=== PATIENT | female | born 1990 | race Caucasian/White ===

== ENCOUNTER 2020-01-10 23:53 | Emergency (ER) | payer BC, SELFPAY ==
--- NOTE | ~2020-01-10 | CT_ITS ---
EXAMINATION: CT abdomen pelvis w con DATE: 01/11/2020 01:06 INDICATION: Left-sided abdominal pain and vomiting. TECHNIQUE: Computed tomography (CT) of the abdomen and pelvis was performed with 100 mL Omnipaque-350 intravenous contrast. Automated exposure control and iterative reconstruction technique were employe d. The dose-length product was 1613.22 mGy-cm. COMPARISON: 12/22/2017 FINDINGS: Lung bases are clear. Heart size is normal. No pericardial or pleural effusion. Diffuse hepatic steat osis with focal sparing along the gallbladder fossa. Gallbladder, spleen, pancreas, bilateral adrenal glands and left kidney are normal. Nonobstructing 3 mm stone at the upper pole calyx of the left kid migdalia. There is wall thickening along several loops of jejunum in the left abdomen with hyperemia and e jihan of the associated small bowel mesentery. Fluid throughout the proximal colon consistent with jacinda rrhea. Appendix is normal. There is an approximately 1 cm nodular density at the cecum near the appen diceal orifice which is of similar density to the enhancing mucosa in the small bowel. Small amount o f lower density stool in the distal colon. Small amount of ascites along the liver, in the pelvis and scattered along the mesentery. No abscess or free intraperitoneal gas. Bladder, anteverted uterus an d bilateral adnexa are unremarkable. No pathologically enlarged abdominal or pelvic lymphadenopathy. Mild scattered degenerative skeletal changes. IMPRESSION: 1. Jejunal wall thickening with associated inflammatory changes, small amount of ascites and diarrhea consistent with enteritis which could be infectious, inflammatory or less likely ischemic in etiolog y. 2. 3 mm nonobstructing right renal stone. 3. 1 cm nodular density possibly a polyp near the tip of the cecum. Consider colonoscopy for further evaluation. 4. Diffuse hepatic steatosis. Reviewed, dictated and finalized at location A. IMPRESSION: 1. Jejunal wall thickening with associated inflammatory changes, small amount o f ascites and diarrhea consistent with enteritis which could be infectious, inf lammatory or less likely ischemic in etiology. 2. 3 mm nonobstructing right renal stone. 3. 1 cm nodular density possibly a polyp near the tip of the cecum. Consider co lonoscopy for further evaluation. 4. Diffuse hepatic steatosis.
[2020-01-10 23:51] VITALS: BP 92/74; PULSE 80; RESP 15; TEMP 37.1; O2SAT 100
--- NOTE | 2020-01-11 00:04 | ED.ABDPAIN ---
HPI - Abdominal Pain General Chief Complaint: Abdominal Pain Stated Complaint: abd pain Time Seen by Provider: 01/10/20 23:54 Source: patient and EMS Mode of arrival: EMS Limitations: no limitations History of Present Illness HPI narrative: Patient is a 29-year-old female who presents for evaluation of abdominal pain. Pain started approximately an hour ago, awakened the patient from sleep. Patient reporting pain in the left side of the abdomen with radiation into the left lower abdomen. She denies back or chest pain. No flank pain. No dysuria or hematuria. Patient reports she has had numerous episodes of diarrhea without blood or mucus present. She has had numerous episodes of nonbloody, nonbilious emesis. She has been diaphoretic. Patient without abdominal distention. She states she does not have any recent food indiscretions, has been eating at home. Had some possible zucchini for dinner. Recently started a new diet in effort to lose weight. No sick contacts at home. Patient denies vaginal bleeding, vaginal discharge. Related Data Allergies Allergy/AdvReac Type Severity Reaction Status Date / Time Cephalosporins Allergy Intermediate RASH Verified 01/10/20 23:57 Review of Systems Review of Systems: Narrative: CONSTITUTIONAL: Denies fever, chills, or sweats. EYES: Denies visual changes, redness, or discharge. ENT: Denies rhinorrhea, congestion, sore throat, or otalgia. CARDIOVASCULAR: Denies chest pain, palpitations, or edema. RESPIRATORY: Denies cough or dyspnea. GASTROINTESTINAL: Reports abdominal pain, nausea, vomiting and diarrhea GENITOURINARY: Denies dysuria or hematuria. SKIN: Denies rash or itching. MUSCULOSKELETAL: Denies back pain, joint pain, or myalgia. NEUROLOGIC: Denies headache, numbness, or weakness. [facility] Surgical History Surgical History (Updated 01/11/20 @ 00:11 by Josefina Rogers MD) Hx of tonsillectomy Social History Social History Smoking status: Former smoker Second hand tobacco smoke exposure: No Smoking end date: 09/07/12 Alcohol intake: current Exam Narrative: Exam Narrative: GENERAL: Awake, alert, conversant, diaphoretic HEAD: Normocephalic, atraumatic. EYES: PERRLA and EOMI. ENT: Nares clear, no rhinorrhea or epistaxis. Mucous membranes moist. NECK: Supple. CHEST: No respiratory distress, breathing even and non labored HEART: Regular rate, sinus rhythm ABDOMEN:Non distended, non tender on exam, patient has no guarding, no rigidity, no flank tenderness, no right upper quadrant tenderness EXTREMITIES: Normal range of motion. No edema. SKIN: Warm, dry, no rash. NEURO:No focal deficits. Alert and oriented x3 Course Vital Signs Vital signs: Vital Signs Temperature 37.1 C 01/10/20 23:51 Pulse Rate 80 01/10/20 23:51 Respiratory Rate 15 01/10/20 23:51 Blood Pressure 92/74 L 01/10/20 23:51 Pulse Oximetry 100 01/10/20 23:51 Temperature 37.1 C 01/10/20 23:51 Pulse Rate 78 01/11/20 01:55 Respiratory Rate 17 01/11/20 01:55 Blood Pressure 131/82 01/11/20 01:55 Pulse Oximetry 99 01/11/20 01:55 MDM - Abdominal Pain MDM Narrative Medical decision making narrative: Patient presented to the emergency department for evaluation of abdominal pain, vomiting and diarrhea. At the time of initial assessment, patient is noted to be mildly hypotensive, no tachycardia, afebrile. Patient is reporting abdominal tenderness, but on exam has no tenderness, guarding or rigidity. Patient was given IV fluids, antiemetic, pain medication with good improvement in her symptoms. Laboratory results notable for leukocytosis without electrolyte abnormality or acute kidney injury. No UTI. Patient is not . CT scan is consistent with enterocolitis. Given leukocytosis, diarrhea, I believe we should do short course of antibiotics in this patient. Patient has a penicillin allergy, thus I cannot prescribe Au
[2020-01-11] MEDS: MORPHINE SULFATE 4 MG/ML INJ IV PUSH (00:10)
[2020-01-11] MEDS: SODIUM CHLORIDE 0.9% IV 1,000 ML 999 ML IV CONT ×2 (00:10→00:24)
[2020-01-11 00:12] LABS: Basophils Absolute Auto 0.1 K/mm3 (0.0-0.1); Basophils Percent Auto 0.3 % (0.2-1.2); Eosinophils Absolute Auto 0.2 K/mm3 (0-0.3); Eosinophils Percent Auto 1.4 % (0-4.4); Hematocrit 51.2 % (37.0-47.0); Hemoglobin 17.1 g/dL (12.0-15.0); Immature Granulocyte Absolute 0.08 K/mm3 (0.00-0.031); Immature Granulocyte Percent A 0.6 % (0-0.5); Lymphocytes Absolute Auto 3.85 K/mm3 (0.9-3.2); Lymphocytes Percent Auto 26.5 % (18.3-44.2); Mean Corpuscular HGB Conc 33.4 g/dl (32-36); Mean Corpuscular Hemoglobin 28.3 pg (26-34); Mean Corpuscular Volume 84.8 fl (80-100); Mean Platelet Volume 10.1 fl (7.4-10.4); Monocytes Absolute Auto 0.7 K/mm3 (0.1-0.6); Monocytes Percent Auto 4.5 % (2.6-8.5); Neutrophils Absolute Auto 9.7 K/mm3 (1.3-6.7); Neutrophils Percent Auto 66.7 % (45.5-73.1); Platelet Count Result 365 k/mm3 (150-375); Red Blood Count 6.04 M/mm3 (4.2-5.4); Red Cell Distribution Width 12.8 % (11.5-14.5); White Blood Count 14.5 K/mm3 (4.5-10.0)
[2020-01-11 00:24] LABS: Alanine Aminotransferase 31 U/L (4-35); Albumin Level 4.3 g/dL (3.5-5.1); Alkaline Phosphatase 71 U/L (38-126); Aspartate Amino Transferase 27 U/L (14-36); Bilirubin,Total 0.3 mg/dL (0.2-1.3); Blood Urea Nitrogen 15 mg/dL (7-17); Calcium 9.5 mg/dL (8.4-10.2); Carbon Dioxide 22 mmol/L (22-30); Chloride 106 mmol/L (98-107); Estimated Glomerular Filt Rate > 60; Glucose 116 mg/dL (65-105); Lipase 106 U/L (23-300); Potassium 3.9 mmol/L (3.4-5.0); Sodium 136 mmol/L (137-145)
[2020-01-11] MEDS: DICYCLOMINE HCL INJ 20 MG/2 ML VIAL IM (00:24)
[2020-01-11 00:33] VITALS: BP 132/98
[2020-01-11 00:59] LABS: Add Urine Microscopic? YES; Appearance Urine Clear (Clear); Bacteria Urine Trace /hpf; Bilirubin Urine Negative (Negative); Blood Urine Negative (Negative); Color Urine Yellow (Yellow); Glucose Urine UA Negative (Negative); Ketones Urine Negative (Negative); Leukocyte Esterase Ur Trace LEU/UL (Negative); Mucus Urine Rare /lpf; Nitrate Urine Negative (Negative); Protein Urine 1+ mg/dL (Negative); Squamous Epithelial Cell Urine Moderate /hpf (Few); Urobilinogen Urine Negative mg/dL (<2.0)
[2020-01-11 01:04] LABS: Lactic Acid Reflex 1.7 mmol/L (0.7-2.1)
[2020-01-11 01:34] VITALS: BP 130/76; PULSE 72; RESP 19; O2SAT 100
[2020-01-11 01:55] VITALS: BP 131/82; PULSE 78; RESP 17; O2SAT 99
--- NOTE | 2020-01-11 02:34 | ECG_ITS ---
Measurements Intervals [place] Rate: 59 P: 43 CA: 159 QRS: 59 QRSD: 93 T: 49 QT: 416 QTc: 415 Interpretive Statements SINUS BRADYCARDIA LOW QRS VOLTAGE IN PRECORDIAL LEADS BORDERLINE T WAVE ABNORMALITY- ANT/INF LEADS BASELINE ARTIFACT- I, II, III, AVL, AVF BORDERLINE ECG Electronically Signed On 01-11-2020 7:14:36 CDT by Stu Michael D.O.
== END 2020-01-11 01:55 | disposition home or self-care (01) ==
PROVIDERS: Emergency Provider Emergency Medicine; PCP Emergency Medicine
DX: K52.9 Noninfective gastroenteritis and colitis, unspecified (principal); Z87.891 Personal history of nicotine dependence; R00.1 Bradycardia, unspecified; R94.31 Abnormal electrocardiogram [ECG] [EKG]
CPT/HCPCS: 36415; 74177; 80053; 81001; 81025; 83605; 83690; 85025; 87040; 87077; 87086; 87088; 87186; 93005; 96361; 96372; 96374; 96375; 99284; J0131; J0500; J2270; J7030; Q9967

== ENCOUNTER 2020-04-21 12:24 | Emergency (ER) | payer BC, SELFPAY ==
--- NOTE | ~2020-04-21 | CT_ITS ---
EXAMINATION: CT abdomen pelvis w con DATE: 04/21/2020 14:04 INDICATION: Right lower quadrant abdominal pain. TECHNIQUE: Computed tomography (CT) of the abdomen and pelvis was performed with 100 mL Omnipaque 350 intravenous contrast. Automated exposure control and iterative reconstruction technique were employe d. The dose-length product was 1448.53 mGy-cm. COMPARISON: CT abdomen and pelvis 01/11/2020 FINDINGS: The visualized portions of the lung bases are clear without pneumonia or pleural effusion. The heart size is normal. No pericardial effusion. The liver, gallbladder, spleen, pancreas, adrenal glands, and left kidney are normal. There is a 2 mm stone in right kidney. There are no dilated loops of bowel. The appendix is normal. There are no pathologically enlarged lymph nodes. There is no free intraperitoneal fluid. There is mild lumbar spondylosis. IMPRESSION: 1. 2 mm nonobstructing right kidney stone. Reviewed, dictated and finalized at location A.
[2020-04-21 12:26] VITALS: BP 135/91; PULSE 84; RESP 20; TEMP 36.7; O2SAT 99
--- NOTE | 2020-04-21 12:44 | ED.ABDPAIN ---
HPI - Abdominal Pain General Chief Complaint: Abdominal Pain Stated Complaint: post op complications, RLQ abd pain, vaginal bleed Time Seen by Provider: 04/21/20 12:43 Source: patient History of Present Illness HPI narrative: Right lower quadrant pain started yesterday, sharp stabbing, denies any fever, chills, nausea, vomiting, diarrhea, constipation, urinary symptoms. Patient is status post bilateral tubal ligation and ablation on April 10. Been having vaginal bleeding since the procedure. Related Data Home Medications Medication Instructions Recorded Confirmed alprazolam 04/21/20 hydrocodone-acetaminophen 04/21/20 ibuprofen 04/21/20 lamotrigine 04/21/20 ondansetron 04/21/20 pantoprazole PO 04/21/20 rosuvastatin mg 04/21/20 Allergies Allergy/AdvReac Type Severity Reaction Status Date / Time Cephalosporins Allergy Intermediate RASH Verified 04/21/20 12:43 Review of Systems Review of Systems: Narrative: CONSTITUTIONAL: Denies fever, chills, or sweats. EYES: Denies visual changes, redness, or discharge. ENT: Denies rhinorrhea, congestion, sore throat, or otalgia. CARDIOVASCULAR: Denies chest pain, palpitations, or edema. RESPIRATORY: Denies cough or dyspnea. GASTROINTESTINAL: Denies abdominal pain, nausea, vomiting, or diarrhea. GENITOURINARY: Denies dysuria or hematuria. SKIN: Denies rash or itching. MUSCULOSKELETAL: Denies back pain, joint pain, or myalgia. NEUROLOGIC: Denies headache, numbness, or weakness. PSYCHIATRIC: Denies anxiety or depression. PMFSH Past Medical History Medical History Depression GERD (gastroesophageal reflux disease) Surgical History Surgical History Hx of tonsillectomy Social History Social History Smoking status: Former smoker Second hand tobacco smoke exposure: No Smoking end date: 09/07/12 Alcohol intake: current Exam Narrative: Exam Narrative: General appearance: Well-developed, well-nourished, morbidly obese, no family member at bedside Skin: Normal color Head: Normocephalic, nontraumatic Eyes: Clear conjunctiva ENT: Oropharynx normal, ears normal, nose normal Neck: Supple, nontender Chest and respiratory: Airway patent, no respiratory distress, no accessory muscle use Heart: Regular rate/rhythm Abdomen: Soft, mild tenderness right lower quadrant, no organomegaly, quiet bowel sounds Vascular: Normal peripheral pulses, normal capillary refill. Musculoskeletal: Normal range of motion, nontender back Neurologic: Alert and oriented ?3, TESTER REGULATOR is normal as tested, no gross motor deficit : External Female Exam: normal external appearance Speculum Exam - Cervix: normal appearance of the cervix and Other cervical findings present (Trace of pink blood in the vaginal pouch, no active bleeding) Bimanual exam- vagina & uterus: normal bimanual exam Bimanual Exam- Adnexa, other: normal adnexae Course Course Emergency Course: Stable Vital Signs Vital signs: Vital Signs Temperature 36.7 C 04/21/20 12:26 Pulse Rate 84 04/21/20 12:26 Respiratory Rate 20 04/21/20 12:26 Blood Pressure 135/91 H 04/21/20 12:26 Pulse Oximetry 99 04/21/20 12:26 Temperature 36.7 C 04/21/20 15:17 Pulse Rate 60 04/21/20 15:17 Respiratory Rate 14 04/21/20 15:17 Blood Pressure 131/68 04/21/20 15:17 Pulse Oximetry 100 04/21/20 15:17 MDM - Abdominal Pain MDM Narrative Medical decision making narrative: Labs, CT abdomen and pelvis with IV contrast, IV fluid ordered. Further plan to follow Differential Diagnosis Dif
[2020-04-21 13:37] LABS: Basophils Percent Auto 0.4 % (0.2-1.2); Eosinophils Absolute Auto 0.4 K/mm3 (0-0.3); Eosinophils Percent Auto 4.1 % (0-4.4); Hematocrit 42.3 % (37.0-47.0); Hemoglobin 14.3 g/dL (12.0-15.0); Immature Granulocyte Absolute 0.03 K/mm3 (0.00-0.031); Immature Granulocyte Percent A 0.3 % (0-0.5); Lymphocytes Absolute Auto 2.42 K/mm3 (0.9-3.2); Lymphocytes Percent Auto 26.7 % (18.3-44.2); Mean Corpuscular HGB Conc 33.8 g/dl (32-36); Mean Corpuscular Hemoglobin 28.6 pg (26-34); Mean Corpuscular Volume 84.6 fl (80-100); Mean Platelet Volume 10.9 fl (7.4-10.4); Monocytes Absolute Auto 0.5 K/mm3 (0.1-0.6); Monocytes Percent Auto 5.3 % (2.6-8.5); Neutrophils Absolute Auto 5.7 K/mm3 (1.3-6.7); Neutrophils Percent Auto 63.2 % (45.5-73.1); Platelet Count Result 315 k/mm3 (150-375); Red Cell Distribution Width 12.8 % (11.5-14.5); White Blood Count 9.1 K/mm3 (4.5-10.0)
[2020-04-21 13:50] VITALS: BP 131/80; PULSE 74; RESP 18; TEMP 36.8; O2SAT 100
[2020-04-21 13:50] LABS: Alanine Aminotransferase 24 U/L (4-35); Albumin Level 4.6 g/dL (3.5-5.1); Alkaline Phosphatase 67 U/L (38-126); Anion Gap 10 mmol/L (8-16); Aspartate Amino Transferase 24 U/L (14-36); Bilirubin,Total 0.4 mg/dL (0.2-1.3); Blood Urea Nitrogen 10 mg/dL (7-17); Calcium 9.6 mg/dL (8.4-10.2); Carbon Dioxide 20 mmol/L (22-30); Chloride 108 mmol/L (98-107); Estimated CRCL calculation 126 ml/min; Estimated Glomerular Filt Rate > 60; Glucose 82 mg/dL (65-105); Lipase 75 U/L (23-300); Potassium 3.9 mmol/L (3.4-5.0); Sodium 138 mmol/L (137-145)
[2020-04-21] MEDS: SODIUM CHLORIDE 0.9% IV 1,000 ML 999 ML IV CONT (14:13)
[2020-04-21] MEDS: MORPHINE SULFATE 4 MG/ML INJ IV PUSH (15:12)
[2020-04-21] MEDS: ONDANSETRON INJ 4 MG/2 ML VIAL IV PUSH (15:12)
[2020-04-21 15:17] VITALS: BP 131/68; PULSE 60; RESP 14; TEMP 36.7; O2SAT 100
--- NOTE | 2020-04-21 15:38 | ED.ABDPAIN ---
HPI - Abdominal Pain General Chief Complaint: Abdominal Pain Stated Complaint: post op complications, RLQ abd pain, vaginal bleed Time Seen by Provider: 04/21/20 12:43 Source: patient Related Data Home Medications Medication Instructions Recorded Confirmed alprazolam 04/21/20 hydrocodone-acetaminophen 04/21/20 ibuprofen 04/21/20 lamotrigine 04/21/20 ondansetron 04/21/20 pantoprazole PO 04/21/20 rosuvastatin mg 04/21/20 Allergies Allergy/AdvReac Type Severity Reaction Status Date / Time Cephalosporins Allergy Intermediate RASH Verified 04/21/20 12:43 [facility] Past Medical History Medical History Depression GERD (gastroesophageal reflux disease) Surgical History Surgical History Hx of tonsillectomy Social History Social History Smoking status: Former smoker Second hand tobacco smoke exposure: No Smoking end date: 09/07/12 Alcohol intake: current Course Consultations Consultation #1: Dr. Titus. Patient can go home call Dr. Smith Thursday Date: 04/21/20 Time: 15:39 Vital Signs Vital signs: Vital Signs Temperature 36.7 C 04/21/20 12:26 Pulse Rate 84 04/21/20 12:26 Respiratory Rate 20 04/21/20 12:26 Blood Pressure 135/91 H 04/21/20 12:26 Pulse Oximetry 99 04/21/20 12:26 Temperature 36.7 C 04/21/20 15:17 Pulse Rate 60 04/21/20 15:17 Respiratory Rate 14 04/21/20 15:17 Blood Pressure 131/68 04/21/20 15:17 Pulse Oximetry 100 04/21/20 15:17 MDM - Abdominal Pain Lab Data Result diagrams: 04/21/20 13:24 04/21/20 13:23 Labs: Lab Results 04/21/20 04/21/20 04/21/20 Range/Units 13:23 13:24 13:27 WBC 9.1 (4.5-10.0) K/mm3 RBC 5.00 (4.2-5.4) M/mm3 Hgb 14.3 (12.0-15.0) g/dL Hct 42.3 (37.0-47.0) % MCV 84.6 (80-100) fl MCH 28.6 (26-34) pg MCHC 33.8 (32-36) g/dl RDW 12.8 (11.5-14.5) % Plt Count 315 (150-375) k/mm3 MPV 10.9 H (7.4-10.4) fl Immature Gran % (Auto) 0.3 (0-0.5) % Neut % (Auto) 63.2 (45.5-73.1) % Lymph % (Auto) 26.7 (18.3-44.2) % [place] % (Auto) 5.3 (2.6-8.5) % Eos % (Auto) 4.1 (0-4.4) % Baso % (Auto) 0.4 (0.2-1.2) % Lymph # (Auto) 2.42 (0.9-3.2) K/mm3 [place] # (Auto) 0.5 (0.1-0.6) K/mm3 Eos # (Auto) 0.4 H (0-0.3) K/mm3 Baso # (Auto) 0.0 (0.0-0.1) K/mm3 Abs Immat Gran (auto) 0.03 (0.00-0.031) K/mm3 Absolute Neuts (auto) 5.7 (1.3-6.7) K/mm3 Absolute Nucleated RBC 0.0 (0.0-0.012) K/mm3 Nucleated RBC % 0.0 (0.0-0.2) % Sodium 138 (137-145) mmol/L Potassium 3.9 (3.4-5.0) mmol/L Chloride 108 H (98-107) mmol/L Carbon Dioxide 20 L (22-30) mmol/L Anion Gap 10 (8-16) mmol/L BUN 10 D (7-17) mg/dL Creatinine 0.80 (0.7-1.0) mg/dL Estim Creat Clear Calc 126 ml/min Estimated GFR > 60 (59 - ) Glucose 82 (65-105) mg/dL Calcium 9.6 (8.4-10.2) mg/dL Total Bilirubin 0.4 (0.2-1.3) mg/dL AST 24 (14-36) U/L ALT 24 (4-35) U/L Alkaline Phosphatase 67 (38-126) U/L Total Protein 8.0 (6.3-8.2) g/dL Albumin 4.6 (3.5-5.1) g/dL Lipase 75 (23-300) U/L Blood Type O Negative Antibody Screen Negative Imaging Data Radiologist's impression: ITS Impressions Abdomen/Pelvis CT 04/21/20 14:05 IMPRESSION: 1. 2 mm nonobstructing right kidney stone. Discharge Plan Discharge Clinical Impression: DUH (dysfunctional uterine hemorrhage) Abdominal pain Qualifiers: Abdominal location: right lower quadrant Qualified Code(s): R10.31 - Right lower quadrant pain Condition: Stable Instructions: Dysfunctional Uterine Bleeding (ED), Abdominal Pain (ED) Additional Instructions: Return if symptoms are worsening , call your family physician for appointment, take Ty
[2020-04-21 15:59] LABS: Add Urine Microscopic? YES; Appearance Urine Clear (Clear); Bacteria Urine Trace /hpf; Bilirubin Urine Negative (Negative); Blood Urine 3+ (Negative); Color Urine Yellow (Yellow); Glucose Urine UA Negative (Negative); Ketones Urine 1+ mg/dL (Negative); Leukocyte Esterase Ur Trace LEU/UL (Negative); Mucus Urine Rare /lpf; Nitrate Urine Negative (Negative); Protein Urine 1+ mg/dL (Negative); RBC Urine 51-75 /hpf (0-2); Squamous Epithelial Cell Urine Many /hpf (Few); Urobilinogen Urine Negative mg/dL (<2.0); WBC Urine 16-20 /hpf
[2020-04-21 16:01] LABS: Specific Grav Ur > 1.060 (1.001-1.035)
[2020-04-21 16:26] VITALS: BP 133/76; PULSE 72; RESP 16; TEMP 36.8; O2SAT 100
== END 2020-04-21 16:26 | disposition home or self-care (01) ==
LOC: ANHED 14:07
PROVIDERS: Emergency Provider Emergency Medicine; PCP Emergency Medicine
DX: N93.9 Abnormal uterine and vaginal bleeding, unspecified (principal); R10.31 Right lower quadrant pain; K21.9 Gastro-esophageal reflux disease without esophagitis; F32.9 Major depressive disorder, single episode, unspecified; Z87.891 Personal history of nicotine dependence; N20.0 Calculus of kidney; Z98.51 Tubal ligation status
CPT/HCPCS: 36415; 74177; 80053; 81001; 81025; 83690; 85025; 86850; 86900; 86901; 87086; 87088; 96374; 96375; 99284; J2270; J2405; J7030; Q9967

== ENCOUNTER 2020-09-28 17:39 | Emergency (ER) | payer BC, SELFPAY ==
--- NOTE | 2020-09-28 17:40 | ECG_ITS ---
Measurements Intervals [place] Rate: 65 P: 62 OR: 158 QRS: 46 QRSD: 93 T: 64 QT: 410 QTc: 427 Interpretive Statements SINUS RHYTHM WITH SINUS ARRHYTHMIA INCOMPLETE RIGHT BUNDLE BRANCH BLOCK DELAYED PRECORDIAL R/S TRANSITION BORDERLINE T WAVE ABNORMALITY- ANTERIOR LEADS BORDERLINE ECG Electronically Signed On 09-28-2020 19:32:38 DIP LUBE OPERATOR by Stu Michael D.O.
[2020-09-28 17:41] VITALS: BP 133/84; PULSE 64; RESP 20; TEMP 36.2; O2SAT 99
[2020-09-28 18:29] LABS: Basophils Percent Auto 0.4 % (0.2-1.2); Eosinophils Absolute Auto 0.3 K/mm3 (0-0.3); Hematocrit 42.6 % (37.0-47.0); Hemoglobin 14.4 g/dL (12.0-15.0); Immature Granulocyte Absolute 0.02 K/mm3 (0.00-0.031); Immature Granulocyte Percent A 0.2 % (0-0.5); Lymphocytes Absolute Auto 2.24 K/mm3 (0.9-3.2); Mean Corpuscular HGB Conc 33.8 g/dl (32-36); Mean Corpuscular Hemoglobin 28.9 pg (26-34); Mean Corpuscular Volume 85.5 fl (80-100); Mean Platelet Volume 9.9 fl (7.4-10.4); Monocytes Absolute Auto 0.5 K/mm3 (0.1-0.6); Monocytes Percent Auto 5.5 % (2.6-8.5); Neutrophils Absolute Auto 5.9 K/mm3 (1.3-6.7); Neutrophils Percent Auto 65.9 % (45.5-73.1); Platelet Count Result 293 k/mm3 (150-375); Red Blood Count 4.98 M/mm3 (4.2-5.4); Red Cell Distribution Width 12.8 % (11.5-14.5)
[2020-09-28 18:42] LABS: Anion Gap 8 mmol/L (8-16); Blood Urea Nitrogen 13 mg/dL (7-17); Calcium 9.8 mg/dL (8.4-10.2); Carbon Dioxide 26 mmol/L (22-30); Chloride 105 mmol/L (98-107); Estimated CRCL calculation 120 ml/min; Estimated Glomerular Filt Rate > 60; Glucose 100 mg/dL (65-105); Potassium 4.4 mmol/L (3.4-5.0); Sodium 139 mmol/L (137-145)
== END 2020-09-28 19:12 | disposition left against medical advice (07) ==
LOC: ANHED 19:33
PROVIDERS: Emergency Provider Emergency Medicine; PCP Emergency Medicine
DX: R42 Dizziness and giddiness (principal)
CPT/HCPCS: 36415; 80048; 85025; 93005; 99199

== ENCOUNTER 2021-05-11 16:15 | Emergency (ER) | payer BC, SELFPAY ==
--- NOTE | ~2021-05-11 | CT_ITS ---
EXAMINATION: CT abdomen pelvis w con DATE: 05/11/2021 19:21 INDICATION: Right upper quadrant abdominal pain. TECHNIQUE: Computed tomography (CT) of the abdomen and pelvis was performed with 100 mL Omnipaque 350 intravenous contrast. Automated exposure control and iterative reconstruction technique were employe d. The dose-length product was 1366.46 mGy-cm. COMPARISON: CT abdomen and pelvis 04/21/2020 FINDINGS: The visualized portions of the lung bases are clear without pneumonia or pleural effusion. The heart size is normal. No pericardial effusion. The liver, gallbladder, spleen, pancreas, adrenal glands, and left kidney are normal. There is a 2 mm stone in right kidney. There are no dilated loops of bowel. The appendix is normal. There are no pathologically enlarged lymph nodes. There is no free intraperitoneal fluid. There is mild lumbar spondylosis. IMPRESSION: 1. 2 mm nonobstructing right kidney stone. Reviewed, dictated and finalized at location A.
[2021-05-11 16:22] VITALS: BP 136/84; PULSE 107; RESP 20; TEMP 36.7; O2SAT 100
[2021-05-11 17:11] LABS: Basophils Percent Auto 0.3 % (0.2-1.2); Eosinophils Absolute Auto 0.2 K/mm3 (0-0.3); Eosinophils Percent Auto 2.2 % (0-4.4); Hematocrit 42.4 % (37.0-47.0); Hemoglobin 14.2 g/dL (12.0-15.0); Immature Granulocyte Absolute 0.03 K/mm3 (0.00-0.031); Immature Granulocyte Percent A 0.3 % (0-0.5); Lymphocytes Absolute Auto 2.46 K/mm3 (0.9-3.2); Mean Corpuscular HGB Conc 33.5 g/dl (32-36); Mean Corpuscular Hemoglobin 29.2 pg (26-34); Mean Corpuscular Volume 87.2 fl (80-100); Mean Platelet Volume 10.6 fl (7.4-10.4); Monocytes Absolute Auto 0.4 K/mm3 (0.1-0.6); Neutrophils Absolute Auto 5.6 K/mm3 (1.3-6.7); Neutrophils Percent Auto 64.2 % (45.5-73.1); Platelet Count Result 263 k/mm3 (150-375); Red Blood Count 4.86 M/mm3 (4.2-5.4); Red Cell Distribution Width 12.3 % (11.5-14.5); White Blood Count 8.8 K/mm3 (4.5-10.0)
[2021-05-11 17:21] LABS: Alanine Aminotransferase 22 U/L (4-35); Albumin Level 4.7 g/dL (3.5-5.1); Alkaline Phosphatase 67 U/L (38-126); Anion Gap 10 mmol/L (8-16); Aspartate Amino Transferase 25 U/L (14-36); Bilirubin,Total 0.4 mg/dL (0.2-1.3); Blood Urea Nitrogen 10 mg/dL (7-17); Calcium 9.8 mg/dL (8.4-10.2); Carbon Dioxide 19 mmol/L (22-30); Chloride 110 mmol/L (98-107); Estimated CRCL calculation 132 ml/min; Estimated Glomerular Filt Rate > 60; Glucose 97 mg/dL (65-110); Lipase 93 U/L (23-300); Potassium 3.6 mmol/L (3.4-5.0); Sodium 139 mmol/L (137-145)
[2021-05-11 17:21] LABS: Add Urine Microscopic? YES; Appearance Urine Clear (Clear); Bacteria Urine Trace /hpf; Bilirubin Urine Negative (Negative); Blood Urine Negative (Negative); Color Urine Yellow (Yellow); Glucose Urine UA Negative (Negative); Ketones Urine 1+ mg/dL (Negative); Leukocyte Esterase Ur Negative LEU/UL (Negative); Mucus Urine Few /lpf; Nitrate Urine Negative (Negative); Protein Urine Negative (Negative); Specific Grav Ur 1.025 (1.001-1.035); Squamous Epithelial Cell Urine Many /hpf (Few); Urobilinogen Urine Negative mg/dL (<2.0); WBC Urine 0-3 /hpf
--- NOTE | 2021-05-11 18:40 | ED.ABDPAIN ---
HPI - Abdominal Pain General Chief Complaint: Abdominal Pain Stated Complaint: abd pain Time Seen by Provider: 05/11/21 18:09 Source: patient Mode of arrival: ambulatory Limitations: no limitations History of Present Illness HPI narrative: This is a 30-year-old female that presents the emergency department for right upper quadrant pain present over the last 5 days. Reports the pain is sharp in nature. She feels pressure in the right upper quadrant after she eats sometimes. Does also report some diarrhea. Denies fever, nausea, vomiting, or dysuria. Related Data Home Medications Medication Instructions Recorded Confirmed alprazolam 04/21/20 hydrocodone-acetaminophen 04/21/20 ibuprofen 04/21/20 lamotrigine 04/21/20 ondansetron 04/21/20 pantoprazole PO 04/21/20 rosuvastatin mg 04/21/20 Allergies Allergy/AdvReac Type Severity Reaction Status Date / Time Cephalosporins Allergy Intermediate RASH Verified 04/21/20 12:43 Review of Systems Review of Systems: CONSTITUTIONAL: Denies fever GASTROINTESTINAL: Reports abdominal pain. Denies nausea, vomiting GENITOURINARY: Denies dysuria All systems reviewed & are unremarkable except as noted in HPI and below PMFSH Past Medical History Medical History (Updated 05/11/21 @ 20:19 by Daiana Islas PA-C) Depression GERD (gastroesophageal reflux disease) Surgical History Surgical History Hx of tonsillectomy Social History Social History Smoking status: Former smoker Second hand tobacco smoke exposure: No Smoking end date: 09/07/12 Alcohol intake: current Gender identity (if verbalized by the patient): Female Exam Narrative: GENERAL: Well-appearing, obese, and in no acute distress. HEAD: Normocephalic, atraumatic. EYES: EOMI. CHEST: Clear to auscultation. No respiratory distress. No wheezes rales or rhonchi HEART: Regular rate and rhythm. No murmur heard. Normal peripheral pulses. ABDOMEN: Soft, nondistended, normal active bowel sounds. Tender to palpation in the right upper quadrant, without guarding. No CVA tenderness EXTREMITIES: Normal range of motion. No edema. SKIN: Warm, dry, no rash. NEURO: No focal deficits. Alert and oriented x3. PSYCH: Normal mood and affect Course Vital Signs Vital signs: Vital Signs Temperature 98.1 F 05/11/21 16:22 Pulse Rate 107 H 05/11/21 16:22 Respiratory Rate 20 05/11/21 16:22 Blood Pressure 136/84 05/11/21 16:22 Pulse Oximetry 100 05/11/21 16:22 Temperature 98.1 F 05/11/21 16:22 Pulse Rate 107 H 05/11/21 16:22 Respiratory Rate 20 05/11/21 16:22 Blood Pressure 136/84 05/11/21 16:22 Pulse Oximetry 100 05/11/21 16:22 MDM - Abdominal Pain MDM Narrative Medical decision making narrative: Patient presents to the emergency department for right upper quadrant abdominal pain present over the last 5 days. She is afebrile and nontoxic-appearing. Her vitals are stable. CBC and metabolic panel without concerning findings. Lipase is normal. UA without evidence of infection. Bedside test is negative. CT scan abdomen and pelvis is without acute findings. She has a nonobstructing 2 mm right kidney stone. Patient was updated on case findings. She is stable and felt appropriate for further outpatient evaluation. She was given warnings to return to the ER Lab Data Attestation: I reviewed the patient's lab results. Result diagrams: 05/11/21 16:42 05/11/21 16:42 Labs: Lab Results 05/11/21 05/11/21 05/11/21 Range/Units 16:42 16:42 16:43 WBC 8.8 (4.5-10.0) K/mm3 RBC 4.86 (4.2-5.4) M/mm3 Hgb 14.2 (12.0-15.0) g/dL Hct 42.4 (37.0-47.0) % MCV 87.2 (80-100) fl MCH 29.2 (26-34) pg MCHC 33.5 (32-36) g/dl RDW 12.3 (11.5-14.5) % Plt Count 263 (150-375) k/mm3 MPV 10.6 H (7.4-10.4) fl Im
[2021-05-11 20:40] VITALS: BP 135/95; PULSE 60; RESP 18; TEMP 36.6; O2SAT 100
== END 2021-05-11 20:50 | disposition home or self-care (01) ==
PROVIDERS: Emergency Provider Emergency Medicine
DX: R10.11 Right upper quadrant pain (principal); K21.9 Gastro-esophageal reflux disease without esophagitis; Z87.891 Personal history of nicotine dependence; N20.0 Calculus of kidney; F32.9 Major depressive disorder, single episode, unspecified
CPT/HCPCS: 36415; 74177; 80053; 81001; 81025; 83690; 85025; 99284; Q9967

== ENCOUNTER 2022-05-16 22:51 | Emergency (ER) | payer OTHER, SELFPAY ==
[2022-05-16 23:03] VITALS: BP 130/111; PULSE 101; RESP 18; TEMP 36.6; O2SAT 98
[2022-05-17 02:10] VITALS: BP 139/90; PULSE 73; RESP 16; O2SAT 100
--- NOTE | 2022-05-17 02:22 | ED.ANIMALBIT ---
HPI - Animal Bite General Chief Complaint: Animal Bite <Ynois Serrano DO - Last Filed: 05/17/22 02:50> Stated Complaint: right hand, pinkie laceration <Yonis Serrano DO - Last Filed: 05/17/22 02:50> Time Seen by Provider: 05/17/22 02:11 <Yonis Serrano DO - Last Filed: 05/17/22 02:50> Source: RN notes reviewed <Yonis Serrano DO - Last Filed: 05/17/22 02:50> History of Present Illness HPI narrative: Patient presents emergency department from home for cat scratch. 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 Patient states she is allergic to cephalosporins but has taken Augmentin before in the past with no differential denies any numbness or tingling to the finger <Yonis Serrano DO - Last Filed: 05/17/22 02:50> Related Data Home Medications: Home Medications Medication Instructions Recorded Confirmed alprazolam 0.5 mg tablet 04/21/20 hydrocodone 5 mg-acetaminophen 325 04/21/20 mg tablet ibuprofen 800 mg tablet 04/21/20 lamotrigine 100 mg tablet 04/21/20 ondansetron 4 mg disintegrating 04/21/20 tablet pantoprazole 40 mg tablet,delayed PO 04/21/20 release rosuvastatin 10 mg tablet mg 04/21/20 <Yonis Serrano DO - Last Filed: 05/17/22 02:50> Allergies/Adverse Reactions: Allergies Allergy/AdvReac Type Severity Reaction Status Date / Time Cephalosporins Allergy Intermediate RASH Verified 05/17/22 02:09 <Yonis Serrano DO - Last Filed: 05/17/22 02:50> Review of Systems Review of Systems: Gen.: Denies fevers or chills Musculoskeletal: See HPI Neuro: Denies numbness, tingling, weakness Skin: Rowena of reports laceration to right fifth digit Endo: Denies DM <Yonis Serrano DO - Last Filed: 05/17/22 02:50> PMFSH Past Medical History Medical History: Medical History (Updated 05/17/22 @ 02:25 by Yonis Serrano DO) Depression GERD (gastroesophageal reflux disease) <Yonis Serrano DO - Last Filed: 05/17/22 02:50> Surgical History Surgical History: Surgical History Hx of tonsillectomy <Yonis Serrano DO - Last Filed: 05/17/22 02:50> Social History Social History: Social History Smoking status: Former smoker Second hand tobacco smoke exposure: No Smoking end date: 09/07/12 Alcohol intake: current Gender identity (if verbalized by the patient): Female <DO Karen Sapp Last Filed: 05/17/22 02:50> Exam Narrative: APPEARANCE: No acute distress, nontoxic, resting in bed Eyes: EOMI HEENT: Normocephalic, atraumatic, RESPIRATORY: No respiratory distress MUSCULOSKELETAl: Right fifth digit over the palmar aspect has 1.5 cm laceration that is gaping with fat exposure between the PIP and DIP joint, full flexion-extension of the MCP PIP and DIP joints of the right fifth digit capillary refill less than 3 seconds neurovascular intact NEURO: Awake and alert. Following commands, speech normal, no focal deficits SKIN:: Warm, dry. Normal Color no rash or lesions <Yonis Serrano DO - Last Filed: 05/17/22 02:50> Course Course Emergency Course: Discussed with patient results of workup and diagnosis. Discussed need for follow-up with primary care, proper use of medication, and reasons to return to the emergency department. Patient understands and agrees to current treatment plan <Yonis Serrano DO - Last Filed: 05/17/22 02:50> Vital Signs Vital signs: Vital Signs Temperature 97.8 F 05/16/22 23:03 Pulse Rate 101 H 05/16/22 23:03 Respiratory Rate 18 09
[2022-05-17] MEDS: LIDOCAINE HCL 1% LOCAL INJ 20 ML VIAL (02:34)
[2022-05-17] MEDS: AMOXICILLIN/CLAVULANATE K 875-125 MG TAB 1 TABLET PO (02:34)
[2022-05-17 03:02] VITALS: BP 138/74; PULSE 80; RESP 16; TEMP 36.8; O2SAT 100
== END 2022-05-17 03:03 | disposition home or self-care (01) ==
LOC: ANHED 05-17 02:26
PROVIDERS: Emergency Provider Emergency Medicine
DX: S61.216A Laceration without foreign body of right little finger without damage to nail, initial encounter (principal); K21.9 Gastro-esophageal reflux disease without esophagitis; F32.A Depression, unspecified; Z87.891 Personal history of nicotine dependence; W55.03XA Scratched by cat, initial encounter
CPT/HCPCS: 12001; 99283; A9270

== ENCOUNTER → 2023-08-03 12:15 | Outpatient (CLI) | payer SELFPAY ==
--- NOTE | ~2023-08-03 | XR_ITS ---
EXAMINATION: XR chest 2V 08/03/2023 13:11 INDICATION: Cough PROCEDURE: 2 view chest COMPARISON: No prior studies for comparison. FINDINGS: The lungs are clear. The cardiomediastinal silhouette is within normal limits. There are no pleural effusions. There is no pneumothorax suspected. IMPRESSION: 1: NO ACUTE CARDIOPULMONARY DISEASE. Reviewed, dictated and finalized at location [facility]
== END ==
DX: R05.9 Cough, unspecified (principal)
CPT/HCPCS: 71046

== ENCOUNTER 2025-01-15 06:52 | Emergency (ER) | payer SELFPAY ==
--- OUTSIDE RECORDS SUMMARY | 2025-01-15 06:54 | XMS_ITS | Clinical Summary ---
Author Organization [facility] Address [address] [place] [address] Care Team Providers Care Station Agent Name Role Phone Glo Oh MD Primary Care Pro vider Allergies Active Allergy Reactions Criticality Noted Date Comments Cephalosporins Other (see comment) 04/20/2019 Sore in mouth Medications citalopram 20 MG tablet Take 10 mg by mouth daily. Active lamotrigine 100 MG tablet Take 100 mg by mouth nightly. Active hydrOXYzine 10 MG tablet Take 10-20 mg by mouth 2 (two) times daily as needed for Anxiety. Active ibuprofen 600 MG tablet Take 600 mg by mouth every 6 (six) hours as needed for Pain. Active ondansetron 4 MG tablet Take 4 mg by mouth every 8 (eight) hours as needed for Nausea. Active vitamin B-12 (VITAMIN B12) 100 MCG tablet Take 50 mcg by mouth daily. Unsure of dose Active Calcium Carbonate Antacid (ADRIENNE-SELTZER ANTACID OR) Take 1 capsule by mouth daily as needed. Active hydrocodone-asif taminophen 7.5-325 MG/15ML Solution solution Take 15-20 mLs by mouth every 6 (six) hours as needed for Pain. 500 mL 04/21/2019 Active Active Problems No known active problems Family History Medical History Relation Comments Cancer Maternal Grandmother breast,live r bipolar Mother Diabetes Paternal Grandmother Relation Status Comments Maternal Grandmother Mother Paternal Grandmother Social History Tobacco Use Types Packs/Day Years Used Date Smoking Tobacco: Former Cigarettes 0 04/20/2007 - 04/20/2014 Smokeless Tobacco: Never Comments:does vap currently- low nicotine level Alcohol Use Standard Drinks/Week Comments No 0 (1 standard drink = 0.6 oz pur e alcohol) AUDIT-C Answer Date Recorded Frequency of Alcohol Consumption Never 04/20/2019 Average Number of Drinks Not on file 019 Frequency of Binge Drinking Not on file 04/07 Comments No Sex and Gender Information Value Date Recorded Sex Assigned at Not on file Legal Sex Female 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[employer] Gender Identity Not on file Sexual Orientation Not on file Last Filed Vital Signs Vital Sign Reading Time Taken Comments Blood Pressure 134/90 04/21/2019 2:20 PM CDT Pulse 100 04/21/2019 2:20 PM CDT Temperature 36.9 C (98.5 F) 04/21/2019 2:20 PM CDT Respiratory Rate 18 04/21/2019 2:20 PM CDT Oxygen Saturation 95% 04/21/2019 2:20 PM CDT Inhaled Oxygen Concentration - - Weight 128.1 kg (282 lb 6.6 oz) 04/21/2019 9:54 AM CDT Height 170.2 cm (5' 7 ) 04/21/2019 9:54 AM CDT Body Mass Index 44.23 04/21/2019 9:54 AM CDT Plan of Treatment Health Maintenance Due Date Last Done Comments Cervical Cancer Screening Pa p Smear (Age 30 to 64) Every 3 Years 1992 Annual Physical 1995 Hepatitis C 2010 DTaP, Tdap and Td Vaccines ( 1 - Tdap) 2011 Hepatitis B Vaccines (1 of 3 - 19+ 3-dose series) 2011 Cervical Cancer Screening Pa p with HPV Testing (Age 30 to 64) Every 5 Years 2022 Cervical Cancer Screening with HPV 2022 COVID-19 Vaccine (2023-2 5 season) 2024 HPV Vaccines Aged Out No longer eligi ble based on patient's age to complete this topic Meningococcal B Vaccine Aged Out No l onger eligible based on patient's age to complete this topic Meningococcal Vaccine Aged Out No matthew lissa eligible based on patient's age to complete this topic Pneumococcal Vaccine: Pediat rics (0 to 5 Years) and At-Risk Patients (6 to 49 Years) Aged Out No longer eligible b ased on patient's age to complete this topic RSV Immunizations Under 20 Months Aged Out No longer eligible based on patient's age to complete this topic Insurance [facility] Care Teams Station Agent Relationship Specialty Start Date End Date Glo Oh MD [address] [place] [address] PCP - General FAMILY PRACTICE 04/20/19
--- OUTSIDE RECORDS SUMMARY | 2025-01-15 06:54 | XMS_ITS | Clinical Summary ---
Author Organization [facility] Address [address] [place] [address] Care Team Providers Care Wafer Cleaner Name Role Phone Darron Chilel MD Primary Care Provider [phone] Source Comments [facility],non-owned Affiliates and Associated Physician Practices is amultiple site organization consisting of ambulatory clinics and hospital sitesin [place], [place], [place] and [place]. This disclosure is being madepursuant to the Care Everywhere program and may not contain all information available regarding this patient. Last updated 18.[facility] Allergies Active Allergy Reactions Criticality Noted Date Comments Cephalosporins Other 12/17/2016 SORES IN MOUTH Medications * Be aware that medications may not be up to date on this document. Alwaysverify current medications with the patient. ALPRAZolam (XANAX) 0.5 MG tablet alprazolam 0.5 mg tablet Active citalopram (CELEXA) 10 MG tablet citalopram 10 mg tablet Active cyanocobalamin 100 MCG tablet Take 50 mcg by mouth once daily Active spironolactone (ALDACTONE) 100 MG tablet 11/15/19 21 Active ergocalciferol (DRISDOL) 1.25 MG (16114 UT) capsule ergocalciferol (vitamin D2) 1,250 mcg (50,000 unit) capsule Active lamoTRIgine (LAMICTAL) 100 MG tablet once daily Active ondansetron, disintegrating, (ZOFRAN ODT) 4 MG tablet ondansetron 4 mg disintegrating tablet Active Multiple Vitamins-Minera ls (MULTIVITAMIN WOMEN PO) Active cranberry (CRANBERRY) 400 MG tablet Take 400 mg by mouth once daily Active [place]-3 Fatty Acids (FISH OIL PO) vegan version per pt Active Munira, Zingiber officinalis, (MUNIRA ROOT) 550 MGIndications:N on-intractable vomiting with nausea, unspecified vomiting type Take 550 mg by mouth 2 times daily 60 capsule 4 12/11/19 21 Active famotidine (PEPCID) 40 MG tabletIndicatio ns:Non-intracta ble vomiting with nausea, unspecified vomiting type Take 0.5 (one-half) tablet by mouth once daily 60 tablet 5 12/11/19 21 Active pantoprazole EC (PROTONIX) 40 MG tabletIndicatio ns:Gastroesopha geal reflux disease without esophagitis Take 1 (one) tablet by mouth 2 times daily 90 tablet 5 12/30/19 21 Active Active Problems Problem Noted Date Diagnosed Date Nausea and vomiting 12/10/2020 Social History Tobacco Use Types Packs/Day Years Used Date Smoking Tobacco: Former Cigarettes Q uit: 12/10/2014 Smokeless Tobacco: Never Alcohol Use Standard Drinks/Week Comments Not Currently 0 (1 standard drink = 0.6 oz pur e alcohol) Comments No Sex and Gender Information Value Date Recorded Sex Assigned at Not on file Legal Sex Female 11:48 AM CDT Gender Identity Not on file Sexual Orientation Not on file Last Filed Vital Signs Vital Sign Reading Time Taken Comments Blood Pressure 111/66 12/10/2020 1:29 PM CDT Pulse 72 12/10/2020 1:29 PM CDT Temperature 36.6 C (97.9 F) 12/10/2020 1:29 PM CDT Respiratory Rate 14 12/10/2020 1:29 PM CDT Oxygen Saturation 99% 12/10/2020 1: 29 PM CDT Inhaled Oxygen Concentration - - Weight 125.7 kg (277 lb 3.2 oz) 12/10/2020 1:29 PM CDT Height 171.5 cm (5' 7.5 ) 12/10/2020 1:29 PM CDT Body Mass Index 42.77 12/10/2020 1:29 PM CDT Plan of Treatment Health Maintenance Due Date Last Done Comments HIV SCREENING 2007 HEPATITIS C SCREENING 06/28/2010 DTAP/TDAP/TD VACCINES (1 - Tdap) 2011 HEPATITIS B VACCINE (1 of 3 - 19+ 3-dose series) 2011 COVID-19 VACCINE (1 - 2023-2 5 season) 2024 DEPRESSION SCREENING 09/07/2024 INFLUENZA VACCINE (Season Ended) 2025 ZOSTER VACCINE (1 of 2) 2042 HIB VACCINE Aged Out No longer eligi ble based on patient's age to complete this topic HPV VACCINE Aged Out No longer eligi ble based on patient's age to complete this topic MENINGOCOCCAL (Group B) VACC INE SHARED DECISION-MAKING Aged Out No longer eligibl e based on patient's age to complete this topic MENINGOCOCCAL GROUPS A/C/Y/W VACCINE Aged Out No longer eligible b ased on patient's age to complete this topic PNEUMOCOCCAL VACCINE Aged Out No long er eligible based on patient's age to complete this topic Goals Goal Patient Goal Type Associated Problems Recent Progress Patient-Stated? Author Medication Management General On track( 021 1:41 PM CDT) No Kailyn Mills, ARTURO Note: Expected end date: ongoing Interventions: Take all medications as prescribed Let your doctor know right away about any changes in your medications Make sure to request a refill of your medication at least one week prior to your last dose Insurance ANTH Advance Directives Documents on File Type Date Recorded Patient Technical Support Professional Expl anation Adv Directive/Living Will/POA 12/17/2016 Care Teams Wafer Cleaner Relationship Specialty Start Date End Date Darron Chilel MD PCP - General Family Medicine 12/10/20
--- OUTSIDE RECORDS SUMMARY | 2025-01-15 06:54 | XMS_ITS | Clinical Summary ---
Author Organization [facility] Address [address] [place] [address] Phone Care Team Providers Care Gmat Instructor Name Role Phone Diallo Mccall Primary Care Provider [phone] Medications ALPRAZOLAM ORAL Take by mouth. Active Encounters Date Type Department Care Team Description 01/03/2025 External Device Data [facility]CTION Provider, Abstract 12/06/2024 External Device Data [facility] Provider, Abstract 12/06/2024 External Device Data [facility] Provider, Abstract 12/06/2024 External Device Data [facility] Provider, Abstract 11/15/2024 External Device Data [facility] Provider, Abstract 11/15/2024 External Device Data [facility] Provider, Abstract 11/09/2024 External Device Data [facility] Provider, Abstract 11/08/2024 External Device Data [facility] Provider, Abstract 11/08/2024 External Device Data [facility] Provider, Abstract 11/04/2024 7:15 AM MIRROR INSTALLER - 11/04/2024 9:52 AM [facility] Emergency [facility] Emergency Department [address] [place] [address] Jesus Manjarrez DO Near syncope (Primary Dx); Chest pain, unspecified type Discharge Disposition: Home or Self Care 11/04/2024 Travel from Last 3 Months Social History Tobacco Use Types Packs/Day Years Used Date Smoking Tobacco: Every Day Cigarettes Smokeless Tobacco: Never Tobacco Cessation:Ready to Q uit: Not Asked Alcohol Use Standard Drinks/Week Comments Yes 0 (1 standard drink = 0.6 oz pur e alcohol) Feeling Safe Answer Date Recorded Are you in a relationship wi th someone who hurts you emotionally and/or physically? No 11/04/2024 Comments No Sex and Gender Information Value Date Recorded Sex Assigned at Not on file Legal Sex Female 2:11 AM MIRROR INSTALLER Gender Identity Not on file Sexual Orientation Not on file Last Filed Vital Signs Vital Sign Reading Time Taken Comments Blood Pressure 137/95 11/04/2024 7:36 AM MIRROR INSTALLER Pulse 64 11/04/2024 7:36 AM MIRROR INSTALLER Temperature 36.4 C (97.5 F) 11/04/2024 5:23 AM MIRROR INSTALLER Respiratory Rate 18 11/04/2024 5:23 AM MIRROR INSTALLER Oxygen Saturation 99% 11/04/2024 7:36 AM MIRROR INSTALLER Inhaled Oxygen Concentration - - Weight 125.6 kg (277 lb) 11/04/2024 2:29 AM MIRROR INSTALLER Height 170.2 cm (5' 7 ) 11/04/2024 2:29 AM MIRROR INSTALLER Body Mass Index 43.38 11/04/2024 2:29 AM MIRROR INSTALLER Plan of Treatment Health Maintenance Due Date Last Done Comments DTAP/TDAP/TD VACCINES (1 - Tdap) 2011 HEPATITIS B VACCINES (1 of 3 - 19+ 3-dose series) 2011 HPV/Cotest (21-29) 2013 CERVICAL CANCER SCREENING 2022 HPV/Cotest (30-65) 2022 PAP SMEAR 2022 INFLUENZA VACCINE (#1) 2024 HPV VACCINES Aged Out No longer eligi ble based on patient's age to complete this topic Procedures Procedure Name Priority Date/Time Associated Diagnosis Comments CTA CHEST + ABD/PEL W CONTRAST Stat 11/04/2024 8:[address] HEAD WO CONTRAST Stat 11/04/2024 8 :36 AM MIRROR INSTALLER POC , URINE Stat 11/04/2024 8:03 AM MIRROR INSTALLER TSH REFLEXIVE Stat 11/04/2024 7:35 AM MIRROR INSTALLER BRAIN NATRIURETIC PEPTIDE, BNP OR PROBNP Stat 11/04/2024 7:35 AM MIRROR INSTALLER PROLACTIN Stat 11/04/2024 7:35 AM MIRROR INSTALLER CK Stat 11/04/2024 7:35 AM MIRROR INSTALLER TROPONIN 2 HR, 5TH GEN Timed Study 11/04/2024 7:35 AM MIRROR INSTALLER XR CHEST PA AND LATERAL 2 VW Stat 11/04/2024 2:51 AM MIRROR INSTALLER EXTRA TUBE (BLUE) Stat 11/04/2024 2:3 6 AM MIRROR INSTALLER LIPASE Stat 11/04/2024 2:36 AM MIRROR INSTALLER EXTRA TUBE Stat 11/04/2024 2:36 AM MIRROR INSTALLER COMPREHENSIVE METABOLIC PANEL Stat 11/04/2024 2:36 AM MIRROR INSTALLER CBC WITH DIFFERENTIAL Stat 11/04/2024 2:36 AM MIRROR INSTALLER TROPONIN BASELINE, 5TH GEN Stat 11/04/2024 2:36 AM MIRROR INSTALLER EKG 12-LEAD Stat 11/04/2024 2:26 AM MIRROR INSTALLER from Last 3 Months Results * CTA CHEST + ABD/PEL W CONTRAST (11/04/2024 8:36 AM MIRROR INSTALLER) Anatomical Region Laterality Modality Chest, Abdomen, Pelvis Computed Tomography 11/04/2024 8:37 AM MIRROR INSTALLER Impressions 11/04/2024 8:48 AM MIRROR INSTALLER IMPRESSION: No acute abnormality in the chest, abdomen, or pelvis. The examination was performed with the adjustment of mA according to the patient size and/or the use of Iterative Reconstruction Technique. DICTATION LOCATION: Location 4 Narrative 11/04/2024 8:[address] CHEST, ABDOMEN AND PELVIS WITH IV CONTRAST DATE: 11/04/2024 8:36 AM HISTORY: multiple near-syncope episode last night, left chest pain, epigastric pain, radiation LUE pain. See Reason for Exam COMPARISON: None TECHNIQUE: Computed tomography axial images of the chest, abdomen, and pelvis were acquired following the administration of intravenous contrast. Maximal intensity projection (MIP) images were obtained. CONTRAST: IOPAMIDOL 61 % INTRAVENOUS SOLUTION (MULTI-DOSE BULK PACK) Given:100 mL FINDINGS: Chest: Vascular: No acute abnormality. No pulmonary embolism. Mediastinum: Heart is normal in size. Lymph Nodes: No thoracic lymphadenopathy. Lungs: Lungs are clear. No pleural effusion. No pneumothorax. Abdomen/Pelvis: Vascular: No acute abnormality. Liver: Normal size and contour. Gallbladder: No gallbladder wall thickening. No gallstones. No biliary ductal dilatation. Spleen: Normal in size. Pancreas: Normal Adrenal glands: Normal. Kidneys: No hydronephrosis. Gastrointestinal: No bowel wall thickening or bowel obstruction. Normal appendix. Bladder: Normal. Bones/Soft tissues: No acute fracture or dislocation. Lumbar spondylosis with disc space height loss and sclerotic degenerative endplate changes at L5-S1. Procedure Note Stephanie NUNEZ, Tal Guthrie MD - 11/04/2024 CT CHEST, ABDOMEN AND PELVIS WITH IV CONTRAST DATE: 11/04/2024 8:36 AM HISTORY: multiple near-syncope episode last night, left chest pain, epigastric pain, radiation LUE pain. See Reason for Exam COMPARISON: None TECHNIQUE: Computed tomography axial images of the chest, abdomen, and pelvis were acquired following the administration of intravenous contrast. Maximal intensity projection (MIP) images were obtained. CONTRAST: IOPAMIDOL 61 % INTRAVENOUS SOLUTION (MULTI-DOSE BULK PACK) Given:100 mL FINDINGS: Chest: Vascular: No acute abnormality. No pulmonary embolism. Mediastinum: Heart is normal in size. Lymph Nodes: No thoracic lymphadenopathy. Lungs: Lungs are clear. No pleural effusion. No pneumothorax. Abdomen/Pelvis: Vascular: No acute abnormality. Liver: Normal size and contour. Gallbladder: No gallbladder wall thickening. No gallstones. No biliary ductal dilatation. Spleen: Normal in size. Pancreas: Normal Adrenal glands: Normal. Kidneys: No hydronephrosis. Gastrointestinal: No bowel wall thickening or bowel obstruction. Normal appendix. Bladder: Normal. Bones/Soft tissues: No acute fracture or dislocation. Lumbar spondylosis with disc space height loss and sclerotic degenerative endplate changes at L5-S1. IMPRESSION: No acute abnormality in the chest, abdomen, or pelvis. The examination was performed with the adjustment of mA according to the patient size and/or the use of Iterative Reconstruction Technique. DICTATION LOCATION: Location [address] ORDERABLES Final Result * CT HEAD WO CONTRAST (11/04/2024 8:36 AM MIRROR INSTALLER) Anatomical Region Laterality Modality Head Computed Tomogra phy 11/04/2024 8:36 AM MIRROR INSTALLER Impressions 11/04/2024 8:42 AM MIRROR INSTALLER IMPRESSION: 1. No acute intracranial process. DICTATION LOCATION: [address] 11/04/2024 8:42 AM MIRROR INSTALLER EXAMINATION: CT HEAD WO CONTRAST HISTORY: multiple near-syncope episode last night, left chest pain, epigastric pain, radiation LUE pain. See Reason for Exam TECHNIQUE: CT of the head was performed without contrast according to standard protocol. The examination was performed with the adjustment of mA according to the patient size and/or the use of Iterative Reconstruction Technique. FINDINGS: No prior study is available for comparison at the time of this dictation. No acute intra- or extra-axial fluid collections are identified. The ventricles are of normal size, shape, and morphology. The basilar cisterns are patent. No mass effect or midline shift is seen. The pablo-white matter differentiation is normal. Visible portions of the orbits, paranasal sinuses, and mastoids appear normal. No acute fracture is identified. Procedure Note Raúl Ruiz MD - 11/04/2024 EXAMINATION: CT HEAD WO CONTRAST HISTORY: multiple near-syncope episode last night, left chest pain, epigastric pain, radiation LUE pain. See Reason for Exam TECHNIQUE: CT of the head was performed without contrast according to standard protocol. The examination was performed with the adjustment of mA according to the patient size and/or the use of Iterative Reconstruction Technique. FINDINGS: No prior study is available for comparison at the time of this dictation. No acute intra- or extra-axial fluid collections are identified. The ventricles are of normal size, shape, and morphology. The basilar cisterns are patent. No mass effect or midline shift is seen. The pablo-white matter differentiation is normal. Visible portions of the orbits, paranasal sinuses, and mastoids appear normal. No acute fracture is identified. IMPRESSION: 1. No acute intracranial process. DICTATION LOCATION: Location [address] [place] [address] ORDERABLES Final Result * POC , URINE (11/04/2024 8:03 AM MIRROR INSTALLER) [facility] HCG QUAL URINE Negative Negative 11/04/2024 8:03 AM [facility] Urine 11/04/2024 8:03 AM MIRROR INSTALLER 11/04/2024 8:10 AM MIRROR INSTALLER [facility] - 11/04/2024 8:03 AM MIRROR INSTALLER Positive : Result is greater than or equal to 25 mIU/mL Negative: Result is less than 25 mIU/mL Invalid: Result is borderline or indeterminate,send to lab for serum test methodology. Jesus Manjarrez DO POINT OF CARE TESTING Final Resu lt Performing Organization Address [facility]/ZIP Co de Phone Number [facility] CLDC# [id number] [address] [place] [address] * TROPONIN 2 HR, 5TH GEN (11/04/2024 7:35 AM MIRROR INSTALLER) [facility] TROPONIN T, 2 HR 5TH GEN <6 <=10 ng/L 11/04/2024 8:31 AM [facility] Blood Venipuncture / Unknown 11/04/2024 7:35 AM MIRROR INSTALLER 11/04/2024 7:38 AM MIRROR INSTALLER [facility] - 11/04/2024 8:31 AM MIRROR INSTALLER Troponin Undetectable Delay in collection of timed specimen beyond recommended collection interval. Results must be interpreted in clinical context. Unable to calculate delta. Jesus Manjarrez DO CHEMISTRY ORDERABLES Final Resul t Performing Organization Address [facility]/ZIP Co de Phone Number [facility] CLIA# [id number] [address] [place] [address] * TSH REFLEXIVE (11/04/2024 7:35 AM MIRROR INSTALLER) [facility] TSH 3.57 0.27 - 4.20 uIU/mL 11/04/2024 8:31 AM [facility] Blood Venipuncture / Unknown 11/04/2024 7:35 AM MIRROR INSTALLER 11/04/2024 7:38 AM MIRROR INSTALLER Jesus Loki DO CHEMISTRY ORDERABLES Final Resul t Performing Organization Address City/[facility]/ZIP Co de Phone Number [facility]# [id number] [address] [place] [address] * PROLACTIN (11/04/2024 7:35 AM MIRROR INSTALLER) PROLACTIN 22.5 4.8 - 23.3 ng/mL 11/04/2024 8:31 AM MIRROR INSTALLER [facility] Blood Venipuncture / Unknown 11/04/2024 7:35 AM MIRROR INSTALLER 11/04/2024 7:38 AM MIRROR INSTALLER Jesus Manjarrez DO CHEMISTRY ORDERABLES Final Resul t Performing Organization Address [facility] Co de Phone Number [facility]# [id number] [address] [place] [address] * BRAIN NATRIURETIC PEPTIDE, BNP OR PROBNP (11/04/2024 7:35 AM MIRROR INSTALLER) PROBNP, N TERMINAL <36 <124 pg/mL 2024 8:31 AM MIRROR INSTALLER [facility] Comment: INTERPRETIVE COMMENT based on diagnosis: Diagnostic NT pro-BNP cutoffs for Heart Failure in the absence of renal failure is suggested for the following ranges <75 years: <125 pg/mL >=75 years: <450 pg/mL Exclusionary rule out cut-point for Acute Decompensated Heart Failure(ADHF) All ages: <300 pg/mL Diagnostic NT pro-BNP cutoffs for Acute Decompensated Heart Failure(ADHF) in the absence of renal failure is suggested for the following ages <50 years: > 450 pg/mL 50-75 years: > 900 pg/mL >75 years: >1800 pg/mL Blood Venipuncture / Unknown 11/04/2024 7:35 AM MIRROR INSTALLER 11/04/2024 7:38 AM MIRROR INSTALLER us Jesus Loki DO CHEMISTRY ORDERABLES Final Resul t [facility] YAS# [id number] [address] [place] [address] * CK (11/04/2024 7:35 AM MIRROR INSTALLER) CK 54 20 - 180 U/L 11/04/2024 8:31 AM MIRROR INSTALLER [facility] Blood Venipuncture / Unknown 11/04/2024 7:35 AM MIRROR INSTALLER 11/04/2024 7:38 AM MIRROR INSTALLER Jesus Loki DO CHEMISTRY ORDERABLES Final Resul t Performing Organization Address [facility] Co de Phone Number [facility] YAS# [id number] [address] [place] [address] * XR CHEST PA AND LATERAL 2 VW (11/04/2024 2:51 AM MIRROR INSTALLER) Anatomical Region Laterality Modality Chest Computed Radiogr aphy 11/04/2024 2:51 AM MIRROR INSTALLER Impressions 11/04/2024 8:04 AM MIRROR INSTALLER IMPRESSION: Mild bilateral interstitial prominence in the mid and lower lungs. This may represent mild interstitial edema or infiltrate. DICTATION LOCATION: Location 1 - [facility] Narrative 11/04/2024 8:04 AM MIRROR INSTALLER CHEST PA AND LATERAL DATE: 11/04/2024 2:51 AM HISTORY: Chest Pain. See Reason for Exam COMPARISON: None. FINDINGS: PA and lateral views of the chest demonstrate a limited inspiration. The heart is normal in size. Pulmonary vasculature is not congested. Mild interstitial prominence is noted within the mid and lower lungs bilaterally. This may represent mild interstitial edema or infiltrate. No effusions or pneumothoraces are evident. INCIDENTAL FINDINGS: None. Procedure Note Mary Vivar MD - 11/04/2024 CHEST PA AND LATERAL DATE: 11/04/2024 2:51 AM HISTORY: Chest Pain. See Reason for Exam COMPARISON: None. FINDINGS: PA and lateral views of the chest demonstrate a limited inspiration. The heart is normal in size. Pulmonary vasculature is not congested. Mild interstitial prominence is noted within the mid and lower lungs bilaterally. This may represent mild interstitial edema or infiltrate. No effusions or pneumothoraces are evident. INCIDENTAL FINDINGS: None. IMPRESSION: Mild bilateral interstitial prominence in the mid and lower lungs. This may represent mild interstitial edema or infiltrate. DICTATION LOCATION: Location 1 - [facility] [employer] DO DIAGNOSTIC IMAGING ORDERABLES Fi nal Result * EXTRA TUBE (BLUE) (11/04/2024 2:36 AM MIRROR INSTALLER) Blood Venipuncture / Unknown 11/04/2024 2:36 AM MIRROR INSTALLER 11/04/2024 2:46 AM MIRROR INSTALLER [employer] DO HEMATOLOGY ORDERABLES Final Resu lt Performing Organization Address [facility] Co de Phone Number [facility] CLIA# [id number] [address] [place] [address] * TROPONIN BASELINE, 5TH GEN (11/04/2024 2:36 AM MIRROR INSTALLER) TROPONIN T, BASELINE 5TH GEN <6 <=10 ng/L 11/04/2024 3:26 AM MIRROR INSTALLER [facility] Blood Venipuncture / Unknown 11/04/2024 2:36 AM MIRROR INSTALLER 11/04/2024 2:46 AM MIRROR INSTALLER Narrative [facility]ORAT[facility] - 11/04/2024 3:26 AM MIRROR INSTALLER Troponin Undetectable [employer] DO CHEMISTRY ORDERABLES Final Resul t Performing Organization Address [facility] Co de Phone Number [facility] CLIA# [id number] [address] [place] [address] * (ABNORMAL) CBC WITH DIFFERENTIAL (11/04/2024 2:36 AM MIRROR INSTALLER) [facility] WBC 10.7(H) 4.0 - 9.8 K/uL 11/04/2024 2:52 AM MIRROR INSTALLER [employer] [facility] RBC 4.94(H) 3.90 - 4.90 M/uL 11/04/2024 2:52 AM MIRROR INSTALLER [employer] [facility] HEMOGLOBIN 14.5 11.8 - 14.8 g/dL 11/04/2024 2:52 AM MIRROR INSTALLER [employer] [facility] HEMATOCRIT 41.1 35.5 - 44.0 % 11/04/2024 2:52 AM MIRROR INSTALLER [employer] [facility] MCV 83.2 82.0 - 99.0 fL 11/04/2024 2:52 AM MIRROR INSTALLER [employer] [facility] MCH 29.4 27.2 - 32.6 pg 11/04/2024 2:52 AM MIRROR INSTALLER [employer] [facility] MCHC 35.3 31.5 - 35.5 g/dL 11/04/2024 2:52 AM MIRROR INSTALLER [employer] [facility] RDW 12.1 11.5 - 14.5 % 11/04/2024 2:52 AM MIRROR INSTALLER [employer] [facility] RDW-STDEV 36.9(L) 37.1 - 48.7 fL 11/04/2024 2:52 AM [employer] [facility] PLATELETS 302 140 - 350 K/uL 11/04/2024 2:52 AM MIRROR INSTALLER [employer] [facility] MPV 9.9 9.3 - 12.4 fL 11/04/2024 2:52 AM MIRROR INSTALLER [employer] [facility] NEUTROPHILS 66 % 11/04/2024 2:52 AM MIRROR INSTALLER [employer] [facility] LYMPHOCYTES 26 % 11/04/2024 2:52 AM MIRROR INSTALLER [employer] [facility] MONOCYTES 6 % 11/04/2024 2:52 AM MIRROR INSTALLER [employer] [facility] EOSINOPHILS 2 % 11/04/2024 2:52 AM MIRROR INSTALLER [employer] [facility] BASOPHILS 1 % 11/04/2024 2:52 AM MIRROR INSTALLER [employer] [facility] IMMATURE GRANULOCYTES 1 % 11/04/2024 2:52 AM MIRROR INSTALLER [employer] [facility] Comment:IG (Immature Granulo cyte) count includes Metamyelocytes, Myelocytes, and Promyelocytes NEUTROPHIL ABSOLUTE 7.03(H) 1.90 - 7.00 K/uL 11/04/2024 2:52 AM [facility] LYMPHOCYTE ABSOLUTE 2.73 0.70 - 4.50 K/uL 11/04/2024 2:52 AM [facility] MONOCYTE ABSOLUTE 0.62 0.10 - 1.30 K/uL 11/04/2024 2:52 AM [facility] EOSINOPHIL ABSOLUTE 0.21 0.00 - 0.70 K/uL 11/04/2024 2:52 AM [facility] BASOPHILS ABSOLUTE 0.06 0.00 - 0.20 K/uL 11/04/2024 2:52 AM [facility] IMMATURE GRANULOCYTES ABSOLUTE 0.05(H) 0.00 - 0.03 K/uL 11/04/2024 2:52 AM [facility] Blood Venipuncture / Unknown 11/04/2024 2:36 AM MIRROR INSTALLER 11/04/2024 2:46 AM MIRROR INSTALLER Jesus Manjarrez DO HEMATOLOGY ORDERABLES Final Resu lt [facility] CLIA# [id number] [address] [place] [address] * LIPASE (11/04/2024 2:36 AM MIRROR INSTALLER) LIPASE 39 13 - 60 U/L 11/04/2024 3:26 AM [facility] Blood Venipuncture / Unknown 11/04/2024 2:36 AM MIRROR INSTALLER 11/04/2024 2:46 AM MIRROR INSTALLER Jesus Manjarrez DO CHEMISTRY ORDERABLES Final Resul t [facility] CLIA# [id number] [address] [place] [address] * (ABNORMAL) COMPREHENSIVE METABOLIC PANEL (11/04/2024 2:36 AM MIRROR INSTALLER) SODIUM 136 136 - 145 mmol/L 11/04/2024 3:26 AM MIRROR INSTALLER [employer] [facility] POTASSIUM 3.3(L) 3.5 - 5.0 mmol/L 11/04/2024 3:26 AM [facility] CHLORIDE 105 98 - 107 mmol/L 11/04/2024 3:26 AM [facility] CO2 17(L) 22 - 29 mmol/L 11/04/2024 3:26 AM [facility] CALCIUM 9.8 8.6 - 10.2 mg/dL 11/04/2024 3:26 AM [facility] BUN 11 6 - 20 mg/dL 11/04/2024 3:26 AM [facility] CREATININE 0.76 0.51 - 0.95 mg/dL 11/04/2024 3:26 AM [facility] GLUCOSE 119(H) 74 - 99 mg/dL 11/04/2024 3:26 AM [facility] - [facility] TOTAL PROTEIN 7.3 6.7 - 8.6 g/dL 11/04/2024 3:26 AM [facility] ALBUMIN 4.4 3.5 - 5.2 g/dL 11/04/2024 3:26 AM [facility] BILIRUBIN TOTAL 0.2(L) 0.3 - 1.2 mg/dL 11/04/2024 3:26 AM [facility] ALKALINE PHOSPHATASE 66 35 - 104 U/L 11/04/2024 3:26 AM [facility] AST 17 <33 U/L 11/04/2024 3:26 AM [facility] ALT 21 <34 U/L 11/04/2024 3:26 AM [facility] GFR >60 >=60 mL/min/1.7 3 sq meter 11/04/2024 3:26 AM [facility] Comment:eGFR calculated with 2020 CKD-EPI equation. Vegetarian diet, extremely high or low muscle mass, and may affect results. Cystatin C with Glomerular Filtration Rate is a suitable alternative for these patients. ANION GAP 14 8 - 16 mmol/L 11/04/2024 3:26 AM MIRROR INSTALLER [facility] Blood Venipuncture / Unknown 11/04/2024 2:36 AM MIRROR INSTALLER 11/04/2024 2:46 AM MIRROR INSTALLER Narrative [facility] LABORAT[facility] - 11/04/2024 3:26 AM MIRROR INSTALLER Samples containing indocyanine green cause interferences on Total and/or Direct Bilirubin and must not be measured. Jesus Manjarrez DO CHEMISTRY ORDERABLES Final Resul t [id number] [place] [address] * EKG 12-LEAD (11/04/2024 2:26 AM MIRROR INSTALLER) 11/04/2024 2:26 AM MIRROR INSTALLER [facility] INTERFACE SYSTEM - 11/04/2024 5:[address] [place] [address] Test Date: 2024-11-04 Pat Name: LIAM VIVAR Department: 38 Room: Gender: Female Iron Launder Operator: [id number] : 1990 Requested By: Order Number: [id number] Reading MD: Alexis Quintana Measurements Intervals [place] Rate: 79 P: 51 IA: 153 QRS: 16 QRSD: 97 T: 35 QT: 388 QTc: 445 Interpretive Statements Sinus rhythm Low voltage, precordial leads Electronically Signed On 11-04-2024 5:56:54 MIRROR INSTALLER by Alexis Quintana Procedure Note Alexis Quintana MD - 11/04/2024 [facility] [address] [place] [address] Test Date: 2024-11-04 Pat Name: LIAM VIVAR Department: 38 Room: Gender: Female Iron Launder Operator: [id number] : 1990 Requested By: Order Number: [id number] Reading MD: Alexis Quintana Measurements Intervals [place] Rate: 79 P: 51 IA: 153 QRS: 16 QRSD: 97 T: 35 QT: 388 QTc: 445 Interpretive Statements Sinus rhythm Low voltage, precordial leads Electronically Signed On 11-04-2024 5:56:54 MIRROR INSTALLER by Alexis Quintana Jesus Manjarrez DO ECG ORDERABLES Final Result INTERFACE SYSTEM Refer to clinic/hospital department from Last 3 Months Care Teams Gmat Instructor Relationship Specialty Start Date End Date Diallo Mccall DO [address] [id number] PCP - General Family Practice 11/04/24
--- OUTSIDE RECORDS SUMMARY | 2025-01-15 06:54 | XMS_ITS | Encounter Summary ---
Author Organization [facility] Address [address] [facility] [place] [address] Care Team Providers Care Spike Machine Operator Name Role Phone Darron Chilel MD Primary Care Provider [phone] Encounter Details Date Type Department Care Team (Late st Contact Info) Description 01/10/2021 Lab Requisition [facility] [address] [facility], [place] [id number] Jed Hauser MD [address] [address] Social History Tobacco Use Types Packs/Day Years [...] on file Sexual Orientation Not on file documented as of this encounter Plan of Treatment Not on file documented as of this encounter Goals Goal Patient Goal Type Associated Problems Recent Progress Patient-Stated? Author Medication Management General On track( 021 1:41 PM CDT) No Kailyn Mills, RN Note: Expected end date: ongoing Interventions: Take all medications as prescribed Let your doctor know right away about any changes in your medications Make sure to request a refill of your medication at least one week prior to your last dose documented as of this encounter Procedures Procedure Name Priority Date/Time Associated Diagnosis Comments DERMATOPATHOLOGY Routine 01/09/2021 3:33 AM CDT documented in this encounter Results * DERMATOPATHOLOGY (01/09/2021 3:33 AM CDT) Case Report Dermatopathology Report Case: [id number] Authorizing Provider: Jed Hauser MD Collected: 01/09/2021 03:33 AM Ordering Location: [facility] DermPath Lab Received: 01/10/2021 07:20 AM Pathologist: Grisel Mckinley MD Specimen: Skin, left thigh 1:25 PM CDT DERMATOPATHOLOGY LABORATORY Final Diagnosis Specimen A. SKIN, left thigh: TRICHILEMMAL (PILAR) CYST WITH CALCIFICATION (L72.12) PRESENT AT MARGIN 1:25 PM CDT DERMATOPATHOLOGY LABORATORY Clinical History Cyst. Check margins. 1:25 PM CDT DERMATOPATHOLOGY LABORATORY Gross Description Specimen A: Received is one formalin filled container labeled with the patient's name and designated left thigh. The specimen consists of 2 pieces of excision measuring [id number] and [id number]. The specimen is serially sectioned and a clearance representative section is submitted in cassette 1. Jar 1. 1:25 PM CDT DERMATOPATHOLOGY LABORATORY Microscopic Description Specimen A. SKIN, left thigh: Sections show a cyst that is lined by stratified squamous epithelium that shows trichilemmal keratinization (no granular layer). There is homogeneous pink keratin and aggregates of homogenous amorphous basophilic material consistent with calcium within the cyst. This lesion is present at the margin of the specimen. 1:25 PM CDT DERMATOPATHOLOGY LABORATORY Disclaimer An external and internal positive and negative controls are appropriate for the histochemical, immunohistochemical and immunofluorescence stain(s) in this case (if any), except where stated explicitly. The performance characteristics of the stain(s) cited in this report were developed and its performance characteristic determined by the Dermatopathology Laboratory at [facility], directed by Dr. Reji Jaime. These tests need not be, and therefore are not, approved by the [place] Food and Drug Administration. The tests are used for clinical purposes. Billing Codes Specimen Charges Stain Charges 95251 1 1 1:25 PM CDT DERMATOPATHOLOGY LABORATORY Embedded Images 1 1:25 PM CDT DERMATOPATHOLOGY LABORATORY Pathology/Cytolo gy TISSUE SPECIMEN FROM SKIN / Unknown 01/09/2021 3:33 AM CDT 01/10/2021 7:20 AM CDT Jed Hauser MD LAB - PATHOLOGY/CYTOLOGY ORDER NORBERTO Final Result DERMATOPATHOLOGY LABORATORY [facility] - Department of Dermatology Specialized Medicine [address] [place] [address], [address] [phone] documented in this encounter Visit Diagnoses Not on filedocumented in this encounter Care Teams Spike Machine Operator Relationship Specialty Start Date End Date Darron Chilel MD PCP - General Family Medicine 12/10/20 documented as of this encounter
--- OUTSIDE RECORDS SUMMARY | 2025-01-15 06:54 | XMS_ITS | Encounter Summary ---
Author Organization [facility] Address [facility] [place] [address] Care Team Providers Care Gas Examiner Name Role Phone Glo Oh MD Primary Care Pro vider Encounter Details Date Type Department Care Team (Late st Contact Info) Description 11/21/2017 Abstract [facility] CONVERSION [address] [place] [address] , Generic Conversion, Social History Tobacco Use Types Packs/Day Years Used Date Smoking Tobacco: Never Assessed Comments Unknown Sex and Gender Information Value Date Recorded Sex Assigned at Not on file Legal Sex Female 9:38 PM STORES LABORER Gender Identity Not on file Sexual Orientation Not on file documented as of this encounter Plan of Treatment Not on file documented as of this encounter Visit Diagnoses Not on filedocumented in this encounter Care Teams Gas Examiner Relationship Specialty Start Date End Date Glo Oh MD [address] [place] [address] PCP - General FAMILY PRACTICE 04/20/19 documented as of this encounter
--- OUTSIDE RECORDS SUMMARY | 2025-01-15 06:54 | XMS_ITS | Continuity of Care Document ---
Author Organization [facility] Address [address] [place] [address] [place] [address] Phone Care Team Providers Care Fitness Specialist Name Role Phone Darron Chilel MD Unavailable [...] Diagnoses Date Provider Providers Copied on Encounter [facility], [address], [place], [place], [address], tel:[phone] [facility] No Information 2 Getachew Rob. [address], [place], [place], [address] , [place]. tel:[phone] OFFICE/OUTPA TIENT VISIT, [facility], [address], [place], [place], [address], [place] tel:[phone] [facility] anxiety1 (chief complaint) HLP (chief complaint) GERD1 (chief complaint) HyperlipidemiaGener alized Anxiety DisorderGERD w/o esophagitisIrritabl e bowel syndrome NOS 1 Getachew Rob. [address], [place], [place], [address] , [place]. tel:[phone] OFFICE/OUTPA TIENT VISIT, [facility], [address], [place], [place], [address], [place] tel:[phone] [facility] nausea1 (chief complaint) anxiety1 (chief complaint) HLP (chief complaint) weight loss1 (chief complaint) HyperlipidemiaAbnor mal weight lossGeneralized Anxiety DisorderNausea 1 Getachew Rob. [address], [place], [place], [address] , [place]. [phone] OFFICE/OUTPA TIENT VISIT, EST [facility], [address], [place], [place], [address], [place] tel:[phone] [facility] HLP (chief complaint) iron (chief complaint) anxiety1 (chief complaint) Generalized Anxiety DisorderHyperlipide miaIron deficiency Dec-0 - 0 Getachew Rob. [address], [place], [place], [address] , [place]. tel:[phone] OFFICE/OUTPA TIENT VISIT, [facility], [address], [place], [place], [address], [place] tel:[phone] [facility] GERD1 (chief complaint) HLP (chief complaint) anxiety1 (chief complaint) low iron (chief complaint) HyperlipidemiaGERD w/o esophagitisIron deficiencyGeneraliz ed Anxiety Disorder Sep-3 0-202 0 Getachew Rob. [address], [place], [place], [address] , [place]. [phone] OFFICE/OUTPA TIENT VISIT, [facility], [address], [place], [place], [address], [place] tel:[phone] [facility] HLP (chief complaint) anxiety1 (chief complaint) abd pain1 (chief complaint) iron1 (chief complaint) HyperlipidemiaGERD w/o esophagitisGenerali zed Anxiety DisorderIron deficiency Apr- 0 Getachew Rob. [address], [place], [place], [address] , [place]. [phone] OFFICE/OUTPA TIENT VISIT, [facility], [address], [place], [place], [address], [place] tel:[phone] [facility] GERD1 (chief complaint) HLP (chief complaint) anxiety1 (chief complaint) GERD w/o esophagitisIrritabl e bowel syndrome NOSHyperlipidemiaGe neralized Anxiety DisorderVitamin D deficiency, unspecified 0 Getachew Rob. [address], [address], [place], [place], [address] , [place]. tel:[phone] OFFICE/OUTPA TIENT VISIT, [facility], [address], [place], [place], [address], [place] tel:[phone] [facility] abd pain1 (chief complaint) anxiety1 (chief complaint) WBC (chief complaint) ColitisGeneralized Anxiety DisorderHematuriaGE RD w/o esophagitis Jayme-0 - 0 Getachew Rob. [address], [place], [place], [address] , [place]. tel:[phone] OFFICE/OUTPA TIENT VISIT, [facility], [address], [place], [place], [address], [place] tel:[phone] [facility] abd pain1 (chief complaint) ColitisLeukocytosis HematuriaFatty liverHyponatremiaSe condary polycythemia 0 Getachew Lawrence [address], [address], [place], [place], [address] , [place]. [phone] OFFICE/OUTPA TIENT VISIT, [facility], [address], [place], [place], [address], [place] tel:[phone] [facility] anxiety1 (chief complaint) Generalized Anxiety Disorder 0 Getachew Lawrence [address], [address], [place], [place], [address] , [place]. [phone] OFFICE/OUTPA TIENT VISIT, [facility], [address], [place], [place], [address], [place] tel:[phone] [facility] Anxiety1 (chief complaint) obesity1 (chief complaint) Generalized Anxiety DisorderObesity 0 Getachew Lawrence [address], [address], [place], [place], [address] , [place]. [phone] OFFICE/OUTPA TIENT VISIT, [facility], [address], [place], [place], [address], [place] tel:[phone] [facility] anxiety1 (chief complaint) anxiety1 (chief complaint) Generalized Anxiety DisorderAbnormal weight gain 0 Getachew Lawrence [address], [place], [place], [address] , [place]. tel:[phone] Referring Provider: Darron Chilel, [address], [place], [place], [address]. tel:[phone] PREV VISIT, NEW, AGE 18-39 [facility], [address], [place], [place], [address], [place] tel:[phone] [facility] Physical (chief complaint) Generalized Anxiety DisorderEncounter for general adult medical exam w abnormal findingsBody mass index (BMI) 45.0-49.9, adultVitamin D deficiency, unspecified 9 Getachew Rob. [address], [facility] [address], [place], [place], [address] , [place]. tel:[phone] Referring Provider: Rossi Hale [facility] [address], [place], [place], [address]. tel:[phone] Family History Family Member Type Diagnosis Age [...] Status Goal Tobacco cessation counseling completed Goal Tobacco cessation counseling completed Goal Special diet education compl eted Referral Ordered: Michele Kiran -[facility] : Internal Medicine : Gastroenterology (related to Irritable bowel syndrome NOS) ordered Referral Referred To: Michele Kiran [address] [facility]
[address], [phone] Ordered: Referrals: [facility] Phys[facility] : Internal Medicine : Gastroenterology. Michele Kiran. Evaluate and treat ordered Referral Ordered: UPPER GI W/ KUB ordered Referral Ordered: Gastroenterology (related to Colitis) ordered Referral Ordered: Referrals: Gastroenterology. Evaluate and treat ordered History Of Present Illness Encounter Date Complaint History Of Prese nt Illness GERD1 Pt has chronic G ERD with IBS symptoms Pt just saw new GI at [facility] and she had some lab done and she supposes to do another EGD and colonoscopy since new G unable to get previous results from [facility]. Pt takes protonix which helps with GERD HLP Pt has HLP Pt ta kes crestor Pt still has not done lab yet Pt denies any myalgia anxiety1 Pt has chronic a nxiety and depression with mood swings Pt takes celexa, lamictal and xanax PRn and doing ok Pt denies any suicidal or homicidal thought Pt denies any crying spells nausea1 Pt has chronic n ausea with [...] spells HLP Pt has HLP Pt ta ascencion crestor .Pt still has not done lab yet. pt denies any myalgia weight loss1 Pt has been losi ng weight .Pt is trying to lose weight but she also has frequent nausea, vomiting, nonbloody diarrhea. iron Pt has low iron and ferritin Pt had negative EGD and colonoscopy pt denies any blood in urine Pt had uterine ablation but she is still spotting per pt HLP Pt has HLP Pt ta ascencion crestor Pt denies any myalgia anxiety1 Pt has chronic a nxiety and depression Pt takes celexa, lamictal and xanax PRn and doing ok pT denies any suicidal or homicidal thought Pt denies any crying spells low iron Pt had uterine a blation done two months ago Pt denies any menstrual bleeding or any other blood loss anxiety1 Pt has anxiety a nd depression Pt takes celexa, lamictal and xanax PRN and doing ok. Pt denies any suicidal or homicidal thought .PT denies any crying spells HLP Pt has HLP. Pt i s on crestor. Pt denies any myalgia GERD1 Pt has chronic G ERD. Pt [...] benign EGD and colonoscopy recently per patient. iron1 Pt has borderlin e low iron sat. Pt did have heavy period, Pt just had ablation done. abd pain1 Pt states that s he is doing better regarding her abdominal pain. Her GERD is improving with protonix Pt has not done gastric empty and HIDA scan yet . anxiety1 Pt has anxiety a nd depression and mood swings. Pt doing ok with celexa, lamictal and xanax PRn Pt denies any suicidal or homicidal thought, Pt denies any crying spells HLP Pt tolerating cr estor ok. Pt denies any myalgia. Pt is working on diet HLP Pt has HLP .Pt i s not on any diet Pt is overweight anxiety1 Patient has director acute yu anxiety and depression. Patient denies any suicidal homicidal thoughts. Patient denies any crying spells. Patient takes celexa and Xanax and lamictal and doing okay. Patient noticed more motivation. Patient denies any hopelessness. GERD1 Pt had EGD done which showed [...] any syncope pt denies any chest pain WBC Pt has leukocyto sis, , polycythemia and also high glucose and hematuria Pt denies any UTI symptoms anxiety1 Pt has anxiety a nd depression and mild bipolar. Pt takes celexa and lamictal and xanax PRn and doing ok Pt denies any suicidal or homicidal thought Pt denies any crying spells abd pain1 Pt has been havi ng [...] has chronic mixture of constipation and diarrhea abd pain1 Pt woke up 6 day [...] week Pt has not done lab yet obesity1 Pt is obese ,Pt has hard time losing weight. Anxiety1 Pt has anxiety a nd depression and bipolar pt takes celexa, lamictal and xanax PRn and doing ok Pt denies any suicidal or homicidal thought Pt denies any crying spells. anxiety1 Pt has been gain ing weight Pt is not very active Pt is not on any diet Pt has not done lab yet anxiety1 Pt has chronic a nxiety and depression and mood swings Pt states that she tried to wean down on lamictal but she feels more mood swings since weaning off Pt states that she has not had lamictal for two weeks. Pt thinks that she should go back to lamictal. Pt states that xanax works well for her anxiety Pt wants refill. Physical Pt needs annual physical. Pt c/o [...]
--- OUTSIDE RECORDS SUMMARY | 2025-01-15 06:54 | XMS_ITS | Encounter Summary ---
Author Organization [facility] Address [address] [place] [address] Care Team Providers Care Fuel Efficient Automobile Designer Name Role Phone Darron Chilel MD Primary Care Provider [phone] Encounter Details Date Type Department Care Team (Late st Contact Info) Description 12/10/2020 Telephone [facility] - [address] [facility] [place] [address] Loan Mak Social History Tobacco Use Types Packs/Day Years [...] last dose documented as of this encounter Visit Diagnoses Not on filedocumented in this encounter Care Teams Fuel Efficient Automobile Designer Relationship Specialty Start Date End Date Darron Chilel MD PCP - General Family Medicine 12/10/20 documented as of this encounter
--- OUTSIDE RECORDS SUMMARY | 2025-01-15 06:54 | XMS_ITS | Encounter Summary ---
Author Organization [facility] Address [address] [facility] [place] [address] Care Team Providers Care Scanning Tech Name Role Phone Darron Chilel MD Primary Care Provider [phone] Encounter Details Date Type Department Care Team (Late st Contact Info) Description 11/15/2020 Lab Requisition [facility] [address] [facility] [place] [address] Jed Hauser MD [address] [facility] [address] Social History Tobacco Use Types Packs/Day Years Used Date Smoking Tobacco: Never Assessed Comments Unknown Sex and Gender Information Value Date Recorded Sex Assigned at Not on file Legal Sex Female 11:48 AM CDT Gender Identity Not on file Sexual Orientation Not on file documented as of this encounter Plan of Treatment Not on file documented as of this encounter Procedures Procedure Name Priority Date/Time Associated Diagnosis Comments DERMATOPATHOLOGY Routine 11/14/2020 3:33 AM SEWING MACHINE OPERATOR ZIPPER documented in this encounter Results * DERMATOPATHOLOGY (11/14/2020 3:33 AM SEWING MACHINE OPERATOR ZIPPER) Case Report Dermatopathology Report Case: [id number] Authorizing Provider: Jed Hauser MD Collected: 11/14/2020 03:33 AM [facility] Received: 11/15/2020 07:18 AM Pathologist: Grisel Mckinley MD Specimen: Skin, right post scalp 1:16 PM [facility] DERMATOPATHOLOGY LABORATORY Final Diagnosis Specimen A. SKIN, right post scalp: COMPOUND MELANOCYTIC NEVUS (D22.4) 1:16 PM [facility] DERMATOPATHOLOGY LABORATORY Clinical History Irritated nevus. Path# [id number]. 1:16 PM [facility] DERMATOPATHOLOGY LABORATORY Gross Description Specimen A: Received is one formalin filled container labeled with the patient's name and designated right post scalp. The specimen consists of 2 pieces of shave biopsy measuring [id number] and [id number]. Jar 0. 1:16 PM [facility] DERMATOPATHOLOGY LABORATORY Microscopic Description Specimen A. SKIN, right post scalp: There are nests of melanocytes at the dermal-epidermal junction and within the dermis. 1:16 PM [facility] DERMATOPATHOLOGY LABORATORY Disclaimer An external and internal positive and negative controls are appropriate for the histochemical, immunohistochemical and immunofluorescence stain(s) in this case (if any), except where stated explicitly. The performance characteristics of the stain(s) cited in this report were developed and its performance characteristic determined by the Dermatopathology Laboratory at [facility], directed by Dr. Reji Jaime. These tests need not be, and therefore are not, approved by the [place] Food and Drug Administration. The tests are used for clinical purposes. Billing Codes Specimen Charges Stain Charges 59926 1 1 1:16 PM [facility] DERMATOPATHOLOGY LABORATORY Embedded Images 1:16 PM [facility] DERMATOPATHOLOGY LABORATORY Pathology/Cytolo gy TISSUE SPECIMEN FROM SKIN / Unknown 11/14/2020 3:33 AM SEWING MACHINE OPERATOR ZIPPER 11/15/2020 7:18 AM SEWING MACHINE OPERATOR ZIPPER us Jed Hauser MD LAB - PATHOLOGY/CYTOLOGY ORDER NORBERTO Final Result DERMATOPATHOLOGY LABORATORY [facility] - Department of Dermatology [address], [address] [phone] documented in this encounter Visit Diagnoses Not on filedocumented in this encounter Care Teams Scanning Tech Relationship Specialty Start Date End Date Darron Chilel MD PCP - General Family Medicine 12/10/20 documented as of this encounter
[2025-01-15] MEDS: HYDROcodone/acetaminophen (*CRX) 5-325 MG TABLET 1 TAB PO (08:25)
[2025-01-15] MEDS: IBUPROFEN 400 MG TABLET PO (08:25)
[2025-01-15] MEDS: AMOXICILLIN/CLAVULANATE K 875-125 MG TAB 1 TABLET PO (08:25)
--- OUTSIDE RECORDS SUMMARY | 2025-01-15 08:25 | XMS_ITS | Clinical Summary ---
Author Organization [facility] Address [address] [place] [address] Care Team Providers Care Supervisor Housecleaner Name Role Phone Glo Oh MD Primary [...] on file Legal Sex Female 9:38 PM CAT SITTER Gender Identity Not on file Sexual Orientation [...] patient's age to complete this topic Insurance [facility] Care Teams Supervisor Housecleaner Relationship Specialty Start Date End Date Glo Oh MD [address] [place] [address] PCP - General FAMILY PRACTICE 04/20/19
--- OUTSIDE RECORDS SUMMARY | 2025-01-15 08:26 | XMS_ITS | Encounter Summary ---
Author Organization [facility] Address [address] [facility] [address] Care Team Providers Care Ichthyology Teacher Name Role Phone Darron Chilel MD Primary Care Provider [phone] Encounter Details Date Type Department Care Team (Late st Contact Info) Description 01/10/2021 Lab Requisition [facility] [address] [facility] [place] [address] Jed Hauser MD [address] [facility] [address] Social History Tobacco Use Types [...] AM CDT) Case Report Dermatopathology Report Case: [id number] Authorizing Provider: Jed Hauser MD Collected: 01/09/2021 03:33 AM Ordering Location: [facility] DermPath Lab Received: 01/10/2021 07:20 AM [...] consists of 2 pieces of excision measuring [id number] and [id number]. The specimen is serially sectioned and a labor union business representative section is submitted in cassette 1. [...] characteristic determined by the Dermatopathology Laboratory at [facility], directed by Dr. Reji Jaime. These tests need not be, and therefore are not, approved by the [place] Food and Drug Administration. The tests are used for clinical purposes. Billing Codes Specimen Charges Stain Charges 53630 1 1 1:25 PM CDT DERMATOPATHOLOGY LABORATORY Embedded Images 1 1:25 PM CDT DERMATOPATHOLOGY LABORATORY Pathology/Cytolo gy TISSUE SPECIMEN FROM SKIN / Unknown 01/09/2021 3:33 AM CDT 01/10/2021 7:20 AM CDT Jed Hauser MD LAB - PATHOLOGY/CYTOLOGY ORDER NORBERTO Final Result DERMATOPATHOLOGY LABORATORY [facility] - Department of Dermatology [facility] [address] [place] [address], [address] [phone] documented in this encounter Visit Diagnoses Not on filedocumented in this encounter Care Teams Ichthyology Teacher Relationship Specialty Start Date End Date Darron Chilel MD PCP - General Family Medicine 12/10/20 documented as of this encounter
--- OUTSIDE RECORDS SUMMARY | 2025-01-15 08:26 | XMS_ITS | Encounter Summary ---
Author Organization [facility] Address [address] [facility] [place] [address] Care Team Providers Care Microsoft Exchange Architect Name Role Phone Darron Chilel MD Primary Care Provider [phone] Encounter Details Date Type Department Care Team (Late st Contact Info) Description 11/15/2020 Lab Requisition [facility] [address] [facility] [place] [address] Jed Hauser MD [address] [place] [address] Social History Tobacco Use Types [...] Diagnosis Comments DERMATOPATHOLOGY Routine 11/14/2020 3:33 AM NURSE LEADER documented in this encounter Results * DERMATOPATHOLOGY (11/14/2020 3:33 AM NURSE LEADER) Case Report Dermatopathology Report Case: [id number] Authorizing Provider: Jed Hauser MD Collected: 11/14/2020 03:33 AM Ordering Location: [facility] Received: 11/15/2020 07:18 AM Pathologist: Grisel Mckinley MD Specimen: Skin, right post scalp 1:16 PM [facility] DERMATOPATHOLOGY LABORATORY Final Diagnosis Specimen A. SKIN, right post scalp: COMPOUND MELANOCYTIC NEVUS (D22.4) 1:16 PM [facility] DERMATOPATHOLOGY LABORATORY Clinical History Irritated nevus. Path# [id number]. 1:16 PM [facility] DERMATOPATHOLOGY LABORATORY Gross Description Specimen A: Received is one formalin filled container labeled with the patient's name and designated right post scalp. The specimen consists of 2 pieces of shave biopsy measuring [id number] and [id number]. Jar 0. 1:16 PM [facility] DERMATOPATHOLOGY LABORATORY Microscopic Description Specimen A. SKIN, right post scalp: There are nests of melanocytes at the dermal-epidermal junction and within the dermis. 1:16 PM [facility] DERMATOPATHOLOGY LABORATORY Disclaimer An external and internal positive and negative controls are appropriate for the histochemical, immunohistochemical and immunofluorescence stain(s) in this case (if any), except where stated explicitly. The performance characteristics of the stain(s) cited in this report were developed and its performance characteristic determined by the Dermatopathology Laboratory at [facility], directed by Dr. Reji Jaime. These tests need not be, and therefore are not, approved by the [place] Food and Drug Administration. The tests are used for clinical purposes. Billing Codes Specimen Charges Stain Charges 34226 1 1 1:16 PM [facility] DERMATOPATHOLOGY LABORATORY Embedded Images 1:16 PM [facility] DERMATOPATHOLOGY LABORATORY Pathology/Cytolo gy TISSUE SPECIMEN FROM SKIN / Unknown 11/14/2020 3:33 AM NURSE LEADER 11/15/2020 7:18 AM NURSE LEADER us Jed Hauser MD LAB - PATHOLOGY/CYTOLOGY ORDER NORBERTO Final Result DERMATOPATHOLOGY LABORATORY [facility] - Department of Dermatology [address], [address] [phone] documented in this encounter Visit Diagnoses Not on filedocumented in this encounter Care Teams Microsoft Exchange Architect Relationship Specialty Start Date End Date Darron Chilel MD PCP - General Family Medicine 12/10/20 documented as of this encounter
--- OUTSIDE RECORDS SUMMARY | 2025-01-15 08:26 | XMS_ITS | Clinical Summary ---
Author Organization [facility] Address [address] [place] [address] Phone Care Team Providers Care Accounts Payable Administrator Name Role Phone Diallo Mccall Primary Care Provider [phone] Medications ALPRAZOLAM ORAL Take by mouth. Active [...] STL ABSTRACTION Provider, Abstract 11/04/2024 7:15 AM HAT STEAMER - 11/04/2024 9:52 AM [facility] Emergency [facility] Emergency Department [address] [place] [address] Jesus Manjarrez DO Near syncope [...] on file Legal Sex Female 2:11 AM HAT STEAMER Gender Identity Not on file Sexual Orientation Not on file Last Filed Vital Signs Vital Sign Reading Time Taken Comments Blood Pressure 137/95 11/04/2024 7:36 AM HAT STEAMER Pulse 64 11/04/2024 7:36 AM HAT STEAMER Temperature 36.4 C (97.5 F) 11/04/2024 5:23 AM HAT STEAMER Respiratory Rate 18 11/04/2024 5:23 AM HAT STEAMER Oxygen Saturation 99% 11/04/2024 7:36 AM HAT STEAMER Inhaled Oxygen Concentration - - Weight 125.6 kg (277 lb) 11/04/2024 2:29 AM HAT STEAMER Height 170.2 cm (5' 7 ) 11/04/2024 2:29 AM HAT STEAMER Body Mass Index 43.38 11/04/2024 2:29 AM HAT STEAMER Plan of Treatment Health Maintenance Due Date [...] ABD/PEL W CONTRAST Stat 11/04/2024 8:[address] HEAD WO CONTRAST Stat 11/04/2024 8 :36 AM HAT STEAMER POC , URINE Stat 11/04/2024 8:03 AM HAT STEAMER TSH REFLEXIVE Stat 11/04/2024 7:35 AM HAT STEAMER BRAIN NATRIURETIC PEPTIDE, BNP OR PROBNP Stat 11/04/2024 7:35 AM HAT STEAMER PROLACTIN Stat 11/04/2024 7:35 AM HAT STEAMER CK Stat 11/04/2024 7:35 AM HAT STEAMER TROPONIN 2 HR, 5TH GEN Timed Study 11/04/2024 7:35 AM HAT STEAMER XR CHEST PA AND LATERAL 2 VW Stat 11/04/2024 2:51 AM HAT STEAMER EXTRA TUBE (BLUE) Stat 11/04/2024 2:3 6 AM HAT STEAMER LIPASE Stat 11/04/2024 2:36 AM HAT STEAMER EXTRA TUBE Stat 11/04/2024 2:36 AM HAT STEAMER COMPREHENSIVE METABOLIC PANEL Stat 11/04/2024 2:36 AM HAT STEAMER CBC WITH DIFFERENTIAL Stat 11/04/2024 2:36 AM HAT STEAMER TROPONIN BASELINE, 5TH GEN Stat 11/04/2024 2:36 AM HAT STEAMER EKG 12-LEAD Stat 11/04/2024 2:26 AM HAT STEAMER from Last 3 Months Results * CTA CHEST + ABD/PEL W CONTRAST (11/04/2024 8:36 AM HAT STEAMER) Anatomical Region Laterality Modality Chest, Abdomen, Pelvis Computed Tomography 11/04/2024 8:37 AM HAT STEAMER Impressions 11/04/2024 8:48 AM HAT STEAMER IMPRESSION: No acute abnormality in the chest, abdomen, or pelvis. The examination was performed with the adjustment of mA according to the patient size and/or the use of Iterative Reconstruction Technique. DICTATION LOCATION: Location 4 Narrative 11/04/2024 8:[address] CHEST, ABDOMEN AND PELVIS WITH IV [...] CT HEAD WO CONTRAST (11/04/2024 8:36 AM HAT STEAMER) Anatomical Region Laterality Modality Head Computed Tomogra phy 11/04/2024 8:36 AM HAT STEAMER Impressions 11/04/2024 8:42 AM HAT STEAMER IMPRESSION: 1. No acute intracranial process. DICTATION LOCATION: [address] 11/04/2024 8:42 AM HAT STEAMER EXAMINATION: CT HEAD WO CONTRAST HISTORY: multiple [...] No acute intracranial process. DICTATION LOCATION: Location [address] [place] [address] ORDERABLES Final Result * POC , URINE (11/04/2024 8:03 AM HAT STEAMER) [facility] [place] HCG QUAL URINE Negative Negative 11/04/2024 8:03 AM [facility] Urine 11/04/2024 8:03 AM HAT STEAMER 11/04/2024 8:10 AM HAT STEAMER [facility] - 11/04/2024 8:03 AM HAT STEAMER Positive : Result is greater than or equal to 25 mIU/mL Negative: Result is less than 25 mIU/mL Invalid: Result is borderline or indeterminate,send to lab for serum test methodology. Jesus Manjarrez DO POINT OF CARE TESTING Final Resu lt Performing Organization Address [facility]/ZIP Co de Phone Number [facility] CLKS# [id number] [address] [place] [address] * TROPONIN 2 HR, 5TH GEN (11/04/2024 7:35 AM HAT STEAMER) [facility] TROPONIN T, 2 HR 5TH GEN <6 <=10 ng/L 11/04/2024 8:31 AM [facility] Blood Venipuncture / Unknown 11/04/2024 7:35 AM HAT STEAMER 11/04/2024 7:38 AM HAT STEAMER [facility] - 11/04/2024 8:31 AM HAT STEAMER Troponin Undetectable Delay in collection of timed specimen beyond recommended collection interval. Results must be interpreted in clinical context. Unable to calculate delta. Jesus Manjarrez DO CHEMISTRY ORDERABLES Final Resul t Performing Organization Address [facility]/ZIP Co de Phone Number [facility] CLIA# [id number] [address] [place] [address] * TSH REFLEXIVE (11/04/2024 7:35 AM HAT STEAMER) [facility] TSH 3.57 0.27 - 4.20 uIU/mL 11/04/2024 8:31 AM [facility] [employer] [facility] Blood Venipuncture / Unknown 11/04/2024 7:35 AM HAT STEAMER 11/04/2024 7:38 AM HAT STEAMER Jesus Loki DO CHEMISTRY ORDERABLES Final Resul t Performing Organization Address City/[facility]/ZIP Co de Phone Number [facility] [employer] [facility]# [id number] [address] [place] [address] * PROLACTIN (11/04/2024 7:35 AM HAT STEAMER) PROLACTIN 22.5 4.8 - 23.3 ng/mL 11/04/2024 8:31 AM HAT STEAMER [facility] [employer] [facility] Blood Venipuncture / Unknown 11/04/2024 7:35 AM HAT STEAMER 11/04/2024 7:38 AM HAT STEAMER Jesus Manjarrez DO CHEMISTRY ORDERABLES Final Resul t Performing Organization Address [facility] Co de Phone Number [facility] [employer] [facility]# [id number] [address] [place] [address] * BRAIN NATRIURETIC PEPTIDE, BNP OR PROBNP (11/04/2024 7:35 AM HAT STEAMER) PROBNP, N TERMINAL <36 <124 pg/mL 2024 8:31 AM HAT STEAMER [facility] [employer] [facility] Comment: INTERPRETIVE COMMENT based on diagnosis: Diagnostic [...] Blood Venipuncture / Unknown 11/04/2024 7:35 AM HAT STEAMER 11/04/2024 7:38 AM HAT STEAMER us Jesus Loki DO CHEMISTRY ORDERABLES Final Resul t [facility] YAS# [id number] [address] [place] [address] * CK (11/04/2024 7:35 AM HAT STEAMER) CK 54 20 - 180 U/L 11/04/2024 8:31 AM HAT STEAMER [facility] Blood Venipuncture / Unknown 11/04/2024 7:35 AM HAT STEAMER 11/04/2024 7:38 AM HAT STEAMER Jesus Loki DO CHEMISTRY ORDERABLES Final Resul t Performing Organization Address [facility] Co de Phone Number [facility] YAS# [id number] [address] [place] [address] * XR CHEST PA AND LATERAL 2 VW (11/04/2024 2:51 AM HAT STEAMER) Anatomical Region Laterality Modality Chest Computed Radiogr aphy 11/04/2024 2:51 AM HAT STEAMER Impressions 11/04/2024 8:04 AM HAT STEAMER IMPRESSION: Mild bilateral interstitial prominence in the mid and lower lungs. This may represent mild interstitial edema or infiltrate. DICTATION LOCATION: Location 1 - [facility] Narrative 11/04/2024 8:04 AM HAT STEAMER CHEST PA AND LATERAL DATE: 11/04/2024 2:51 [...] or infiltrate. DICTATION LOCATION: Location 1 - [facility] DO DIAGNOSTIC IMAGING ORDERABLES Fi nal Result * EXTRA TUBE (BLUE) (11/04/2024 2:36 AM HAT STEAMER) Blood Venipuncture / Unknown 11/04/2024 2:36 AM HAT STEAMER 11/04/2024 2:46 AM HAT STEAMER BRIKA DO HEMATOLOGY ORDERABLES Final Resu lt Performing Organization Address [facility] Co de Phone Number [facility] [employer] [facility] CLIA# [id number] [address] [place] [address] * TROPONIN BASELINE, 5TH GEN (11/04/2024 2:36 AM HAT STEAMER) TROPONIN T, BASELINE 5TH GEN <6 <=10 ng/L 11/04/2024 3:26 AM HAT STEAMER [facility] [employer] [facility] Blood Venipuncture / Unknown 11/04/2024 2:36 AM HAT STEAMER 11/04/2024 2:46 AM HAT STEAMER Narrative [facility] LABORATORY [facility] - 11/04/2024 3:26 AM HAT STEAMER Troponin Undetectable [facility] DO CHEMISTRY ORDERABLES Final Resul t Performing Organization Address [facility] Co de Phone Number [facility] [employer] [facility] CLIA# [id number] [address] [place] [address] * (ABNORMAL) CBC WITH DIFFERENTIAL (11/04/2024 2:36 AM HAT STEAMER) [facility] WBC 10.7(H) 4.0 - 9.8 K/uL 11/04/2024 2:52 AM HAT STEAMER [facility] RBC 4.94(H) 3.90 - 4.90 M/uL 11/04/2024 2:52 AM HAT STEAMER [facility] HEMOGLOBIN 14.5 11.8 - 14.8 g/dL 11/04/2024 2:52 AM HAT STEAMER [facility] HEMATOCRIT 41.1 35.5 - 44.0 % 11/04/2024 2:52 AM HAT STEAMER [facility] MCV 83.2 82.0 - 99.0 fL 11/04/2024 2:52 AM HAT STEAMER [facility] MCH 29.4 27.2 - 32.6 pg 11/04/2024 2:52 AM HAT STEAMER [facility] MCHC 35.3 31.5 - 35.5 g/dL 11/04/2024 2:52 AM HAT STEAMER [facility] RDW 12.1 11.5 - 14.5 % 11/04/2024 2:52 AM HAT STEAMER [facility] RDW-STDEV 36.9(L) 37.1 - 48.7 fL 11/04/2024 2:52 AM [facility] PLATELETS 302 140 - 350 K/uL 11/04/2024 2:52 AM HAT STEAMER [facility] MPV 9.9 9.3 - 12.4 fL 11/04/2024 2:52 AM HAT STEAMER [facility] NEUTROPHILS 66 % 11/04/2024 2:52 AM HAT STEAMER [facility] LYMPHOCYTES 26 % 11/04/2024 2:52 AM HAT STEAMER [facility] MONOCYTES 6 % 11/04/2024 2:52 AM HAT STEAMER [facility] EOSINOPHILS 2 % 11/04/2024 2:52 AM HAT STEAMER [facility] BASOPHILS 1 % 11/04/2024 2:52 AM HAT STEAMER [facility] IMMATURE GRANULOCYTES 1 % 11/04/2024 2:52 AM HAT STEAMER [facility] Comment:IG (Immature Granulo cyte) count includes Metamyelocytes, Myelocytes, and Promyelocytes NEUTROPHIL ABSOLUTE 7.03(H) 1.90 - 7.00 K/uL 11/04/2024 2:52 AM [facility] LABORATORY [facility] LYMPHOCYTE ABSOLUTE 2.73 0.70 - 4.50 K/uL 11/04/2024 2:52 AM [facility] LABORATORY [facility] MONOCYTE ABSOLUTE 0.62 0.10 - 1.30 K/uL 11/04/2024 2:52 AM [facility] LABORATORY [facility]. [facility] EOSINOPHIL ABSOLUTE 0.21 0.00 - 0.70 K/uL 11/04/2024 2:52 AM [facility] LABORATORY [facility]. [facility] BASOPHILS ABSOLUTE 0.06 0.00 - 0.20 K/uL 11/04/2024 2:52 AM [facility] LABORATORY [facility] IMMATURE GRANULOCYTES ABSOLUTE 0.05(H) 0.00 - 0.03 K/uL 11/04/2024 2:52 AM [facility] Blood Venipuncture / Unknown 11/04/2024 2:36 AM HAT STEAMER 11/04/2024 2:46 AM HAT STEAMER Jesus Manjarrez DO HEMATOLOGY ORDERABLES Final Resu lt [facility] CLIA# [id number] [address] [place] [address] * LIPASE (11/04/2024 2:36 AM HAT STEAMER) LIPASE 39 13 - 60 U/L 11/04/2024 3:26 AM [facility] Blood Venipuncture / Unknown 11/04/2024 2:36 AM HAT STEAMER 11/04/2024 2:46 AM HAT STEAMER Jesus Manjarrez DO CHEMISTRY ORDERABLES Final Resul t [facility] CLIA# [id number] [address] [place] [address] * (ABNORMAL) COMPREHENSIVE METABOLIC PANEL (11/04/2024 2:36 AM HAT STEAMER) SODIUM 136 136 - 145 mmol/L 11/04/2024 3:26 AM HAT STEAMER [facility] POTASSIUM 3.3(L) 3.5 - 5.0 mmol/L 11/04/2024 3:26 AM [facility] CHLORIDE 105 98 - 107 mmol/L 11/04/2024 3:26 AM [facility] CO2 17(L) 22 - 29 mmol/L 11/04/2024 3:26 AM [facility] CALCIUM 9.8 8.6 - 10.2 mg/dL 11/04/2024 3:26 AM [facility] BUN 11 6 - 20 mg/dL 11/04/2024 3:26 AM [facility] CREATININE 0.76 0.51 - 0.95 mg/dL 11/04/2024 3:26 AM [facility] GLUCOSE 119(H) 74 - 99 mg/dL 11/04/2024 3:26 AM [facility] - . [facility] TOTAL PROTEIN 7.3 6.7 - 8.6 g/dL 11/04/2024 3:26 AM [facility] ALBUMIN 4.4 3.5 - 5.2 g/dL 11/04/2024 3:26 AM [facility] BILIRUBIN TOTAL 0.2(L) 0.3 - 1.2 mg/dL 11/04/2024 3:26 AM [facility] ALKALINE PHOSPHATASE 66 35 - 104 U/L 11/04/2024 3:26 AM [facility] AST 17 <33 U/L 11/04/2024 3:26 AM [facility] ALT 21 <34 U/L 11/04/2024 3:26 AM [facility] GFR >60 >=60 mL/min/1.7 3 sq meter 11/04/2024 3:26 AM [facility] LABORATORY [facility] Comment:eGFR calculated with 2020 CKD-EPI equation. Vegetarian diet, extremely high or low muscle mass, and may affect results. Cystatin C with Glomerular Filtration Rate is a suitable alternative for these patients. ANION GAP 14 8 - 16 mmol/L 11/04/2024 3:26 AM HAT STEAMER [facility] Blood Venipuncture / Unknown 11/04/2024 2:36 AM HAT STEAMER 11/04/2024 2:46 AM HAT STEAMER Narrative [facility] LABORATORY [facility] - 11/04/2024 3:26 AM HAT STEAMER Samples containing indocyanine green cause interferences on Total and/or Direct Bilirubin and must not be measured. Jesus Manjarrez DO CHEMISTRY ORDERABLES Final Resul t [id number] [facility] [place] [address] * EKG 12-LEAD (11/04/2024 2:26 AM HAT STEAMER) 11/04/2024 2:26 AM HAT STEAMER [facility] - 11/04/2024 5:[address] [place] [address] Test Date: 2024-11-04 Pat Name: LIAM VIVAR Department: 38 Room: Gender: Female Electronic Installer: [id number] : 1990 Requested By: Order Number: [id number] Reading MD: Alexis Quintana Measurements Intervals [place] Rate: 79 P: 51 W[place]: 153 QRS: 16 QRSD: 97 T: 35 QT: 388 QTc: 445 Interpretive Statements Sinus rhythm Low voltage, precordial leads Electronically Signed On 11-04-2024 5:56:54 HAT STEAMER by Alexis Quintana Procedure Note Alexis Quintana MD - 11/04/2024 [facility] [address] [place] [address] Test Date: 2024-11-04 Pat Name: LIAM VIVAR Department: 38 Room: Gender: Female Electronic Installer: [id number] : 1990 Requested By: Order Number: [id number] Reading MD: Alexis Quintana Measurements Intervals [place] Rate: 79 P: 51 [place]: 153 QRS: 16 QRSD: 97 T: 35 QT: 388 QTc: 445 Interpretive Statements Sinus rhythm Low voltage, precordial leads Electronically Signed On 11-04-2024 5:56:54 HAT STEAMER by Alexis Quintana Jesus Manjarrez DO ECG ORDERABLES Final Result INTERFACE SYSTEM Refer to clinic/hospital department from Last 3 Months Care Teams Accounts Payable Administrator Relationship Specialty Start Date End Date Diallo Mccall DO [address] [id number] PCP - General Family Practice 11/04/24
--- OUTSIDE RECORDS SUMMARY | 2025-01-15 08:26 | XMS_ITS | Continuity of Care Document ---
Author Organization [facility] Address [address] [place] [address] [place] [address] Phone Care Team Providers Care Elevator Conductor Name Role Phone Darron Chilel MD Unavailable Unavailable Allergies, Adverse Reactions, Alerts Substance Reaction Status Criticality Cephalosporins Active No Informatio n Medications Medication Instructions Dosage Effective Dates (start - stop) Status Comments Crestor 10 mg tablet take 1 tablet by oral route every day 10 MG - Active Celexa 10 mg tablet take 1 tablet by oral route every day 10 MG - Active lamotrigine 100 mg tablet take 1 tablet by oral route every day 100 MG - Active Xanax 0.5 mg tablet take 1 tablet by oral route every 4 - 6 hours as needed 0.5 MG - Active PRn for panic attacks, avoid driving or operate machines Protonix 40 mg tablet,delayed release take 1 [...] Diagnoses Date Provider Providers Copied on Encounter [facility], [address], [place], [place], [address], tel:[phone] [facility] No Information 2 Getachew Rob. [address], [place], [place], [address] , [place]. tel:[phone] OFFICE/OUTPA TIENT VISIT, [facility], [address], [place], [place], [address], [place] tel:[phone] [facility] anxiety1 (chief complaint) HLP (chief complaint) GERD1 (chief complaint) HyperlipidemiaGener alized Anxiety DisorderGERD w/o esophagitisIrritabl e bowel syndrome NOS 1 Getachew Rob. [address], [place], [place], [address] , [place]. tel:[phone] OFFICE/OUTPA TIENT VISIT, [facility], [address], [place], [place], [address], [place] tel:[phone] [facility] nausea1 (chief complaint) anxiety1 (chief complaint) HLP (chief complaint) weight loss1 (chief complaint) HyperlipidemiaAbnor mal weight lossGeneralized Anxiety DisorderNausea 1 Getachew Rob. [address], [place], [place], [address] , [place]. [phone] OFFICE/OUTPA TIENT VISIT, EST [facility], [address], [place], [place], [address], [place] tel:[phone] [facility] HLP (chief complaint) iron (chief complaint) anxiety1 (chief complaint) Generalized Anxiety DisorderHyperlipide miaIron deficiency Dec-0 - 0 Getachew Rob. [address], [place], [place], [address] , [place]. tel:[phone] OFFICE/OUTPA TIENT VISIT, [facility], [address], [place], [place], [address], [place] tel:[phone] [facility] GERD1 (chief complaint) HLP (chief complaint) anxiety1 (chief complaint) low iron (chief complaint) HyperlipidemiaGERD w/o esophagitisIron deficiencyGeneraliz ed Anxiety Disorder Sep-3 0-202 0 Getachew Rob. [address], [place], [place], [address] , [place]. [phone] OFFICE/OUTPA TIENT VISIT, [facility], [address], [place], [place], [address], [place] tel:[phone] [facility] HLP (chief complaint) anxiety1 (chief complaint) abd pain1 (chief complaint) iron1 (chief complaint) HyperlipidemiaGERD w/o esophagitisGenerali zed Anxiety DisorderIron deficiency Apr- 0 Getachew Rob. [address], [address], [place], [place], [address] , [place]. [phone] OFFICE/OUTPA TIENT VISIT, [facility], [address], [place], [place], [address], [place] tel:[phone] [facility] GERD1 (chief complaint) HLP (chief complaint) anxiety1 (chief complaint) GERD w/o esophagitisIrritabl e bowel syndrome NOSHyperlipidemiaGe neralized Anxiety DisorderVitamin D deficiency, unspecified 0 Getachew Rob. [address], [address], [place], [place], [address] , [place]. tel:[phone] OFFICE/OUTPA TIENT VISIT, [facility], [address], [place], [place], [address], [place] tel:[phone] [facility] abd pain1 (chief complaint) anxiety1 (chief complaint) WBC (chief complaint) ColitisGeneralized Anxiety DisorderHematuriaGE RD w/o esophagitis Jayme-0 - 0 Getachew Rob. [address], [address], [place], [place], [address] , [place]. tel:[phone] OFFICE/OUTPA TIENT VISIT, [facility], [address], [place], [place], [address], [place] tel:[phone] [facility] abd pain1 (chief complaint) ColitisLeukocytosis HematuriaFatty liverHyponatremiaSe condary polycythemia 0 Getachew Lawrence [address], [address], [place], [place], [address] , [place]. [phone] OFFICE/OUTPA TIENT VISIT, [facility], [address], [place], [place], [address], [place] tel:[phone] [facility] anxiety1 (chief complaint) Generalized Anxiety Disorder 0 Gteachew Lawrence [address], [place], [place], [address] , [place]. [phone] OFFICE/OUTPA TIENT VISIT, [facility], [address], [place], [place], [address], [place] tel:[phone] [facility] Anxiety1 (chief complaint) obesity1 (chief complaint) Generalized Anxiety DisorderObesity 0 Getachew Lawrence [address], [place], [place], [address] , [place]. [phone] OFFICE/OUTPA TIENT VISIT, [facility], [address], [place], [place], [address], [place] tel:[phone] [facility] anxiety1 (chief complaint) anxiety1 (chief complaint) Generalized Anxiety DisorderAbnormal weight gain 0 Getachew Lawrence [address], [place], [place], [address] , [place]. tel:[phone] Referring Provider: Darron Chilel, [address], [place], [place], [address]. tel:[phone] PREV VISIT, NEW, AGE 18-39 [facility], [address], [place], [place], [address], [place] tel:[phone] [facility] Physical (chief complaint) Generalized Anxiety DisorderEncounter for general adult medical exam w abnormal findingsBody mass index (BMI) 45.0-49.9, adultVitamin D deficiency, unspecified 9 Getachew Rob. [address] [facility] [address], [place], [place], [address] , [place]. tel:[phone] Referring Provider: Darron Chilel [address] [facility] [address], [place], [place], [address]. tel:[phone] Family History Family Member Type Diagnosis Age At Onset Mother Problem (finding) bipolar Brother Problem (finding) Alive and well Father Problem (finding) Alive and well Payers Payer name Insurance type Covered alliance party ID Authoriza tion(s) No Information Social [...] ordered Referral Referred To: Michele Kiran [address] [facility]
[address], [phone] Ordered: Referrals: Allopathic & Osteopathic Physicians : [...] symptoms Pt just saw new GI at [facility] and she had some lab done and she supposes to do another EGD and colonoscopy since new G unable to get previous results from [facility]. Pt takes protonix which helps with GERD [...] denies any chest pain anxiety1 Patient has polisher brass yu anxiety and depression. Patient denies any [...] week Instructions Date Instruction Additional Infor dyllan Special diet education Related t o Body mass index (BMI) 45.0-49.9, adult Increase physical activity Relat ed to Generalized Anxiety Disorder Weight management Related to Gen eralized Anxiety Disorder Assessments Type Assessment Date No Information
--- OUTSIDE RECORDS SUMMARY | 2025-01-15 08:26 | XMS_ITS | Clinical Summary ---
Author Organization [facility] Address [address] [facility] [place] [address] Care Team Providers Care Rn Mental Health Name Role Phone Darron Chilel MD Primary Care Provider [phone] Source Comments [facility],non-owned Affiliates and Associated Physician Practices is amultiple site organization consisting of ambulatory clinics and hospital sitesin [place], [place], [place] and [place]. This disclosure is being madepursuant to the Care Everywhere program and may not contain all information available regarding this patient. Last updated 18.[facility] Allergies Active Allergy Reactions Criticality Noted Date [...] 11/15/19 21 Active ergocalciferol (DRISDOL) 1.25 MG (14160 UT) capsule ergocalciferol (vitamin D2) 1,250 mcg (50,000 unit) capsule Active lamoTRIgine (LAMICTAL) 100 MG tablet once daily Active ondansetron, disintegrating, (ZOFRAN ODT) 4 MG tablet ondansetron 4 mg disintegrating tablet Active Multiple Vitamins-Minera ls (MULTIVITAMIN WOMEN PO) Active cranberry (CRANBERRY) 400 MG tablet Take 400 mg by mouth once daily Active [place]-3 Fatty Acids (FISH OIL PO) vegan version [...] Documents on File Type Date Recorded Patient Teacher Kindergarten Expl anation Adv Directive/Living Will/POA 12/17/2016 Care Teams Rn Mental Health Relationship Specialty Start Date End Date Darron Chilel MD PCP - General Family Medicine 12/10/20
--- OUTSIDE RECORDS SUMMARY | 2025-01-15 08:26 | XMS_ITS | Encounter Summary ---
Author Organization [facility] Address [address] [facility] [place] [address] Care Team Providers Care Embryology Teacher Name Role Phone Darron Chilel MD Primary Care Provider [phone] Encounter Details Date Type Department Care Team (Late st Contact Info) Description 12/10/2020 Telephone [facility] - [address] [facility] [place] [id number] Loan Mak Social History Tobacco Use Types [...] on filedocumented in this encounter Care Teams Embryology Teacher Relationship Specialty Start Date End Date Darron Chilel MD PCP - General Family Medicine 12/10/20 documented as of this encounter
--- OUTSIDE RECORDS SUMMARY | 2025-01-15 08:26 | XMS_ITS | Encounter Summary ---
Author Organization [facility] Address [facility] [place] [address] Care Team Providers Care Paralegal Secretary Name Role Phone Glo Oh MD Primary Care Pro vider Encounter Details Date Type Department Care Team (Late st Contact Info) Description 11/21/2017 Abstract [facility] [address] [place] [address] , Generic Conversion, Social History Tobacco Use Types Packs/Day Years Used Date Smoking Tobacco: Never Assessed Comments Unknown Sex and Gender Information Value Date Recorded Sex Assigned at Not on file Legal Sex Female 9:38 PM SERVICE OPERATIONS MANAGER Gender Identity Not on file Sexual Orientation Not on file documented as of this encounter Plan of Treatment Not on file documented as of this encounter Visit Diagnoses Not on filedocumented in this encounter Care Teams Paralegal Secretary Relationship Specialty Start Date End Date Glo Oh MD [address] [place] [address] PCP - General FAMILY PRACTICE 04/20/19 documented as of this encounter
--- NOTE | 2025-01-15 08:29 | ED.GENADULT ---
HPI - General Adult General Chief complaint: Unspecified Stated complaint: pin needles feeling in lymph nodes Time Seen by Provider: 01/15/25 08:02 History of Present Illness HPI narrative: 34-year-old female presented to the emergency department for evaluation for right-sided sinus pressure and tingling sensation on her right face. Patient does report that she had multiple dental procedures done last week. Patient does report some increased tearing of the right eye. Related Data Home Medications ?Medication ?Instructions ?Recorded ?Confirmed ?Last Taken ?Type alprazolam 0.5 mg tablet 04/21/20 Unknown History hydrocodone 5 mg-acetaminophen 325 04/21/20 Unknown History mg tablet ibuprofen 800 mg tablet 04/21/20 Unknown History lamotrigine 100 mg tablet 04/21/20 Unknown History ondansetron 4 mg disintegrating 04/21/20 Unknown History tablet pantoprazole 40 mg tablet,delayed PO 04/21/20 Unknown History release rosuvastatin 10 mg tablet mg 04/21/20 Unknown History Allergies Allergy/AdvReac Type Severity Reaction Status Date / Time Cephalosporins Allergy Intermediate RASH Verified 05/17/22 02:09 Review of Systems Review of Systems: All systems reviewed & are unremarkable except as noted in HPI and below PMFSH Past Medical History Medical History (Updated 01/15/25 @ 08:32 by Earl Coffey MD) GERD (gastroesophageal reflux disease) Depression Surgical History Surgical History Hx of tonsillectomy Social History Social History Smoking status: Former smoker Second hand tobacco smoke exposure: No Smoking end date: 09/07/12 Alcohol intake: current Gender identity (if verbalized by the patient): Female Exam Narrative: APPEARANCE: Well appearing, no pain, no distress, well-nourished. HEAD: normocephalic, atraumatic. EYES: PERRLA/EOMI, conjunctivae clear. NOSE: Normal no drainage EARS:TMS clear with good light reflex. THROAT: Pharynx clear, no exudate. NECK: Supple. No adenopathy, no masses. RESPIRATORY: Airway patent, respirations nonlabored. Clear to auscultation bilaterally, no rales, rhonchi, wheezing. CARDIOVASCULAR: Regular rate and rhythm without murmurs rubs or gallops. ABDOMINAL: Soft, nontender, nondistended, normal bowel sounds MUSCULOSKELETAL: Moves all extremities. Strength/ROM intact, No edema, No calf tenderness. NEURO: Alert. Cranial nerves II through XII intact. Grossly intact SKIN: Warm, dry. Normal Color Medical Decision Making MDM Narrative Medical decision making narrative: 34-year-old female presents emergency department for evaluation for right-sided facial pain. Patient does have right-sided sinus tenderness with sinus drainage. Differential does include sinusitis but due to her recent dental procedures patient is also being started on antibiotics for possible dental infection. Patient is also being provided medication for pain control and patient was advised to take a mild decongestants such as Claritin or Zyrtec to help with sinus symptoms. Differential Diagnosis Differential Diagnosis: Sinusitis, Earnest syndrome, dental infection, trigeminal neuralgia, Love's palsy Discharge Plan Discharge Clinical Impression: Sinusitis, Paresthesia Patient Disposition: Home Condition: Stable Instructions: Antibiotic Form, Sinusitis (ED) Additional Instructions: Antibiotic as directed until completed. Scheduled ibuprofen for as directed for the next 3-5 days for the anti inflammatory component. [place] as needed for additional pain control.. Have close follow-up with your primary care physician and with your oral surgeon. If you have any worsening symptoms then please call or return to the emergency department. Patient Language: Citizen [place] Prescriptions: New hydrocodone-acetaminophen 5-325 mg tablet 1 tablet PO Q12H PRN (Reason: pain) Qty: 14 0RF amoxicillin-pot clavulanate 875-125 mg tablet 1 tablet PO Q12H 7 Days Qty: 14 0RF No Action amoxicillin-pot clavulanate 875-125 mg tablet 1 tablet PO Q12H Qty: 20 0RF alprazolam 0.5 mg tablet pantoprazole 40 mg tablet,delayed release (DR/EC) PO lamotrigine 100 mg tablet rosuvastatin 10 mg tablet ibuprofen 800 mg tablet hydrocodone-acetaminophen 5-325 mg tablet ondansetron 4 mg tablet,disintegrating citalopram 10 mg tablet 10 mg PO DAILY Qty: 30 2RF Follow-up/Referrals: Stefany,DO Diallo [Primary Care Provider] -
== END 2025-01-15 08:51 | disposition home or self-care (01) ==
PROVIDERS: Emergency Provider Emergency Medicine; PCP Family Medicine
DX: J32.9 Chronic sinusitis, unspecified (principal); R20.2 Paresthesia of skin; Z87.891 Personal history of nicotine dependence
CPT/HCPCS: 99283; A9270

== ENCOUNTER 2025-02-11 07:43 | Emergency (ER) | payer SELFPAY ==
[2025-02-11] VITALS (7 sets, daily range): BP systolic 114–139; BP diastolic 66–97; PULSE 64–82; RESP 13–25; TEMP 36.4; O2SAT 97–100
--- NOTE | ~2025-02-11 | XR_ITS ---
EXAMINATION: XR chest 2V DATE: 02/11/2025 08:21 INDICATION: Chest pain TECHNIQUE: PA and lateral views of the chest were obtained. COMPARISON: Chest radiograph dated 08/03/2023 FINDINGS: The lungs are clear with no focal airspace opacities, pulmonary edema, pleural effusion or pneumothor ax. The cardiomediastinal silhouette is normal. Mild thoracic spondylosis. IMPRESSION: 1. No acute cardiopulmonary disease. Reviewed, dictated and finalized at location A.
--- NOTE | 2025-02-11 07:44 | ECG_ITS ---
Test Date: 2025-02-11 07:54:04 Measurements Intervals [place] Rate: 73 P: 48 CO: 145 QRS: 34 QRSD: 89 T: 44 QT: 394 QTc: 436 Interpretive Statements SINUS RHYTHM INCOMPLETE RIGHT BUNDLE BRANCH BLOCK DELAYED PRECORDIAL R/S TRANSITION LOW QRS VOLTAGE IN PRECORDIAL LEADS BASELINE ARTIFACT- I, II, III, AVR, AVL, AVF BORDERLINE ECG No previous ECG available for comparison Electronically Signed On 02-11-2025 08:13:24 CDT by Stu Michael D.O.
--- OUTSIDE RECORDS SUMMARY | 2025-02-11 07:45 | XMS_ITS | Clinical Summary ---
Author Organization [facility] Address [address] [facility] [place] [address] Care Team Providers Care Waiter/Waitress Tourist Class Name Role Phone Darron Chilel MD Primary Care Provider [phone] Source Comments [facility],non-owned Affiliates and Associated Physician Practices is amultiple site organization consisting of ambulatory clinics and hospital sitesin [place], [place], [place] and [place]. This disclosure is being madepursuant to the Care Everywhere program and may not contain all information available regarding this patient. Last updated 18.[facility] Allergies Active Allergy Reactions Criticality Noted Date [...] 11/15/19 21 Active ergocalciferol (DRISDOL) 1.25 MG (50535 UT) capsule ergocalciferol (vitamin D2) 1,250 mcg (50,000 unit) capsule Active lamoTRIgine (LAMICTAL) 100 MG tablet once daily Active ondansetron, disintegrating, (ZOFRAN ODT) 4 MG tablet ondansetron 4 mg disintegrating tablet Active Multiple Vitamins-Minera ls (MULTIVITAMIN WOMEN PO) Active cranberry (CRANBERRY) 400 MG tablet Take 400 mg by mouth once daily Active [place]-3 Fatty Acids (FISH OIL PO) vegan version [...] 1:29 PM CDT Oxygen Saturation 99% 12/10/2020 1:29 PM CDT Inhaled Oxygen Concentration - - Weight 125.7 kg (277 lb 3.2 oz) 12/10/2020 1:29 PM CDT Height 171.5 cm (5' 7.5) 12/10/2020 1:29 PM CDT Body Mass Index [...] Documents on File Type Date Recorded Patient Mental Health Consultant Expl anation Adv Directive/Living Will/POA 12/17/2016 Care Teams Waiter/Waitress Tourist Class Relationship Specialty Start Date End Date Darron Chilel MD PCP - General Family Medicine 12/10/20
--- OUTSIDE RECORDS SUMMARY | 2025-02-11 07:45 | XMS_ITS | Clinical Summary ---
Author Organization [facility] Address [address] [place] [phone] Phone Care Team Providers Care Tap Dancer Name Role Phone Diallo Mccall Primary Care Provider [phone] Medications ALPRAZOLAM ORAL Take by mouth. Active Encounters Date Type Department Care Team Description 01/31/2025 External Device Data [facility] ABSTRACTION Provider, Abstract 01/31/2025 External Device Data [facility] ABSTRACTION Provider, Abstract 01/31/2025 External Device Data [facility] ABSTRACTION Provider, Abstract 01/03/2025 External Device Data [facility]CTION Provider, Abstract 12/06/2024 External Device Data [facility] ABSTRACTION Provider, Abstract 12/06/2024 External Device Data [facility] ABSTRACTION Provider, Abstract 12/06/2024 External Device Data [facility] ABSTRACTION Provider, Abstract 11/15/2024 External Device Data [facility] ABSTRACTION Provider, Abstract 11/15/2024 External Device Data [facility] ABSTRACTION Provider, Abstract from Last 3 Months Social History Tobacco [...] on file Legal Sex Female 2:11 AM AIR CONDITIONING SPECIALIST Gender Identity Not on file Sexual Orientation Not on file Last Filed Vital Signs Vital Sign Reading Time Taken Comments Blood Pressure 137/95 11/04/2024 7:36 AM AIR CONDITIONING SPECIALIST Pulse 64 11/04/2024 7:36 AM AIR CONDITIONING SPECIALIST Temperature 36.4 C (97.5 F) 11/04/2024 5:23 AM AIR CONDITIONING SPECIALIST Respiratory Rate 18 11/04/2024 5:23 AM AIR CONDITIONING SPECIALIST Oxygen Saturation 99% 11/04/2024 7:36 AM AIR CONDITIONING SPECIALIST Inhaled Oxygen Concentration - - Weight 125.6 kg (277 lb) 11/04/2024 2:29 AM AIR CONDITIONING SPECIALIST Height 170.2 cm (5' 7) 11/04/2024 2:29 AM AIR CONDITIONING SPECIALIST Body Mass Index 43.38 11/04/2024 2:29 AM AIR CONDITIONING SPECIALIST Plan of Treatment Health Maintenance Due Date Last Done Comments DTAP/TDAP/TD VACCINES (1 - Tdap) 2011 HEPATITIS B VACCINES (1 of 3 - 19+ 3-dose series) 2011 HPV/Cotest (21-29) 2013 CERVICAL CANCER SCREENING 2022 HPV/Cotest (30-65) 2022 PAP SMEAR 2022 INFLUENZA VACCINE (#1) 2024 HPV VACCINES Aged Out No longer eligi ble based on patient's age to complete this topic Care Teams Tap Dancer Relationship Specialty Start Date End Date Diallo Mccall DO [facility] [place] [phone] PCP - General Family Practice 11/04/24
--- OUTSIDE RECORDS SUMMARY | 2025-02-11 07:45 | XMS_ITS | Continuity of Care Document ---
Author Organization [facility] Address [address] [place] [address] [place] [address] Phone Care Team Providers Care Nutritional Services Cook Name Role Phone Darron Chilel MD Unavailable [...] Diagnoses Date Provider Providers Copied on Encounter [facility], [address], [place], [place], [address], tel:[phone] [facility] No Information 2 Getachew Rob. [address], [place], [place], [address] , [place]. tel:[phone] OFFICE/OUTPA TIENT VISIT, [facility], [address], [place], [place], [address], [place] tel:[phone] [facility] anxiety1 (chief complaint) HLP (chief complaint) GERD1 (chief complaint) HyperlipidemiaGener alized Anxiety DisorderGERD w/o esophagitisIrritabl e bowel syndrome NOS 1 Getachew Rob. [address], [place], [place], [address] , [place]. tel:[phone] OFFICE/OUTPA TIENT VISIT, [facility], [address], [place], [place], [address], [place] tel:[phone] [facility] nausea1 (chief complaint) anxiety1 (chief complaint) HLP (chief complaint) weight loss1 (chief complaint) HyperlipidemiaAbnor mal weight lossGeneralized Anxiety DisorderNausea 1 Getachew Rob. [address], [place], [place], [address] , [place]. [phone] OFFICE/OUTPA TIENT VISIT, EST [facility], [address], [place], [place], [address], [place] tel:[phone] [facility] HLP (chief complaint) iron (chief complaint) anxiety1 (chief complaint) Generalized Anxiety DisorderHyperlipide miaIron deficiency Dec-0 - 0 Getachew Rob. [address], [place], [place], [address] , [place]. tel:[phone] OFFICE/OUTPA TIENT VISIT, [facility], [address], [place], [place], [address], [place] tel:[phone] [facility] GERD1 (chief complaint) HLP (chief complaint) anxiety1 (chief complaint) low iron (chief complaint) HyperlipidemiaGERD w/o esophagitisIron deficiencyGeneraliz ed Anxiety Disorder Sep-3 0-202 0 Getachew Rob. [address], [place], [place], [address] , [place]. [phone] OFFICE/OUTPA TIENT VISIT, [facility], [address], [place], [place], [address], [place] tel:[phone] [facility] HLP (chief complaint) anxiety1 (chief complaint) abd pain1 (chief complaint) iron1 (chief complaint) HyperlipidemiaGERD w/o esophagitisGenerali zed Anxiety DisorderIron deficiency Apr- 0 Getachew Rob. [address], [place], [place], [address] , [place]. [phone] OFFICE/OUTPA TIENT VISIT, [facility], [address], [place], [place], [address], [place] tel:[phone] [facility] GERD1 (chief complaint) HLP (chief complaint) anxiety1 (chief complaint) GERD w/o esophagitisIrritabl e bowel syndrome NOSHyperlipidemiaGe neralized Anxiety DisorderVitamin D deficiency, unspecified 0 Getachew Rob. [address], [place], [place], [address] , [place]. tel:[phone] OFFICE/OUTPA TIENT VISIT, [facility], [address], [place], [place], [address], [place] tel:[phone] [facility] abd pain1 (chief complaint) anxiety1 (chief complaint) WBC (chief complaint) ColitisGeneralized Anxiety DisorderHematuriaGE RD w/o esophagitis Jayme-0 - 0 Getachew Rob. [address], [place], [place], [address] , [place]. tel:[phone] OFFICE/OUTPA TIENT VISIT, [facility], [address], [place], [place], [address], [place] tel:[phone] [facility] abd pain1 (chief complaint) ColitisLeukocytosis HematuriaFatty liverHyponatremiaSe condary polycythemia 0 Getachew Lawrence [address], [place], [place], [address] , [place]. [phone] OFFICE/OUTPA TIENT VISIT, [facility], [address], [place], [place], [address], [place] tel:[phone] [facility] anxiety1 (chief complaint) Generalized Anxiety Disorder 0 Getachew Lawrence [address], [place], [place], [address] , [place]. [phone] OFFICE/OUTPA TIENT VISIT, [facility], [address], [place], [place], [address], [place] tel:[phone] [facility] Anxiety1 (chief complaint) obesity1 (chief complaint) Generalized Anxiety DisorderObesity 0 Getachew Lawrence [address], [place], [place], [address] , [place]. [phone] OFFICE/OUTPA TIENT VISIT, [facility], [address], [place], [place], [address], [place] tel:[phone] [facility] anxiety1 (chief complaint) anxiety1 (chief complaint) Generalized Anxiety DisorderAbnormal weight gain 0 Getachew Lawrence [address], [place], [place], [address] , [place]. tel:[phone] Referring Provider: Darron Chilel, [address], [place], [place], [address]. tel:[phone] PREV VISIT, NEW, AGE 18-39 [facility], [address], [place], [place], [address], [place] tel:[phone] [facility] Physical (chief complaint) Generalized Anxiety DisorderEncounter for general adult medical exam w abnormal findingsBody mass index (BMI) 45.0-49.9, adultVitamin D deficiency, unspecified 9 Getachew Rob. [address], [facility] [address], [place], [place], [address] , [place]. tel:[phone] Referring Provider: Rossi Hale [facility] [address], [place], [place], [address]. tel:[phone] Family History Family Member Type Diagnosis Age At Onset Mother Problem (finding) bipolar Brother Problem (finding) Alive and well Father Problem (finding) Alive and well Payers Payer name Insurance type Covered democrat ID Authoriza tion(s) No Information Social History [...] ordered Referral Referred To: Michele Kiran [address] [facility]
[address], [phone] Ordered: Referrals: Allopathic & Osteopathic Physicians : [...] symptoms Pt just saw new GI at [facility] and she had some lab done and she supposes to do another EGD and colonoscopy since new G unable to get previous results from [facility]. Pt takes protonix which helps with GERD [...] HLP Pt has HLP Pt ta ascencion rucker .Pt still has not done lab [...] homicidal thought Pt denies any crying spells iron Pt has low iron and ferritin Pt had negative EGD and colonoscopy pt denies any blood in urine Pt had uterine ablation but she is still spotting per pt HLP Pt has HLP Pt ta ascencion rucker Pt denies any myalgia low iron Pt had uterine a blation [...] diet Pt is overweight anxiety1 Patient has soft crab shedder yu anxiety and depression. Patient denies any [...] denies any crying spells. anxiety1 Pt has chronic a nxiety and [...]
--- OUTSIDE RECORDS SUMMARY | 2025-02-11 07:45 | XMS_ITS | Encounter Summary ---
Author Organization [facility] Address [address] [place] [address] Care Team Providers Care Cosmetic Chemist Name Role Phone Darron Chilel MD Primary Care Provider [phone] Encounter Details Date Type Department Care Team (Late st Contact Info) Description 12/10/2020 Telephone [facility] - [address] [facility] [place] [id number] Loan Mak Social History Tobacco Use Types [...] on filedocumented in this encounter Care Teams Cosmetic Chemist Relationship Specialty Start Date End Date Darron Chilel MD PCP - General Family Medicine 12/10/20 documented as of this encounter
--- OUTSIDE RECORDS SUMMARY | 2025-02-11 07:45 | XMS_ITS | Encounter Summary ---
Author Organization [facility] Address [address] [facility] [place] [address] Care Team Providers Care Rotary Driller Helper Name Role Phone Darron Chilel MD Primary Care Provider [phone] Encounter Details Date Type Department Care Team (Late st Contact Info) Description 11/15/2020 Lab Requisition [facility] [address] [facility] [place] [address] Jed Hauser MD [address] [facility] [place] [address] Social History Tobacco Use Types [...] Diagnosis Comments DERMATOPATHOLOGY Routine 11/14/2020 3:33 AM CHIEF LIBRARIAN BRANCH OR DEPARTMENT documented in this encounter Results * DERMATOPATHOLOGY (11/14/2020 3:33 AM CHIEF LIBRARIAN BRANCH OR DEPARTMENT) Case Report Dermatopathology Report Case: [id number] Authorizing Provider: Jed Hauser MD Collected: 11/14/2020 03:33 AM Ordering Location: [facility] Received: 11/15/2020 07:18 AM Pathologist: Grisel Mckinley MD Specimen: Skin, right post scalp 1:16 PM [facility] DERMATOPATHOLOGY [facility]ORATORY Final Diagnosis Specimen A. SKIN, right post scalp: COMPOUND MELANOCYTIC NEVUS (D22.4) 1:16 PM [facility] DERMATOPATHOLOGY LABORATORY at 1316 [facility] OR DEPARTMENT Clinical History Irritated nevus. Path# [id number]. 1:16 PM [facility] DERMATOPATHOLOGY [facility]ORAT[facility] Gross Description Specimen A: Received is one formalin filled container labeled with the patient's name and designated right post scalp. The specimen consists of 2 pieces of shave biopsy measuring [id number] and [id number]. Jar 0. 1:16 PM [facility] DERMATOPATHOLOGY [facility]ORATORY Microscopic Description Specimen A. SKIN, right post scalp: There are nests of melanocytes at the dermal-epidermal junction and within the dermis. 1:16 PM [facility] DERMATOPATHOLOGY LABORATORY Disclaimer An external and internal positive and negative controls are appropriate for the histochemical, immunohistochemical and immunofluorescence stain(s) in this case (if any), except where stated explicitly. The performance characteristics of the stain(s) cited in this report were developed and its performance characteristic determined by the Dermatopathology Laboratory at [facility], directed by Dr. Reji Jaime. These tests need not be, and therefore are not, approved by the [place] Food and Drug Administration. The tests are used for clinical purposes. Billing Codes Specimen Charges Stain Charges 91865 1 1 1:16 PM [facility] DERMATOPATHOLOGY [facility]ORATORY Embedded Images 1:16 PM [facility] DERMATOPATHOLOGY [facility]ORATORY Pathology/Cytolo gy TISSUE SPECIMEN FROM SKIN / Unknown 11/14/2020 3:33 AM [facility]RARIAN [facility] OR DEPARTMENT 11/15/2020 7:18 AM [facility]IEF [facility]RARIAN BR[facility] OR DEPARTMENT us Jed Hauser MD LAB - PATHOLOGY/CYTOLOGY ORDER NORBERTO Final Result DERMATOPATHOLOGY LABORATORY [facility] - Department of Dermatology [address], [address] [phone] documented in this encounter Visit Diagnoses Not on filedocumented in this encounter Care Teams Rotary Driller Helper Relationship Specialty Start Date End Date Darron Chilel MD PCP - General Family Medicine 12/10/20 documented as of this encounter
--- OUTSIDE RECORDS SUMMARY | 2025-02-11 07:45 | XMS_ITS | Encounter Summary ---
Author Organization [facility] Address [address] [place] [address] Care Team Providers Care Insolvency Consultant Name Role Phone Darron Chilel MD Primary Care Provider [phone] Encounter Details Date Type Department Care Team (Late st Contact Info) Description 01/10/2021 Lab Requisition [facility] [address] [facility] [place] [phone] Jed Hauser MD [address] [facility] [address] [facility] [place] [address] Social History Tobacco Use Types [...] AM CDT) Case Report Dermatopathology Report Case: [id number] Authorizing Provider: Jed Hauser MD Collected: 01/09/2021 03:33 AM Ordering Location: [facility] Lab Received: 01/10/2021 07:20 AM Pathologist: Grisel Mckinley MD Specimen: Skin, left thigh 1:25 PM CDT DERMATOPATHOLOGY LABORATORY Final Diagnosis Specimen A. SKIN, left thigh: TRICHILEMMAL (PILAR) CYST WITH CALCIFICATION (L72.12) PRESENT AT MARGIN 1:25 PM CDT DERMATOPATHOLOGY LABORATORY at 1325 CDT Clinical History Cyst. Check margins. 1:25 PM CDT DERMATOPATHOLOGY LABORATORY Gross Description Specimen A: Received is one formalin filled container labeled with the patient's name and designated left thigh. The specimen consists of 2 pieces of excision measuring [id number] and [id number]. The specimen is serially sectioned and a distribution sales representative section is submitted in cassette 1. [...] characteristic determined by the Dermatopathology Laboratory at [facility], directed by Dr. Reji Jaime. These tests need not be, and therefore are not, approved by the [place] Food and Drug Administration. The tests are used for clinical purposes. Billing Codes Specimen Charges Stain Charges 06549 1 1 1:25 PM CDT DERMATOPATHOLOGY LABORATORY Embedded Images 1 1:25 PM CDT DERMATOPATHOLOGY LABORATORY Pathology/Cytolo gy TISSUE SPECIMEN FROM SKIN / Unknown 01/09/2021 3:33 AM CDT 01/10/2021 7:20 AM CDT Jed Hauser MD LAB - PATHOLOGY/CYTOLOGY ORDER NORBERTO Final Result DERMATOPATHOLOGY LABORATORY [facility] - Department of Dermatology [facility] [address] [place] [address], [address] [phone] documented in this encounter Visit Diagnoses Not on filedocumented in this encounter Care Teams Insolvency Consultant Relationship Specialty Start Date End Date Darron Chilel MD PCP - General Family Medicine 12/10/20 documented as of this encounter
--- OUTSIDE RECORDS SUMMARY | 2025-02-11 08:07 | XMS_ITS | Clinical Summary ---
Author Organization [facility] Address [address] [facility] [place] [address] Care Team Providers Care Telecommunications Officer Name Role Phone Darron Chilel MD Primary Care Provider [phone] Source Comments [facility],non-owned Affiliates and Associated Physician Practices is amultiple site organization consisting of ambulatory clinics and hospital sitesin [place], [place], [place] and [place]. This disclosure is being madepursuant to the Care Everywhere program and may not contain all information available regarding this patient. Last updated 18.[facility] Allergies Active Allergy Reactions Criticality Noted Date [...] 11/15/19 21 Active ergocalciferol (DRISDOL) 1.25 MG (01204 UT) capsule ergocalciferol (vitamin D2) 1,250 mcg (50,000 unit) capsule Active lamoTRIgine (LAMICTAL) 100 MG tablet once daily Active ondansetron, disintegrating, (ZOFRAN ODT) 4 MG tablet ondansetron 4 mg disintegrating tablet Active Multiple Vitamins-Minera ls (MULTIVITAMIN WOMEN PO) Active cranberry (CRANBERRY) 400 MG tablet Take 400 mg by mouth once daily Active [place]-3 Fatty Acids (FISH OIL PO) vegan version [...] Documents on File Type Date Recorded Patient Director Dermatology Expl anation Adv Directive/Living Will/POA 12/17/2016 Care Teams Telecommunications Officer Relationship Specialty Start Date End Date Darron Chilel MD PCP - General Family Medicine 12/10/20
--- OUTSIDE RECORDS SUMMARY | 2025-02-11 08:07 | XMS_ITS | Encounter Summary ---
Author Organization [facility] Address [address] [facility] [place] [address] Care Team Providers Care Comptometrist Name Role Phone Darron Chilel MD Primary Care Provider [phone] Encounter Details Date Type Department Care Team (Late st Contact Info) Description 12/10/2020 Telephone [facility] - [address] [facility] [place] [phone] Loan Mak Social History Tobacco Use Types [...] on filedocumented in this encounter Care Teams Comptometrist Relationship Specialty Start Date End Date Darron Chilel MD PCP - General Family Medicine 12/10/20 documented as of this encounter
--- OUTSIDE RECORDS SUMMARY | 2025-02-11 08:07 | XMS_ITS | Encounter Summary ---
Author Organization [facility] Address [address] [facility] [place] [address] Care Team Providers Care Patient Advocate Name Role Phone Darron Chilel MD Primary Care Provider [phone] Encounter Details Date Type Department Care Team (Late st Contact Info) Description 11/15/2020 Lab Requisition [facility] [address] [facility] [place] [address] Jed Hauser MD [address] [facility] [address] Social History Tobacco Use Types [...] Diagnosis Comments DERMATOPATHOLOGY Routine 11/14/2020 3:33 AM SWAMPER documented in this encounter Results * DERMATOPATHOLOGY (11/14/2020 3:33 AM SWAMPER) Case Report Dermatopathology Report Case: [id number] Authorizing Provider: Jed Hauser MD Collected: 11/14/2020 03:33 AM Ordering Location: [facility] Received: 11/15/2020 07:18 AM Pathologist: Grisel Mckilney MD Specimen: Skin, right post scalp 1:16 PM [facility] DERMATOPATHOLOGY LABORATORY Final Diagnosis Specimen A. SKIN, right post scalp: COMPOUND MELANOCYTIC NEVUS (D22.4) 1:16 PM [facility] DERMATOPATHOLOGY LABORATORY at 1316 SWAMPER Clinical History Irritated nevus. Path# [id number]. 1:16 PM [facility] DERMATOPATHOLOGY LABORATORY Gross Description Specimen A: Received is one formalin filled container labeled with the patient's name and designated right post scalp. The specimen consists of 2 pieces of shave biopsy measuring [id number] and [id number]. Jar 0. 1:16 PM [facility] DERMATOPATHOLOGY LABORATORY Microscopic Description Specimen A. SKIN, right post scalp: There are nests of melanocytes at the dermal-epidermal junction and within the dermis. 1:16 PM [facility] DERMATOPATHOLOGY LABORATORY Disclaimer An external and internal positive and negative controls are appropriate for the histochemical, immunohistochemical and immunofluorescence stain(s) in this case (if any), except where stated explicitly. The performance characteristics of the stain(s) cited in this report were developed and its performance characteristic determined by the Dermatopathology Laboratory at [facility], directed by Dr. Reji Jaime. These tests need not be, and therefore are not, approved by the [place] Food and Drug Administration. The tests are used for clinical purposes. Billing Codes Specimen Charges Stain Charges 37246 1 1 1:16 PM [facility] DERMATOPATHOLOGY LABORATORY Embedded Images 1:16 PM [facility] DERMATOPATHOLOGY LABORATORY Pathology/Cytolo gy TISSUE SPECIMEN FROM SKIN / Unknown 11/14/2020 3:33 AM SWAMPER 11/15/2020 7:18 AM SWAMPER us Jed Hauser MD LAB - PATHOLOGY/CYTOLOGY ORDER NORBERTO Final Result DERMATOPATHOLOGY LABORATORY [facility] - Department of Dermatology [address], [address] [phone] documented in this encounter Visit Diagnoses Not on filedocumented in this encounter Care Teams Patient Advocate Relationship Specialty Start Date End Date Darron Chilel MD PCP - General Family Medicine 12/10/20 documented as of this encounter
--- OUTSIDE RECORDS SUMMARY | 2025-02-11 08:07 | XMS_ITS | Clinical Summary ---
Author Organization [facility] Address [address] [place] [phone] Phone Care Team Providers Care Vulcanizing Press Operator Name Role Phone Diallo Mccall Primary Care Provider [phone] Medications ALPRAZOLAM ORAL Take by mouth. Active [...] on file Legal Sex Female 2:11 AM EDUCATION OFFICER Gender Identity Not on file Sexual Orientation Not on file Last Filed Vital Signs Vital Sign Reading Time Taken Comments Blood Pressure 137/95 11/04/2024 7:36 AM EDUCATION OFFICER Pulse 64 11/04/2024 7:36 AM EDUCATION OFFICER Temperature 36.4 C (97.5 F) 11/04/2024 5:23 AM EDUCATION OFFICER Respiratory Rate 18 11/04/2024 5:23 AM EDUCATION OFFICER Oxygen Saturation 99% 11/04/2024 7:36 AM EDUCATION OFFICER Inhaled Oxygen Concentration - - Weight 125.6 kg (277 lb) 11/04/2024 2:29 AM EDUCATION OFFICER Height 170.2 cm (5' 7) 11/04/2024 2:29 AM EDUCATION OFFICER Body Mass Index 43.38 11/04/2024 2:29 AM EDUCATION OFFICER Plan of Treatment Health Maintenance Due Date Last Done Comments DTAP/TDAP/TD VACCINES (1 - Tdap) 2011 HEPATITIS B VACCINES (1 of 3 - 19+ 3-dose series) 2011 HPV/Cotest (21-29) 2013 CERVICAL CANCER SCREENING 2022 HPV/Cotest (30-65) 2022 PAP SMEAR 2022 INFLUENZA VACCINE (#1) 2024 HPV VACCINES Aged Out No longer eligi ble based on patient's age to complete this topic Care Teams Vulcanizing Press Operator Relationship Specialty Start Date End Date Diallo Mccall DO [facility] [phone] PCP - General Family Practice 11/04/24
--- OUTSIDE RECORDS SUMMARY | 2025-02-11 08:07 | XMS_ITS | Continuity of Care Document ---
Author Organization [facility] Address [address] [place] [address] [place] [address] Phone Care Team Providers Care Locomotive Engineer Diesel Name Role Phone Darron Chilel MD Unavailable [...] Diagnoses Date Provider Providers Copied on Encounter [facility], [address], [place], [place], [address], tel:[phone] [facility] No Information 2 Getachew Rob. [address], [place], [place], [address] , [place]. tel:[phone] OFFICE/OUTPA TIENT VISIT, [facility], [address], [place], [place], [address], [place] tel:[phone] [facility] anxiety1 (chief complaint) HLP (chief complaint) GERD1 (chief complaint) HyperlipidemiaGener alized Anxiety DisorderGERD w/o esophagitisIrritabl e bowel syndrome NOS 1 Getachew Rob. [address], [place], [place], [address] , [place]. tel:[phone] OFFICE/OUTPA TIENT VISIT, [facility], [address], [place], [place], [address], [place] tel:[phone] [facility] nausea1 (chief complaint) anxiety1 (chief complaint) HLP (chief complaint) weight loss1 (chief complaint) HyperlipidemiaAbnor mal weight lossGeneralized Anxiety DisorderNausea 1 Getachew Rob. [address], [place], [place], [address] , [place]. [phone] OFFICE/OUTPA TIENT VISIT, EST [facility], [address], [place], [place], [address], [place] tel:[phone] [facility] HLP (chief complaint) iron (chief complaint) anxiety1 (chief complaint) Generalized Anxiety DisorderHyperlipide miaIron deficiency Dec-0 - 0 Getachew Rob. [address], [place], [place], [address] , [place]. tel:[phone] OFFICE/OUTPA TIENT VISIT, [facility], [address], [place], [place], [address], [place] tel:[phone] [facility] GERD1 (chief complaint) HLP (chief complaint) anxiety1 (chief complaint) low iron (chief complaint) HyperlipidemiaGERD w/o esophagitisIron deficiencyGeneraliz ed Anxiety Disorder Sep-3 0-202 0 Getachew Rob. [address], [place], [place], [address] , [place]. [phone] OFFICE/OUTPA TIENT VISIT, [facility], [address], [place], [place], [address], [place] tel:[phone] [facility] HLP (chief complaint) anxiety1 (chief complaint) abd pain1 (chief complaint) iron1 (chief complaint) HyperlipidemiaGERD w/o esophagitisGenerali zed Anxiety DisorderIron deficiency Apr- 0 Getachew Rob. [address], [place], [place], [address] , [place]. [phone] OFFICE/OUTPA TIENT VISIT, [facility], [address], [place], [place], [address], [place] tel:[phone] [facility] GERD1 (chief complaint) HLP (chief complaint) anxiety1 (chief complaint) GERD w/o esophagitisIrritabl e bowel syndrome NOSHyperlipidemiaGe neralized Anxiety DisorderVitamin D deficiency, unspecified 0 Getachew Rob. [address], [address], [place], [place], [address] , [place]. tel:[phone] OFFICE/OUTPA TIENT VISIT, [facility], [address], [place], [place], [address], [place] tel:[phone] [facility] abd pain1 (chief complaint) anxiety1 (chief complaint) WBC (chief complaint) ColitisGeneralized Anxiety DisorderHematuriaGE RD w/o esophagitis Jayme-0 - 0 Getachew Rob. [address], [place], [place], [address] , [place]. tel:[phone] OFFICE/OUTPA TIENT VISIT, [facility], [address], [place], [place], [address], [place] tel:[phone] [facility] abd pain1 (chief complaint) ColitisLeukocytosis HematuriaFatty liverHyponatremiaSe condary polycythemia 0 Getachew Lawrence [address], [address], [place], [place], [address] , [place]. [phone] OFFICE/OUTPA TIENT VISIT, [facility], [address], [place], [place], [address], [place] tel:[phone] [facility] anxiety1 (chief complaint) Generalized Anxiety Disorder 0 Getachew Lawrence [address], [address], [place], [place], [address] , [place]. [phone] OFFICE/OUTPA TIENT VISIT, [facility], [address], [place], [place], [address], [place] tel:[phone] [facility] Anxiety1 (chief complaint) obesity1 (chief complaint) Generalized Anxiety DisorderObesity 0 Getachew Lawrence [address], [place], [place], [address] , [place]. [phone] OFFICE/OUTPA TIENT VISIT, [facility], [address], [place], [place], [address], [place] tel:[phone] [facility] anxiety1 (chief complaint) anxiety1 (chief complaint) Generalized Anxiety DisorderAbnormal weight gain 0 Getachew Lawrence [address], [place], [place], [address] , [place]. tel:[phone] Referring Provider: Darron Chilel, [address], [place], [place], [address]. tel:[phone] PREV VISIT, NEW, AGE 18-39 [facility], [address], [place], [place], [address], [place] tel:[phone] [facility] Physical (chief complaint) Generalized Anxiety DisorderEncounter for general adult medical exam w abnormal findingsBody mass index (BMI) 45.0-49.9, adultVitamin D deficiency, unspecified 9 Getachew Rob. [address] [facility] [address], [place], [place], [address] , [place]. tel:[phone] Referring Provider: Darron Chilel [address] [facility] [address], [place], [place], [address]. tel:[phone] Family History Family Member Type Diagnosis Age At Onset Mother Problem (finding) bipolar Brother Problem (finding) Alive and well Father Problem (finding) Alive and well Payers Payer name Insurance type Covered libertarian ID Authoriza tion(s) No Information Social History [...] ordered Referral Referred To: Michele Kiran [address] [facility]
[address], [phone] Ordered: Referrals: Allopathic & Osteopathic Physicians : [...] symptoms Pt just saw new GI at [facility] and she had some lab done and she supposes to do another EGD and colonoscopy since new G unable to get previous results from [facility]. Pt takes protonix which helps with [...] denies any chest pain anxiety1 Patient has chronic specialist yu anxiety and depression. Patient denies any [...]
--- OUTSIDE RECORDS SUMMARY | 2025-02-11 08:07 | XMS_ITS | Encounter Summary ---
Author Organization [facility] Address [address] [facility] [place] [address] Care Team Providers Care Junk Removal Specialist Name Role Phone Darron Chilel MD Primary Care Provider [phone] Encounter Details Date Type Department Care Team (Late st Contact Info) Description 01/10/2021 Lab Requisition [facility] [address] [facility], [place] [id number] Jed Hauser MD [address] [facility] [address] [place] [address] Social History Tobacco Use Types [...] AM CDT) Case Report Dermatopathology Report Case: [id number] Authorizing Provider: Jed Hauser MD Collected: 01/09/2021 03:33 AM Ordering Location: [facility] Received: 01/10/2021 07:20 AM Pathologist: [...] consists of 2 pieces of excision measuring [id number] and [id number]. The specimen is serially sectioned and a customer field representative section is submitted in cassette 1. [...] characteristic determined by the Dermatopathology Laboratory at [facility], directed by Dr. Reji Jaime. These tests need not be, and therefore are not, approved by the [place] Food and Drug Administration. The tests are used for clinical purposes. Billing Codes Specimen Charges Stain Charges 81619 1 1 1:25 PM CDT DERMATOPATHOLOGY LABORATORY Embedded Images 1 1:25 PM CDT DERMATOPATHOLOGY LABORATORY Pathology/Cytolo gy TISSUE SPECIMEN FROM SKIN / Unknown 01/09/2021 3:33 AM CDT 01/10/2021 7:20 AM CDT Jed Hauser MD LAB - PATHOLOGY/CYTOLOGY ORDER NORBERTO Final Result DERMATOPATHOLOGY LABORATORY [facility] - Department of Dermatology [facility] Specialized Medicine [address] [place] [address], [address] [phone] documented in this encounter Visit Diagnoses Not on filedocumented in this encounter Care Teams Junk Removal Specialist Relationship Specialty Start Date End Date Darron Chilel MD PCP - General Family Medicine 12/10/20 documented as of this encounter
--- NOTE | 2025-02-11 08:12 | ED_ITS ---
HPI - General Adult General Chief complaint: Chest Pain Stated complaint: chest pain Time Seen by Provider: 02/11/25 07:45 History of Present Illness HPI narrative: Patient is a 34-year-old female who presents ER with chest pain. Ongoing over last week. Left-sided and grabbing. Also has some tingling in the left arm that began this morning. No exertional component, really only sense is that when she is at rest. Family history of CABG. No diaphoresis. She has had some GI issues over last week including diarrhea and abdominal cramping. Related Data Home Medications ?Medication ?Instructions ?Recorded ?Confirmed ?Last Taken ?Type alprazolam 0.5 mg tablet 04/21/20 Unknown History hydrocodone 5 mg-acetaminophen 325 04/21/20 Unknown History mg tablet ibuprofen 800 mg tablet 04/21/20 Unknown History lamotrigine 100 mg tablet 04/21/20 Unknown History ondansetron 4 mg disintegrating 04/21/20 Unknown History tablet pantoprazole 40 mg tablet,delayed PO 04/21/20 Unknown History release rosuvastatin 10 mg tablet mg 04/21/20 Unknown History Allergies Allergy/AdvReac Type Severity Reaction Status Date / Time Cephalosporins Allergy Intermediate RASH Verified 02/11/25 08:48 Review of Systems 2 Review of Systems: All systems reviewed & are unremarkable except as noted in HPI and below Constitutional: Constitutional: Reports no additional constitutional complaints ENT: Reports system reviewed and no additional complaints, except as documented Cardiovascular: Cardiovascular: Reports no additional cardiovascular complaints Respiratory: Respiratory: Reports no additional respiratory complaints Gastrointestinal: Gastrointestinal: Reports no additional gastrointestinal complaints [facility] Past Medical History Medical History (Updated 02/11/25 @ 12:03 by Per Rueda MD) GERD (gastroesophageal reflux disease) Depression Surgical History Surgical History Hx of tonsillectomy Social History Social History Smoking status: Former smoker Second hand tobacco smoke exposure: No Smoking end date: 09/07/12 Alcohol intake: current Gender identity (if verbalized by the patient): Female Exam 2 Narrative: GENERAL: Well-appearing, obese, and in no acute distress. HEAD: Normocephalic, atraumatic. ENT: Mucous membranes moist. CHEST: Clear to auscultation. No respiratory distress. HEART: Regular rate and rhythm. Normal peripheral pulses. ABDOMEN: Soft, nontender, nondistended. EXTREMITIES: Normal range of motion. No edema. SKIN: Warm, dry, no rash. NEURO: Alert and oriented x3. PSYCH: Normal mood and affect. Course Course Emergency Course: Troponin negative x2. Labs reassuring. Pain improved with Toradol. Discharge home. Vital Signs Vital signs: Vital Signs Temperature 97.6 F 02/11/25 07:47 Pulse Rate 72 02/11/25 07:47 Respiratory Rate 15 02/11/25 07:47 Blood Pressure 123/66 02/11/25 07:47 Pulse Oximetry 100 02/11/25 07:47 Oxygen Delivery Room Air 02/11/25 07:47 Temperature 97.6 F 02/11/25 07:47 Pulse Rate 64 02/11/25 10:17 Respiratory Rate 15 02/11/25 10:17 Blood Pressure 114/84 02/11/25 10:17 Pulse Oximetry 97 02/11/25 10:17 Oxygen Delivery Room Air 02/11/25 08:50 Medical Decision Making Vital Signs Vital Signs: Vital Signs Temperature 97.6 F 02/11/25 07:47 Pulse Rate 72 02/11/25 07:47 Respiratory Rate 15 02/11/25 07:47 Blood Pressure 123/66 02/11/25 07:47 Pulse Oximetry 100 02/11/25 07:47 Oxygen Delivery Room Air 02/11/25 07:47 Temperature 97.6 F 02/11/25 07:47 Pulse Rate 64 02/11/25 10:17 Respiratory Rate 15 02/11/25 10:17 Blood Pressure 114/84 02/11/25 10:17 Pulse Oximetry 97 02/11/25 10:17 Oxygen Delivery Room Air 02/11/25 08:50 Lab Data 02/11/25 08:32 02/11/25 08:32 Labs: Lab Results 02/11/25 02/11/25 Range/Units 08:32 11:15 WBC 6.7 (4.5-10.0) K/mm3 RBC 5.64 H (4.2-5.4) M/mm3 Hgb 16.7 H (12.0-15.0) g/dL Hct 49.1 H (37.0-47.0) % MCV 87.1 (80-100) fl MCH 29.6 (26-34) pg MCHC 34.0 (32-36) g/dl RDW 12.5 (11.5-14.5) % Plt Count 297 (150-375) k/mm3 MPV 9.7 (7.4-10.4) fl Immature Gran % (Auto) 0.3 (0-0.5) % Neut % (Auto) 58.3 (45.5-73.1) % Lymph % (Auto) 32.5 (18.3-44.2) % Waller % (Auto) 4.8 (2.6-8.5) % Eos % (Auto) 3.3 (0-4.4) % Baso % (Auto) 0.8 (0.2-1.2) % Lymph # (Auto) 2.16 (0.9-3.2) K/mm3 Waller # (Auto) 0.3 (0.1-0.6) K/mm3 Eos # (Auto) 0.2 (0-0.3) K/mm3 Baso # (Auto) 0.1 (0.0-0.1) K/mm3 Abs Immat Gran (auto) 0.02 (0.00-0.031) K/mm3 Absolute Neuts (auto) 3.9 (1.3-6.7) K/mm3 Absolute Nucleated RBC 0.000 (0.0-0.012) K/mm3 Nucleated RBC % 0.0 (0.0-0.2) % PT 12.5 (11.1-14.7) Seconds INR 0.9 APTT 28.2 (22.3-36.8) Seconds Sodium 140 (137-145) mmol/L Potassium 4.3 (3.4-5.0) mmol/L Chloride 112 H (98-107) mmol/L Carbon Dioxide 20 L (22-30) mmol/L Anion Gap 8 (4-12) mmol/L BUN 7 (7-17) mg/dL Creatinine 0.77 (0.7-1.0) mg/dL Estim Creat Clear Calc 129 ml/min Estimated GFR > 60 (59 - ) Glucose 97 (65-110) mg/dL Calcium 9.8 (8.4-10.2) mg/dL Total Bilirubin 0.4 (0.2-1.3) mg/dL AST 27 (14-36) U/L ALT 29 (6-35) U/L Alkaline Phosphatase 71 (38-126) U/L Troponin I < 0.012 < 0.012 (0.000-0.034) ng/mL Total Protein 8.0 (6.3-8.2) g/dL Albumin 4.7 (3.5-5.1) g/dL Lipase 82 (23-300) U/L Imaging Data Radiologist's impression: ITS Impressions Chest X-Ray 02/11/25 08:26 IMPRESSION: 1. No acute cardiopulmonary disease. ECG Data EKG #1: ECG completion date: 02/11/25 ECG completion time: 07:54 EKG Interpretation: normal rate (73), sinus rhythm, no ST changes, normal QRS, normal QT and NL axis Discharge Plan Discharge Clinical Impression: Chest wall pain Patient Disposition: Home Condition: Stable Instructions: Chest Wall Pain (ED) Additional Instructions: Please return to the emergency department if you develop severe and persistent chest pain, difficulty breathing, dizziness, leg swelling or if you are coughing up blood as these can be signs of a medical emergency. Please call your doctor for a follow up appointment to determine the need for further testing. Patient Language: French Prescriptions: New naproxen 375 mg tablet 375 mg PO BID Qty: 14 0RF No Action amoxicillin-pot clavulanate 875-125 mg tablet 1 tablet PO Q12H Qty: 20 0RF hydrocodone-acetaminophen 5-325 mg tablet 1 tablet PO Q12H PRN (Reason: pain) Qty: 14 0RF amoxicillin-pot clavulanate 875-125 mg tablet 1 tablet PO Q12H 7 Days Qty: 14 0RF alprazolam 0.5 mg tablet pantoprazole 40 mg tablet,delayed release (DR/EC) PO lamotrigine 100 mg tablet rosuvastatin 10 mg tablet ibuprofen 800 mg tablet hydrocodone-acetaminophen 5-325 mg tablet ondansetron 4 mg tablet,disintegrating citalopram 10 mg tablet 10 mg PO DAILY Qty: 30 2RF Follow-up/Referrals: Stefany,DO Diallo [Primary Care Provider] - 1 Week Quality HEART score for chest pain patients History: slightly suspicious ECG: normal Age: < or = to 45 years Risk factors: 1 or 2 risk factors Troponin: < or = to 1x normal limit Heart score: 1
[2025-02-11] MEDS: ASPIRIN 81 MG CHEWABLE TABLET 324 MG PO (08:38)
[2025-02-11 08:40] LABS: Basophils Absolute Auto 0.1 K/mm3 (0.0-0.1); Basophils Percent Auto 0.8 % (0.2-1.2); Eosinophils Absolute Auto 0.2 K/mm3 (0-0.3); Eosinophils Percent Auto 3.3 % (0-4.4); Hematocrit 49.1 % (37.0-47.0); Hemoglobin 16.7 g/dL (12.0-15.0); Immature Granulocyte Absolute 0.02 K/mm3 (0.00-0.031); Immature Granulocyte Percent A 0.3 % (0-0.5); Lymphocytes Absolute Auto 2.16 K/mm3 (0.9-3.2); Lymphocytes Percent Auto 32.5 % (18.3-44.2); Mean Corpuscular Hemoglobin 29.6 pg (26-34); Mean Corpuscular Volume 87.1 fl (80-100); Mean Platelet Volume 9.7 fl (7.4-10.4); Monocytes Absolute Auto 0.3 K/mm3 (0.1-0.6); Monocytes Percent Auto 4.8 % (2.6-8.5); Neutrophils Absolute Auto 3.9 K/mm3 (1.3-6.7); Neutrophils Percent Auto 58.3 % (45.5-73.1); Platelet Count Result 297 k/mm3 (150-375); Red Blood Count 5.64 M/mm3 (4.2-5.4); Red Cell Distribution Width 12.5 % (11.5-14.5); White Blood Count 6.7 K/mm3 (4.5-10.0)
[2025-02-11 08:52] LABS: INR 0.9; Prothrombin Time 12.5 Seconds (11.1-14.7)
[2025-02-11 08:53] LABS: Alanine Aminotransferase 29 U/L (6-35); Albumin Level 4.7 g/dL (3.5-5.1); Alkaline Phosphatase 71 U/L (38-126); Anion Gap 8 mmol/L (4-12); Aspartate Amino Transferase 27 U/L (14-36); Bilirubin,Total 0.4 mg/dL (0.2-1.3); Blood Urea Nitrogen 7 mg/dL (7-17); Calcium 9.8 mg/dL (8.4-10.2); Carbon Dioxide 20 mmol/L (22-30); Chloride 112 mmol/L (98-107); Estimated CRCL calculation 129 ml/min; Estimated Glomerular Filt Rate > 60; Glucose 97 mg/dL (65-110); Lipase 82 U/L (23-300); Partial Thromboplastin Time 28.2 Seconds (22.3-36.8); Potassium 4.3 mmol/L (3.4-5.0); Sodium 140 mmol/L (137-145)
[2025-02-11 09:04] LABS: Troponin I < 0.012 ng/mL (0.000-0.034)
[2025-02-11] MEDS: KETOROLAC 30 MG/ML VIAL (*BKC) IV PUSH (10:14)
--- NOTE | 2025-02-11 11:15 | ECG_ITS ---
Test Date: 2025-02-11 11:18:41 Measurements Intervals [place] Rate: 61 P: 38 VA: 157 QRS: 27 QRSD: 89 T: 44 QT: 430 QTc: 433 Interpretive Statements SINUS RHYTHM WITH SINUS ARRHYTHMIA DELAYED PRECORDIAL R/S TRANSITION LOW QRS VOLTAGE IN PRECORDIAL LEADS BASELINE ARTIFACT- I, III, AVL BORDERLINE ECG Compared to ECG 02/11/2025 07:54:04 NO SIGNIFICANT CHANGE Electronically Signed On 02-11-2025 16:08:05 CDT by Stu Michael D.O.
[2025-02-11 11:48] LABS: Troponin I < 0.012 ng/mL (0.000-0.034)
== END 2025-02-11 12:21 | disposition home or self-care (01) ==
PROVIDERS: Emergency Provider Emergency Medicine; PCP Family Medicine
DX: R07.89 Other chest pain (principal); K21.9 Gastro-esophageal reflux disease without esophagitis; F32.A Depression, unspecified; Z87.891 Personal history of nicotine dependence; Z79.899 Other long term (current) drug therapy; I45.10 Unspecified right bundle-branch block
CPT/HCPCS: 36415; 71046; 80053; 83690; 84484; 85025; 85610; 85730; 93005; 96374; 99284; A9270; J1885

== ENCOUNTER 2025-04-30 12:30 | Emergency (ER) | payer SELFPAY ==
--- OUTSIDE RECORDS SUMMARY | 2022-03-05 05:39 | XMS_ITS | Continuity of Care Document ---
Author Organization [facility] Address [address] [place] [address] [place] [address] Phone Care Team Providers Care Sales Order Clerk Name Role Phone Darron Chilel MD Unavailable Unavailable Allergies, Adverse Reactions, Alerts Substance Reaction Status Criticality Cephalosporins Active No Informatio n Medications Medication Instructions Dosage Effective Dates (start - stop) Status Comments Xanax 0.5 mg tablet take 1 tablet by oral route every 4 - 6 hours as needed 0.5 MG - Active PRn for panic attacks, avoid driving or operate machines lamotrigine 100 mg tablet take 1 tablet by oral route every day 100 MG - Active Celexa 10 mg tablet take 1 tablet by oral route every day 10 MG - Active Crestor 10 mg tablet take 1 tablet by oral route every day 10 MG - Active Protonix 40 mg tablet,delayed release take 1 tablet by oral route every day 40 MG - Active Procedures Procedure Date OFFICE/OUTPATIENT VISIT, EST OFFICE/OUTPATIENT VISIT, EST OFFICE/OUTPATIENT VISIT, EST OFFICE/OUTPATIENT VISIT, EST OFFICE/OUTPATIENT VISIT, EST OFFICE/OUTPATIENT VISIT, EST OFFICE/OUTPATIENT VISIT, EST OFFICE/OUTPATIENT VISIT, EST OFFICE/OUTPATIENT VISIT, EST OFFICE/OUTPATIENT VISIT, EST OFFICE/OUTPATIENT VISIT, EST PREV VISIT, NEW, AGE 18-39 OFFICE/OUTPATIENT VISIT, NEW Advance Directives Directive Yes / No Effective Date File Name No Information Encounters Encounter Description Practice Location Reason(s) For Visit Diagnoses Date Provider Providers Copied on Encounter [facility], [address], [place], [place], [id number], tel:[phone] [facility] No Information 2 Getachew Rob. [address], [place], [place], [id number] , [place]. tel:[phone] OFFICE/OUTPA TIENT VISIT, [facility], [address], [place], [place], [address], [place] tel:[phone] [facility] anxiety1 (chief complaint) HLP (chief complaint) GERD1 (chief complaint) HyperlipidemiaGener alized Anxiety DisorderGERD w/o esophagitisIrritabl e bowel syndrome NOS 1 Getachew Rob. [address], [place], [place], [id number] , [place]. tel:[phone] OFFICE/OUTPA TIENT VISIT, [facility], [address], [place], [place], [address], [place] tel:[phone] [facility] nausea1 (chief complaint) anxiety1 (chief complaint) HLP (chief complaint) weight loss1 (chief complaint) HyperlipidemiaAbnor mal weight lossGeneralized Anxiety DisorderNausea 1 Getachew Rob. [address], [place], [place], [address] , [place]. [phone] OFFICE/OUTPA TIENT VISIT, EST [facility], [address], [place], [place], [id number], [place] tel:[phone] [facility] HLP (chief complaint) iron (chief complaint) anxiety1 (chief complaint) Generalized Anxiety DisorderHyperlipide miaIron deficiency Dec-0 - 0 Getachew Rob. [address], [place], [place], [address] , [place]. tel:[phone] OFFICE/OUTPA TIENT VISIT, [facility], [address], [place], [place], [address], [place] tel:[phone] [facility] GERD1 (chief complaint) HLP (chief complaint) anxiety1 (chief complaint) low iron (chief complaint) HyperlipidemiaGERD w/o esophagitisIron deficiencyGeneraliz ed Anxiety Disorder Sep-3 0-202 0 Getachew Rob. [address], [place], [place], [address] , [place]. [phone] OFFICE/OUTPA TIENT VISIT, [facility], [address], [place], [place], [address], [place] tel:[phone] [facility] HLP (chief complaint) anxiety1 (chief complaint) abd pain1 (chief complaint) iron1 (chief complaint) HyperlipidemiaGERD w/o esophagitisGenerali zed Anxiety DisorderIron deficiency Apr- 0 Getachew Rob. [address], [place], [place], [address] , [place]. [phone] OFFICE/OUTPA TIENT VISIT, [facility], [address], [place], [place], [address], [place] tel:[phone] [facility] GERD1 (chief complaint) HLP (chief complaint) anxiety1 (chief complaint) GERD w/o esophagitisIrritabl e bowel syndrome NOSHyperlipidemiaGe neralized Anxiety DisorderVitamin D deficiency, unspecified 0 Getachew Rob. [address], [place], [place], [address] , [place]. tel:[phone] OFFICE/OUTPA TIENT VISIT, [facility], [address], [place], [place], [address], [place] tel:[phone] [facility] abd pain1 (chief complaint) anxiety1 (chief complaint) WBC (chief complaint) ColitisGeneralized Anxiety DisorderHematuriaGE RD w/o esophagitis Jayme-0 - 0 Getachew Rob. [address], [place], [place], [address] , [place]. tel:[phone] OFFICE/OUTPA TIENT VISIT, [facility], [address], [place], [place], [address], [place] tel:[phone] [facility] abd pain1 (chief complaint) ColitisLeukocytosis HematuriaFatty liverHyponatremiaSe condary polycythemia 0 Getachew Lawrence [address], [place], [place], [address] , [place]. [phone] OFFICE/OUTPA TIENT VISIT, [facility], [address], [place], [place], [address], [place] tel:[phone] [facility] anxiety1 (chief complaint) Generalized Anxiety Disorder 0 Getachew Lawrence [address], [place], [place], [address] , [place]. [phone] OFFICE/OUTPA TIENT VISIT, [facility], [address], [place], [place], [address], [place] tel:[phone] [facility] Anxiety1 (chief complaint) obesity1 (chief complaint) Generalized Anxiety DisorderObesity 0 Getachew Lawrence [address], [place], [place], [address] , [place]. [phone] OFFICE/OUTPA TIENT VISIT, [facility], [address], [place], [place], [address], [place] tel:[phone] [facility] anxiety1 (chief complaint) anxiety1 (chief complaint) Generalized Anxiety DisorderAbnormal weight gain 0 Getachew Lawrence [address], [place], [place], [address] , [place]. tel:[phone] Referring Provider: Darron Chilel, [address], [place], [place], [address]. tel:[phone] PREV VISIT, NEW, AGE 18-39 [facility], [address], [place], [place], [address], [place] tel:[phone] [facility] Physical (chief complaint) Generalized Anxiety DisorderEncounter for general adult medical exam w abnormal findingsBody mass index (BMI) 45.0-49.9, adultVitamin D deficiency, unspecified 9 Getachew Rob. [address] [facility] [address], [place], [place], [address] , [place]. tel:[phone] Referring Provider: Darron Chilel [address] [facility] [address], [place], [place], [address]. tel:[phone] Family History Family Member Type Diagnosis Age At Onset Mother Problem (finding) bipolar Brother Problem (finding) Alive and well Father Problem (finding) Alive and well Payers Payer name Insurance type Covered green party ID Authoriza tion(s) No Information Social History Type Description Quantity Date Captured Comments Sex Female Smoking Status No Information Chief Complaint And Reason For Visit No Information Plan Of Treatment Date Type Action Status Goal Tobacco cessation counseling completed Goal Special diet education compl eted Goal Tobacco cessation counseling completed Referral Ordered: Michele Kiran -[facility] : Internal Medicine : Gastroenterology (related to Irritable bowel syndrome NOS) ordered Referral Referred To: Michele Kiran [address] [facility]
[address], [phone] Ordered: Referrals: [facility]opathic Physicians : Internal Medicine : Gastroenterology. Michele Kiran. Evaluate and treat ordered Referral Ordered: UPPER GI W/ KUB ordered Referral Ordered: Gastroenterology (related to Colitis) ordered Referral Ordered: Referrals: Gastroenterology. Evaluate and treat ordered History Of Present Illness Encounter Date Complaint History Of Prese nt Illness anxiety1 Pt has chronic a nxiety and depression with mood swings Pt takes celexa, lamictal and xanax PRn and doing ok Pt denies any suicidal or homicidal thought Pt denies any crying spells HLP Pt has HLP Pt ta kes crestor Pt still has not done lab yet Pt denies any myalgia GERD1 Pt has chronic G ERD with IBS symptoms Pt just saw new GI at [facility] and she had some lab done and she supposes to do another EGD and colonoscopy since new G unable to get previous results from [facility]. Pt takes protonix which helps with GERD nausea1 Pt has chronic n ausea with GERD Pt has diffuse abd pain with bloating. Pt has IBS Pt had normal EGD and colonoscopy. Pt is on metamucil. Pt is on protonix. Pt wants some zofran PRN anxiety1 Pt has anxiety a nd depression Pt takes lamictal and celexa and xanax PRn and doing ok Pt denies any suicidal or homicidal thought pt denies any crying spells HLP Pt has HLP Pt rony rucker .Pt still has not done lab yet. pt denies any myalgia weight loss1 Pt has been losi ng weight .Pt is trying to lose weight but she also has frequent nausea, vomiting, nonbloody diarrhea. anxiety1 Pt has chronic a nxiety and depression Pt takes celexa, lamictal and xanax PRn and doing ok pT denies any suicidal or homicidal thought Pt denies any crying spells HLP Pt has HLP Pt rony rucker Pt denies any myalgia iron Pt has low iron and ferritin Pt had negative EGD and colonoscopy pt denies any blood in urine Pt had uterine ablation but she is still spotting per pt GERD1 Pt has chronic G ERD. Pt continues to have GERd and morning nausea despite taking protonix. Pt denies any abd pain anymore. Pt did not do gastric empty study or HIDA scan. Pt wants higher dose of protonix due to above. Pt states that she has the urge to vomit post food and also she feels that her food gets stuck around her stomach. Pt told me she had benign EGD and colonoscopy recently per patient. HLP Pt has HLP. Pt i s on crestor. Pt denies any myalgia anxiety1 Pt has anxiety a nd depression Pt takes celexa, lamictal and xanax PRN and doing ok. Pt denies any suicidal or homicidal thought .PT denies any crying spells low iron Pt had uterine a blation done two months ago Pt denies any menstrual bleeding or any other blood loss HLP Pt tolerating cr estor ok. Pt denies any myalgia. Pt is working on diet anxiety1 Pt has anxiety a nd depression and mood swings. Pt doing ok with celexa, lamictal and xanax PRn Pt denies any suicidal or homicidal thought, Pt denies any crying spells abd pain1 Pt states that s he is doing better regarding her abdominal pain. Her GERD is improving with protonix Pt has not done gastric empty and HIDA scan yet . iron1 Pt has borderlin e low iron sat. Pt did have heavy period, Pt just had ablation done. GERD1 Pt had EGD done which showed gastritis per pt. Pt had benign colonoscopy. Pt is taking protonix which helped her GERD symptoms Pt states that she has abdominal pain post food and she feels wave of nausea and diarrhea uncontrollably. Pt states that she feels that food does not digest well and she feels like food does not move down from her stomach. Pt has mixture of diarrhea and constipation chronically and abdominal pain. Pt also states that she has abdominal pain all the time, Pt is very vague and has hard time explaining her symptoms .Pt states that spicy food tends to make the abd pain worse. 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 Patient denies any suicidal homicidal thoughts. Patient denies any crying spells. Patient takes celexa and Xanax and lamictal and doing okay. Patient noticed more motivation. Patient denies any hopelessness. HLP Pt has HLP .Pt i s not on any diet Pt is overweight abd pain1 Pt has been havi ng abdominal pain with nausea with nonbloody diarrhea for several weeks. Pt feels nauseated all the time chronically. Pt has intermittent vomiting Pt has rather severe GERD for long time. Pt has some abdominal pain and bloating post food Pt states that she feels that food does not digest well after she eats. Pt has been taking omeprazole OTC 1-2 per week even though she has GERD all the time. pt takes a lot of tums. Pt had colonoscopy done which showed some inflammation per patient from GI but no cecal polyp. Pt will do EGD this thursday. Pt denies any acute pain. Pt has chronic mixture of constipation and diarrhea anxiety1 Pt has anxiety a nd depression and mild bipolar. Pt takes celexa and lamictal and xanax PRn and doing ok Pt denies any suicidal or homicidal thought Pt denies any crying spells WBC Pt has leukocyto sis, , polycythemia and also high glucose and hematuria Pt denies any UTI symptoms abd pain1 Pt woke up 6 day s ago in the middle of the night with severe left side abdominal pain. Pt also has vomiting and nonbloody diarrhea Pt states that she has recurrent episodes of above in the past but not as severe .Pt went to Er and CT of abdomen showed jejunal wall thickening with inflammatory change consistently with enteritis and also cecum polyp and fatty liver. Pt has high WBC, high hemoglobin, low sodium, high glucose, and hematuria, Pt denies any fever. pt denies any abd pain or vomiting or diarrhea now. Pt is on cipro now Pt did not take bentyl and also she did not take reglan Pt denies any active symptoms currently ,Pt denies any sick contact and she did not eat outside and nobody in the family has same symptoms and they also ate the same food Pt denies any recent travel. Pt is on omeprazole PRN for GERd. anxiety1 Pt has anxiety a nd depression and bipolar pt denies any suicidal or homicidal thought. Pt denies any crying spells Pt doing ok with celexa, lamictal and xanax PRn. Pt only takes xanax 1-2 per week Pt has not done lab yet Anxiety1 Pt has anxiety a nd depression and bipolar pt takes celexa, lamictal and xanax PRn and doing ok Pt denies any suicidal or homicidal thought Pt denies any crying spells. obesity1 Pt is obese ,Pt has hard time losing weight. anxiety1 Pt has chronic a nxiety and depression and mood swings Pt states that she tried to wean down on lamictal but she feels more mood swings since weaning off Pt states that she has not had lamictal for two weeks. Pt thinks that she should go back to lamictal. Pt states that xanax works well for her anxiety Pt wants refill. anxiety1 Pt has been gain ing weight Pt is not very active Pt is not on any diet Pt has not done lab yet Physical Pt needs annual physical. Pt c/o poor interests, weight gain, depressed, lack of motivation, frequent panic attacks, crying spells for one year. Pt did feel fatigue also and anxious with mood swings. Pt went to see MD and she was started on celexa and vistaril for anxiety and depression. Pt states that she feels much better in terms of her depressed mood and energy level. she no longer feels depressed. Pt also was started on lamictal for ? bipolar? pt states that she has mild mood swings but she does not have any manic attacks. Pt thinks that she has normal mod swings just like everybody else. Pt states that currently she still has frequent panic attacks with severe anxiety Pt does not think celexa, vistaril and lamictal are helping much for her anxiety Pt basically wants to get off lamictal and try some medication PRN for anxiety and panic attacks Pt denies any suicidal or homicidal thought Pt does not think vistaril is helping her panic attacks. Pt has panic attacks at least twice per week Instructions Date Instruction Additional Infor dyllan Weight management Related to Gen eralized Anxiety Disorder Increase physical activity Relat ed to Generalized Anxiety Disorder Special diet education Related t o Body mass index (BMI) 45.0-49.9, adult Assessments Type Assessment Date No Information
--- OUTSIDE RECORDS SUMMARY | 2025-04-30 12:32 | XMS_ITS | Clinical Summary ---
Author Organization [facility] Address [address] [place] [address] Care Team Providers Care Parker Name Role Phone Glo Oh MD Primary [...] on file Legal Sex Female 9:38 PM CASTER HELPER Gender Identity Not on file Sexual Orientation [...] 9:54 AM CDT Height 170.2 cm (5' 7) 04/21/2019 9:54 AM CDT Body Mass Index 44.23 04/21/2019 9:54 AM CDT Plan of Treatment Health Maintenance Due Date Last Done Comments Cervical Cancer Screening Pa p Smear (Age 30 to 64) Every 3 Years 1992 Annual Physical 1995 Hepatitis C 2010 DTaP, Tdap and Td Vaccines ( 1 - Tdap) 2011 Hepatitis B Vaccines (1 of 3 - 19+ 3-dose series) 2011 HPV Vaccines (1 - 3-dose SCD M series) 2019 Cervical Cancer Screening Pa p with HPV Testing (Age 30 to 64) Every 5 Years 2022 Cervical Cancer Screening with HPV 2022 COVID-19 Vaccine (2023-2 5 season) 2024 Meningococcal B Vaccine Aged Out No l [...] patient's age to complete this topic Insurance [facility] Care Teams Parker Relationship Specialty Start Date End Date Glo Oh MD [address] [place] [address] PCP - General FAMILY PRACTICE 04/20/19
--- OUTSIDE RECORDS SUMMARY | 2025-04-30 12:32 | XMS_ITS | Encounter Summary ---
Author Organization [facility] Address [facility] [place] [address] Care Team Providers Care Cash Accounting Clerk Name Role Phone Glo Oh MD Primary Care Pro vider Encounter Details Date Type Department Care Team (Late st Contact Info) Description 11/21/2017 Abstract [facility] CONVERSION [address] [place] [address] , Generic Conversion, Social History Tobacco Use Types Packs/Day Years Used Date Smoking Tobacco: Never Assessed Comments Unknown Sex and Gender Information Value Date Recorded Sex Assigned at Not on file Legal Sex Female 9:38 PM DIETARY MANAGER Gender Identity Not on file Sexual Orientation Not on file documented as of this encounter Plan of Treatment Not on file documented as of this encounter Visit Diagnoses Not on filedocumented in this encounter Care Teams Cash Accounting Clerk Relationship Specialty Start Date End Date Glo Oh MD [address] [place] [address] PCP - General FAMILY PRACTICE 04/20/19 documented as of this encounter
--- OUTSIDE RECORDS SUMMARY | 2025-04-30 12:32 | XMS_ITS | Encounter Summary ---
Author Organization [facility] Address [address] [place] [address] Care Team Providers Care Race Relations Professor Name Role Phone Darron Chilel MD Primary Care Provider [phone] Encounter Details Date Type Department Care Team (Late st Contact Info) Description 01/10/2021 Lab Requisition [facility] [address] [facility], [place] [id number] Jed Hauser MD [address] [facility] [place] [address] Social History Tobacco Use Types [...] AM CDT) Case Report Dermatopathology Report Case: [id number] Authorizing Provider: Jed Hauser MD Collected: 01/09/2021 03:33 AM Ordering Location: [facility] D[facility] Lab Received: 01/10/2021 07:20 AM [...] consists of 2 pieces of excision measuring [id number] and [id number]. The specimen is serially sectioned and a group sales representative section is submitted in cassette [...] purposes. Billing Codes Specimen Charges Stain Charges 40587 1 1 1:25 PM CDT DERMATOPATHOLOGY LABORATORY Embedded Images 1 1:25 PM CDT DERMATOPATHOLOGY LABORATORY Pathology/Cytolo gy TISSUE SPECIMEN FROM SKIN / Unknown 01/09/2021 3:33 AM CDT 01/10/2021 7:20 AM CDT Jed Hauser MD LAB - PATHOLOGY/CYTOLOGY ORDER NORBERTO Final Result DERMATOPATHOLOGY LABORATORY [facility] - Department of Dermatology [facility] Special[facility] Medicine [address] [place] [address], [address] [phone] documented in this encounter Visit Diagnoses Not on filedocumented in this encounter Care Teams Race Relations Professor Relationship Specialty Start Date End Date Darron Chilel MD PCP - General Family Medicine 12/10/20 documented as of this encounter
--- OUTSIDE RECORDS SUMMARY | 2025-04-30 12:32 | XMS_ITS | Clinical Summary ---
Author Organization [facility] Address [address] [facility] [place] [address] Care Team Providers Care District Agent Name Role Phone Darron Chilel MD Primary Care Provider [phone] Source Comments [facility],non-owned Affiliates and Associated Physician Practices is amultiple site organization consisting of ambulatory clinics and hospital sitesin [place], [place], [place] and [place]. This disclosure is being madepursuant to the Care Everywhere program and may not contain all information available regarding this patient. Last updated 18.[facility] Allergies Active Allergy Reactions Criticality Noted Date [...] 11/15/19 21 Active ergocalciferol (DRISDOL) 1.25 MG (96004 UT) capsule ergocalciferol (vitamin D2) 1,250 mcg (50,000 unit) capsule Active lamoTRIgine (LAMICTAL) 100 MG tablet once daily Active ondansetron, disintegrating, (ZOFRAN ODT) 4 MG tablet ondansetron 4 mg disintegrating tablet Active Multiple Vitamins-Minera ls (MULTIVITAMIN WOMEN PO) Active cranberry (CRANBERRY) 400 MG tablet Take 400 mg by mouth once daily Active Potosi-3 Fatty Acids (FISH OIL PO) vegan version [...] 3 - 19+ 3-dose series) 2011 HPV VACCINE (1 - 3-dose SCDM series) 2019 COVID-19 VACCINE (1 - 2023-2 5 season) 2024 DEPRESSION SCREENING 09/07/2024 INFLUENZA VACCINE (#1) 2025 ZOSTER VACCINE (1 of 2) 2042 [...] Documents on File Type Date Recorded Patient Workers Compensation Adjuster Expl anation Adv Directive/Living Will/POA 12/17/2016 Care Teams District Agent Relationship Specialty Start Date End Date Darron Chilel MD PCP - General Family Medicine 12/10/20
--- OUTSIDE RECORDS SUMMARY | 2025-04-30 12:32 | XMS_ITS | Encounter Summary ---
Author Organization [facility] Address [address] [place] [address] Care Team Providers Care Ordnance Officer Name Role Phone Darron Chilel MD Primary Care Provider [phone] Encounter Details Date Type Department Care Team (Late st Contact Info) Description 12/10/2020 Telephone [facility] - [address] [facility] [place] [id number] Loan Mak Social History Tobacco Use Types [...] on filedocumented in this encounter Care Teams Ordnance Officer Relationship Specialty Start Date End Date Darron Chilel MD PCP - General Family Medicine 12/10/20 documented as of this encounter
--- OUTSIDE RECORDS SUMMARY | 2025-04-30 12:32 | XMS_ITS | Encounter Summary ---
Author Organization [facility] Address [address] [place] [address] Care Team Providers Care Crew Clerk Name Role Phone Darron Chilel MD Primary Care Provider [phone] Encounter Details Date Type Department Care Team (Late st Contact Info) Description 11/15/2020 Lab Requisition [facility] [address] [facility] [place] [address] Jed Hauser MD [address] [facility] [place] [address] Social History Tobacco Use Types [...] Diagnosis Comments DERMATOPATHOLOGY Routine 11/14/2020 3:33 AM SNOW REMOVAL SUPERVISOR documented in this encounter Results * DERMATOPATHOLOGY (11/14/2020 3:33 AM SNOW REMOVAL SUPERVISOR) Case Report Dermatopathology Report Case: [id number] Authorizing Provider: Jed Hauser MD Collected: 11/14/2020 03:33 AM Ordering Location: [facility] Received: 11/15/2020 07:18 AM Pathologist: Grisel Mckinley MD Specimen: Skin, right post scalp 1:16 PM [facility] DERMATOPATHOLOGY LABORATORY Final Diagnosis Specimen A. SKIN, right post scalp: COMPOUND MELANOCYTIC NEVUS (D22.4) 1:16 PM [facility] DERMATOPATHOLOGY LABORATORY at 1316 SNOW REMOVAL SUPERVISOR Clinical History Irritated nevus. Path# [id number]. 1:16 PM [facility] DERMATOPATHOLOGY LABORATORY Gross Description Specimen A: Received is one formalin filled container labeled with the patient's name and designated right post scalp. The specimen consists of 2 pieces of shave biopsy measuring [id number] and [id number]. Jar 0. 1:16 PM [facility] DERMATOPATHOLOGY LABORATORY Microscopic Description Specimen A. SKIN, right post scalp: There are nests of melanocytes at the dermal-epidermal junction and within the dermis. 1:16 PM [facility] DERMATOPATHOLOGY LABORATORY Disclaimer An external and internal positive and negative controls are appropriate for the histochemical, immunohistochemical and immunofluorescence stain(s) in this case (if any), except where stated explicitly. The performance characteristics of the stain(s) cited in this report were developed and its performance characteristic determined by the Dermatopathology Laboratory at [facility], directed by Dr. Reji Jaime. These tests need not be, and therefore are not, approved by the [place] Food and Drug Administration. The tests are used for clinical purposes. Billing Codes Specimen Charges Stain Charges 39144 1 1 1:16 PM [facility] DERMATOPATHOLOGY LABORATORY Embedded Images 1:16 PM [facility] DERMATOPATHOLOGY LABORATORY Pathology/Cytolo gy TISSUE SPECIMEN FROM SKIN / Unknown 11/14/2020 3:33 AM SNOW REMOVAL SUPERVISOR 11/15/2020 7:18 AM SNOW REMOVAL SUPERVISOR us Jed Hauser MD LAB - PATHOLOGY/CYTOLOGY ORDER NORBERTO Final Result DERMATOPATHOLOGY LABORATORY [facility] - Department of Dermatology [address], [address] [phone] documented in this encounter Visit Diagnoses Not on filedocumented in this encounter Care Teams Crew Clerk Relationship Specialty Start Date End Date Darron Chilel MD PCP - General Family Medicine 12/10/20 documented as of this encounter
--- OUTSIDE RECORDS SUMMARY | 2025-04-30 12:32 | XMS_ITS | Clinical Summary ---
Author Organization [facility] Address [address] [place] [phone] Phone Care Team Providers Care Content Editor Name Role Phone Diallo Mccall Primary Care Provider [phone] Medications ALPRAZOLAM ORAL Take by mouth. Active Encounters Date Type Department Care Team Description 04/18/2025 External Device Data STL ABSTRACTION Provider, Abstract 04/18/2025 External Device Data ST[place] ABSTRACTION Provider, Abstract 04/12/2025 External Device Data ST[place] ABSTRACTION Provider, Abstract 03/07/2025 External Device Data ST[facility] ABSTRACTION Provider, Abstract 03/07/2025 External Device Data ST[place] ABSTRACTION Provider, Abstract 03/07/2025 External Device Data ST[facility] ABSTRACTION Provider, Abstract 02/28/2025 External Device Data ST[facility] ABSTRACTION Provider, Abstract [...] on file Legal Sex Female 2:11 AM POWER MARKETER Gender Identity Not on file Sexual Orientation Not on file Last Filed Vital Signs Vital Sign Reading Time Taken Comments Blood Pressure 137/95 11/04/2024 7:36 AM POWER MARKETER Pulse 64 11/04/2024 7:36 AM POWER MARKETER Temperature 36.4 C (97.5 F) 11/04/2024 5:23 AM POWER MARKETER Respiratory Rate 18 11/04/2024 5:23 AM POWER MARKETER Oxygen Saturation 99% 11/04/2024 7:36 AM POWER MARKETER Inhaled Oxygen Concentration - - Weight 125.6 kg (277 lb) 11/04/2024 2:29 AM POWER MARKETER Height 170.2 cm (5' 7) 11/04/2024 2:29 AM POWER MARKETER Body Mass Index 43.38 11/04/2024 2:29 AM POWER MARKETER Plan of Treatment Health Maintenance Due Date Last Done Comments HPV VACCINES (1 - 3-dose series) 2007 DTAP/TDAP/TD VACCINES (1 - Tdap) 2011 HEPATITIS B VACCINES (1 of 3 - 19+ 3-dose series) 06/08 HPV/Cotest (21-29) 2013 CERVICAL CANCER SCREENING 2022 HPV/Cotest (30-65) 2022 PAP SMEAR 2022 INFLUENZA VACCINE (#1) 2025 Care Teams Content Editor Relationship Specialty Start Date End Date Diallo Mccall DO [facility] [phone] PCP - General Family Practice 11/04/24
--- OUTSIDE RECORDS SUMMARY | 2025-04-30 12:33 | XMS_ITS | Patient Health Record ---
Author Organization [facility] Address [address] [place] [address] Care Team Providers Care Bioprocessing Manufacturing Technician Name Role Phone Shade Borja Unavailable [phone] Reason For Referral No Information Medications Medication SIG (Take, Route, Frequency, Duration) Notes Start Date End Date Status Citalopram Hydrobromide 10 MG Tablet Oral 12/31/2020 Active Clindamycin Phosphate 1 % Solution External 12/31/2020 Active ALPRAZolam 0.5 MG Tablet Oral 12/31/2020 Active Pantoprazole Sodium 40 MG Tablet Delayed Release Oral 12/31/2020 Active CYANOCOBALAMIN (VITAMIN B-12) *Reorder from CHAINels for eRx and Interaction Alerts* 12/31/2020 Active Spironolactone 100 MG Tablet Oral 12/31/2020 Active lamoTRIgine 100 MG Tablet Oral 12/31/2020 Active Sertraline HCl 25 MG Tablet Oral 12/31/2020 Active Rosuvastatin Calcium 10 MG Tablet Oral 12/31/2020 Active Sertraline HCl 100 MG Tablet Oral 12/31/2020 Active Cranberry 400 mg Capsule Oral 12/31/2020 Active Immunizations Vaccine Route Administration Date Status Comme nts Influenza, seasonal, injecta ble, preservative free, 3 yrs and above Unknown 06/07/2014 Administered MMR Unknown 12/29/2015 Administered Social History Social History Additional Details Category Social Info Options Details Migrated Social History Migrated Social History Alcohol Intake: None 12/31/2020,Tobacco Years: Former smoker 12/17/2020,Smoking Status: 7 12/31/2020 Plan Of Treatment No Information Insurance Providers Payer Name Payer Address Payer Phone Subscriber Number Group Number Insured Name Patient Relationship to Insured Coverage Start Date Coverage End Date [employer] [address] [place] [address] [id number] TAPAN VIVAR Self - patient is the insured Medical (General) History Surgical History Surgery Date(Month/Year) Sinus surgery Tonsilectomy/adenoids Tonsillectomy ([id number]) Cosmetic surgery 09/07/2002 Endometrial ablation (26551) 09/07/2019 Myringotomy tube placement 09/07/2019
[2025-04-30 12:44] VITALS: BP 131/84; PULSE 88; RESP 18; TEMP 36.7; O2SAT 99
[2025-04-30] MEDS: ONDANSETRON INJ 4 MG/2 ML VIAL 8 MG IV PUSH (12:56)
--- NOTE | 2025-04-30 12:57 | ED.NAVMDI ---
HPI - Nausea/Vomiting/Diarrhea General Chief complaint: Nausea/Vomiting/Diarrhea Stated complaint: Vomiting, shaky, chills Time Seen by Provider: 04/30/25 12:51 Source: patient Mode of arrival: ambulatory Limitations: no limitations History of Present Illness HPI Narrative: 34 YEARS OLD WHITE FEMALE DROVE HERSELF TO THE EMERGENCY ROOM WITH NAUSEA, VOMITING AND DRY HEAVING STARTED EARLY THIS MORNING. PATIENT REPORT LAST ALCOHOL INTAKE LAST NIGHT WAS 10:00 P.M.. PATIENT IS TELLING ME THAT LAST TIME HAD ALCOHOL OVER 1 YEAR AGO. WOKE UP THIS MORNING FEELING HUNG OVER, SHAKING, AND VOMITING AND DRY HEAVING. SHE DENIES ANY FEVER, SICK CONTACT OR UPPER RESPIRATORY SYMPTOMS. Related Data Home Medications ?Medication ?Instructions ?Recorded ?Confirmed ?Last Taken ?Type alprazolam 0.5 mg tablet 04/21/20 Unknown History hydrocodone 5 mg-acetaminophen 325 04/21/20 Unknown History mg tablet ibuprofen 800 mg tablet 04/21/20 Unknown History lamotrigine 100 mg tablet 04/21/20 Unknown History ondansetron 4 mg disintegrating 04/21/20 Unknown History tablet pantoprazole 40 mg tablet,delayed PO 04/21/20 Unknown History release rosuvastatin 10 mg tablet mg 04/21/20 Unknown History Allergies Allergy/AdvReac Type Severity Reaction Status Date / Time Cephalosporins Allergy Intermediate RASH Verified 04/30/25 12:31 Review of Systems Review of Systems: All systems reviewed & are unremarkable except as noted in HPI and below PMFSH Past Medical History Medical History (Updated 04/30/25 @ 14:09 by Francisco Blankenship MD) GERD (gastroesophageal reflux disease) Depression Surgical History Surgical History Hx of tonsillectomy Social History Social History Smoking status: Former smoker Second hand tobacco smoke exposure: No Smoking end date: 09/07/12 Alcohol intake: current Gender identity (if verbalized by the patient): Female Exam Narrative: GENERAL APPEARANCE: WELL-DEVELOPED, WELL-NOURISHED SKIN: NORMAL COLOR HEAD: NORMOCEPHALIC, NONTRAUMATIC EYES: CLEAR CONJUNCTIVA ENT: OROPHARYNX NORMAL, EARS NORMAL, NOSE NORMAL NECK: SUPPLE, NONTENDER CHEST AND RESPIRATORY: AIRWAY PATENT, NO RESPIRATORY DISTRESS, NO ACCESSORY MUSCLE USE HEART: REGULAR RATE/RHYTHM ABDOMEN: SOFT, NONTENDER, NO ORGANOMEGALY, QUIET BOWEL SOUNDS VASCULAR: NORMAL PERIPHERAL PULSES, NORMAL CAPILLARY REFILL. MUSCULOSKELETAL: NORMAL RANGE OF MOTION, NONTENDER BACK NEUROLOGIC: ALERT AND ORIENTED ?3, COMPRESSOR SERVICE TECHNICIAN IS NORMAL TESTED, NO GROSS MOTOR DEFICIT Course Vital Signs Vital signs: Vital Signs Temperature 36.7 C 04/30/25 12:44 Pulse Rate 88 04/30/25 12:44 Respiratory Rate 18 04/30/25 12:44 Blood Pressure 131/84 04/30/25 12:44 Pulse Oximetry 99 04/30/25 12:44 Oxygen Delivery Room Air 04/30/25 12:44 Temperature 36.7 C 04/30/25 12:44 Pulse Rate 88 04/30/25 12:44 Respiratory Rate 18 04/30/25 12:44 Blood Pressure 131/84 04/30/25 12:44 Pulse Oximetry 99 04/30/25 12:44 Oxygen Delivery Room Air 04/30/25 12:44 MDM - Nausea/Vomiting/Diarrhea MDM Narrative Medical decision making narrative: PATIENT PRESENTS WITH NAUSEA AND VOMITING STARTED RESEARCH CENTER DIRECTOR VITAL SIGNS ARE STABLE PHYSICAL EXAMINATION IS UNREMARKABLE DIFFERENTIAL DIAGNOSIS INCLUDE [place]ANG[place] SECONDARY TO ALCOHOL LAST NIGHT, GASTROENTERITIS, LESS LIKELY ELECTROLYTE AND DEHYDRATION BLOOD WORKUP TODAY INCLUDES CBC, CMP, LIPASE SHOWED WBC 11.0, OTHERWISE WITHIN NORMAL LIMIT URINALYSIS SHOWED NO EVIDENCE OF INFECTION PATIENT TESTED NEGATIVE FOR COVID FLU AND RSV PATIENT RECEIVED 1 L OF NORMAL SALINE IV AND ZOFRAN PRIOR TO DISCHARGE WITH SIGNIFICANT IMPROVEMENT DIAGNOSIS VOMITING HIGH LIKELY SECONDARY TO HUNG OVER DISCHARGED ON ZOFRAN NEEDED THE PT WAS DISCHARGED TO HOME.THE PT,S CONDITION UPON DISCHARGE WAS FAIR,EDUCATION WAS PROVIDED TO THE PT IN REFERENCE TO THE FINAL IMPRESSION,DISCHARGE STUDY RESULTS,TREATMENT,PROGNOSIS AND NEED FOR FOLLOW UP . Differential Diagnosis Differential diagnosis: Likely other ( ABOVE) Medical Records Attestation: I reviewed the patient's medical records. Lab Data Attestation: I reviewed the patient's lab results. 04/30/25 12:49 04/30/25 12:49 Labs: Lab Results 04/30/25 04/30/25 Range/Units 12:49 13:13 WBC 11.0 H (4.5-10.0) K/mm3 RBC 5.18 (4.2-5.4) M/mm3 Hgb 15.4 H (12.0-15.0) g/dL Hct 44.8 (37.0-47.0) % MCV 86.5 (80-100) fl MCH 29.7 (26-34) pg MCHC 34.4 (32-36) g/dl RDW 12.5 (11.5-14.5) % Plt Count 285 (150-375) k/mm3 MPV 9.5 (7.4-10.4) fl Immature Gran % (Auto) 0.5 (0-0.5) % Neut % (Auto) 72.4 (45.5-73.1) % Lymph % (Auto) 20.1 (18.3-44.2) % [place] % (Auto) 5.6 (2.6-8.5) % Eos % (Auto) 0.9 (0-4.4) % Baso % (Auto) 0.5 (0.2-1.2) % Lymph # (Auto) 2.21 (0.9-3.2) K/mm3 [place] # (Auto) 0.6 (0.1-0.6) K/mm3 Eos # (Auto) 0.1 (0-0.3) K/mm3 Baso # (Auto) 0.1 (0.0-0.1) K/mm3 Abs Immat Gran (auto) 0.06 H (0.00-0.031) K/mm3 Absolute Neuts (auto) 8.0 H (1.3-6.7) K/mm3 Absolute Nucleated RBC 0.000 (0.0-0.012) K/mm3 Nucleated RBC % 0.0 (0.0-0.2) % Sodium 136 L (137-145) mmol/L Potassium 4.2 (3.4-5.0) mmol/L Chloride 107 (98-107) mmol/L Carbon Dioxide 18 L (22-30) mmol/L Anion Gap 11 (4-12) mmol/L BUN 10 (7-17) mg/dL Creatinine 0.66 L (0.7-1.0) mg/dL Estim Creat Clear Calc 143 ml/min Estimated GFR > 60 (59 - ) Glucose 99 (65-110) mg/dL Calcium 9.4 (8.4-10.2) mg/dL Total Bilirubin 0.5 (0.2-1.3) mg/dL AST 29 (14-36) U/L ALT 28 (6-35) U/L Alkaline Phosphatase 73 (38-126) U/L Total Protein 8.0 (6.3-8.2) g/dL Albumin 4.6 (3.5-5.1) g/dL Lipase 89 (23-300) U/L Urine Color Yellow (Yellow) Urine Appearance Clear (Clear) Urine pH 8.0 (5.0-9.0) Ur Specific [place] 1.021 (1.001-1.035) Urine Protein Trace (Negative) mg/dL Urine Glucose (UA) Negative (Negative) mg/dL Urine Ketones Negative (Negative) mg/dL Ur Blood (Man) Negative (Negative) Urine Nitrate Negative (Negative) Urine Bilirubin Negative (Negative) Urine Urobilinogen 0.2 (<2.0) mg/dL Leukocyte Esterase Rfl Negative (Negative) FRANCOIS/UL Urine RBC 3-5 H (0-2) /hpf Urine WBC 0-5 (0-3) /hpf Ur Squamous Epith Cells None seen (Few) /hpf Urine Bacteria None seen /hpf Urine Casts 0-2 Influenza A (RT-PCR) Negative (Negative) Influenza B (RT-PCR) Negative (Negative) RSV (RT-PCR) Negative (Negative) SARS-CoV-2 RNA (RT-PCR) Negative (Negative) Critical Care Time Critical Care Time Critical Care Time: No Discharge Plan Discharge Clinical Impression: Vomiting Patient Disposition: Home Condition: Improved Instructions: Acute Nausea and Vomiting (ED) Additional Instructions: RETURN IF SYMPTOMS ARE WORSENING , CALL YOUR FAMILY PHYSICIAN FOR APPOINTMENT, TAKE TYLENOL NEEDED FOR ACHES AND PAIN, CONTINUE HOME MEDICATIONS. Patient Language: Libyan Prescriptions: New ondansetron 4 mg tablet,disintegrating 4 mg PO Q4H PRN (Reason: nausea and vomiting) 3 Days Qty: 10 0RF No Action amoxicillin-pot clavulanate 875-125 mg tablet 1 tablet PO Q12H Qty: 20 0RF hydrocodone-acetaminophen 5-325 mg tablet 1 tablet PO Q12H PRN (Reason: pain) Qty: 14 0RF amoxicillin-pot clavulanate 875-125 mg tablet 1 tablet PO Q12H 7 Days Qty: 14 0RF naproxen 375 mg tablet 375 mg PO BID Qty: 14 0RF alprazolam 0.5 mg tablet pantoprazole 40 mg tablet,delayed release (DR/EC) PO lamotrigine 100 mg tablet rosuvastatin 10 mg tablet ibuprofen 800 mg tablet hydrocodone-acetaminophen 5-325 mg tablet ondansetron 4 mg tablet,disintegrating citalopram 10 mg tablet 10 mg PO DAILY Qty: 30 2RF Follow-up/Referrals: Stefany,DO Diallo [Primary Care Provider, Family Practice]
[2025-04-30 12:58] LABS: Hematocrit 44.8 % (37.0-47.0); Hemoglobin 15.4 g/dL (12.0-15.0); Immature Granulocyte Percent A 0.5 % (0-0.5); Lymphocytes Absolute Auto 2.21 K/mm3 (0.9-3.2); Mean Corpuscular HGB Conc 34.4 g/dl (32-36); Mean Corpuscular Hemoglobin 29.7 pg (26-34); Mean Corpuscular Volume 86.5 fl (80-100); Nucleated Red Blood Cells Absolute Auto 0.000 K/mm3 (0.0-0.012); Nucleated Red Blood Cells Perc 0.0 % (0.0-0.2); Platelet Count Result 285 k/mm3 (150-375); Red Blood Count 5.18 M/mm3 (4.2-5.4); White Blood Count 11.0 K/mm3 (4.5-10.0)
[2025-04-30 13:02] LABS: Add Urine Microscopic? YES; Appearance Urine Clear (Clear); Glucose Urine UA Negative (Negative); Leukocyte Esterase Ur Negative LEU/UL (Negative); Nitrate Urine Negative (Negative); Non Pathogenic Casts 0-2; Specific Grav Ur 1.021 (1.001-1.035)
[2025-04-30 13:22] LABS: Alanine Aminotransferase 28 U/L (6-35); Albumin Level 4.6 g/dL (3.5-5.1); Alkaline Phosphatase 73 U/L (38-126); Anion Gap 11 mmol/L (4-12); Aspartate Amino Transferase 29 U/L (14-36); Bilirubin,Total 0.5 mg/dL (0.2-1.3); Blood Urea Nitrogen 10 mg/dL (7-17); Calcium 9.4 mg/dL (8.4-10.2); Carbon Dioxide 18 mmol/L (22-30); Chloride 107 mmol/L (98-107); Estimated CRCL calculation 143 ml/min; Estimated Glomerular Filt Rate > 60; Glucose 99 mg/dL (65-110); Lipase 89 U/L (23-300); Potassium 4.2 mmol/L (3.4-5.0); Sodium 136 mmol/L (137-145); Total Protein 8.0 g/dL (6.3-8.2)
[2025-04-30] MEDS: SODIUM CHLORIDE 0.9% IV 1,000 ML 999 ML IV CONT (13:30)
[2025-04-30 13:55] LABS: Influenza A QL RT-PCR Negative (Negative); Influenza B QL RT-PCR Negative (Negative); RSV RNA, RT-PCR Negative (Negative); SARS-CoV-2 RNA PCR Negative (Negative)
== END 2025-04-30 14:21 | disposition home or self-care (01) ==
PROVIDERS: Emergency Medicine; Emergency Provider Emergency Medicine; PCP Family Medicine
DX: R11.2 Nausea with vomiting, unspecified (principal); Z20.822 Contact with and (suspected) exposure to COVID-19; K21.9 Gastro-esophageal reflux disease without esophagitis; F32.A Depression, unspecified; Z87.891 Personal history of nicotine dependence
CPT/HCPCS: 36415; 80053; 81001; 83690; 85025; 87637; 96361; 96374; 99284; J2405; J7030

== ENCOUNTER 2025-08-23 10:48 | Outpatient (CLI) | payer OTHER, SELFPAY ==
--- NOTE | ~2025-08-23 | US_ITS ---
ULTRASOUND ABDOMEN LIMITED (RIGHT UPPER QUADRANT) Clinical History: unspecified abdominal pain Comparison: CT abdomen and pelvis 05/11/2021 Technique: Right upper quadrant sonography Findings: Liver: Enlarged. Echogenic. No intrahepatic biliary ductal dilatation. Normal hepatopedal flow main portal vein. Common Duct: Normal caliber. 4 mm. Gallbladder: No stones. No wall thickening. No pericholecystic fluid. Pancreas: Visualized portions unremarkable. IMPRESSION: 1. No acute findings. Reviewed, dictated and finalized at location [facility] IMPRESSION: 1. No acute findings.
--- OUTSIDE RECORDS SUMMARY | 2025-08-23 12:54 | XMS_ITS | Encounter Summary ---
Author Organization [facility] Address [address] [facility] [place] [address] Care Team Providers Care Soil Biology Teacher Name Role Phone Darron Chilel MD Primary Care Provider Encounter Details Date Type Department Care Team (Late st Contact Info) Description 11/15/2020 Lab Requisition [facility] [address] [facility] [place] [address] Jed Hauser MD [address] [facility] [address] [address] [address] [place], [place] [id number] Social History Tobacco Use Types Packs/Day Years [...] Diagnosis Comments DERMATOPATHOLOGY Routine 11/14/2020 3:33 AM INTAKE WORKER documented in this encounter Results * DERMATOPATHOLOGY (11/14/2020 3:33 AM INTAKE WORKER) Case Report Dermatopathology Report Case: [id number] Authorizing Provider: Jed Hauser MD Collected: 11/14/2020 03:33 AM Ordering Location: [facility] Received: 11/15/2020 07:18 AM Pathologist: Grisel Mckinley MD Specimen: Skin, right post scalp 1:16 PM [facility] DERMATOPATHOLOGY LABORATORY Final Diagnosis Specimen A. SKIN, right post scalp: COMPOUND MELANOCYTIC NEVUS (D22.4) 1:16 PM [facility] DERMATOPATHOLOGY LABORATORY at 1316 INTAKE WORKER Clinical History Irritated nevus. Path# [id number]. 1:16 PM [facility] DERMATOPATHOLOGY LABORATORY Gross Description Specimen A: Received is one formalin filled container labeled with the patient's name and designated right post scalp. The specimen consists of 2 pieces of shave biopsy measuring [id number] and [id number]. Jar 0. 1:16 PM [facility] DERMATOPATHOLOGY LABORATORY Microscopic Description Specimen A. SKIN, right post scalp: There are nests of melanocytes at the dermal-epidermal junction and within the dermis. 1:16 PM [facility] DERMATOPATHOLOGY LABORATORY Disclaimer An external and internal positive and negative controls are appropriate for the histochemical, immunohistochemical and immunofluorescence stain(s) in this case (if any), except where stated explicitly. The performance characteristics of the stain(s) cited in this report were developed and its performance characteristic determined by the Dermatopathology Laboratory at [facility], directed by Dr. Reji Jaime. These tests need not be, and therefore are not, approved by the [place] Food and Drug Administration. The tests are used for clinical purposes. Billing Codes Specimen Charges Stain Charges 35343 1 1 1:16 PM [facility] DERMATOPATHOLOGY LABORATORY Embedded Images 1:16 PM [facility] DERMATOPATHOLOGY LABORATORY Pathology/Cytolo gy TISSUE SPECIMEN FROM SKIN / Unknown 11/14/2020 3:33 AM INTAKE WORKER 11/15/2020 7:18 AM INTAKE WORKER us Jed Hauser MD LAB - PATHOLOGY/CYTOLOGY ORDER NORBERTO Final Result DERMATOPATHOLOGY LABORATORY [facility] - Department of Dermatology [address] [phone] documented in this encounter Visit Diagnoses Not on filedocumented in this encounter Care Teams Soil Biology Teacher Relationship Specialty Start Date End Date Darron Chilel MD PCP - General Family Medicine 12/10/20 documented as of this encounter
--- OUTSIDE RECORDS SUMMARY | 2025-08-23 12:54 | XMS_ITS | Clinical Summary ---
Author Organization [facility] Address [address] [facility] [place] [address] Care Team Providers Care Can Line Operator Name Role Phone Darron Chilel MD Primary Care Provider [phone] Source Comments [facility],non-owned Affiliates and Associated Physician Practices is amultiple site organization consisting of ambulatory clinics and hospital sitesin [place], [place], [place] and [place]. This disclosure is being madepursuant to the Care Everywhere program and may not contain all information available regarding this patient. Last updated 18.[facility] Allergies Active Allergy Reactions Criticality Noted Date [...] 11/15/19 21 Active ergocalciferol (DRISDOL) 1.25 MG (35521 UT) capsule ergocalciferol (vitamin D2) 1,250 mcg (50,000 unit) capsule Active lamoTRIgine (LAMICTAL) 100 MG tablet once daily Active ondansetron, disintegrating, (ZOFRAN ODT) 4 MG tablet ondansetron 4 mg disintegrating tablet Active Multiple Vitamins-Minera ls (MULTIVITAMIN WOMEN PO) Active cranberry (CRANBERRY) 400 MG tablet Take 400 mg by mouth once daily Active [place]-3 Fatty Acids (FISH OIL PO) vegan version [...] Used Date Smoking Tobacco: Former Cigarettes 0 Q uit: 12/10/2014 Smokeless Tobacco: Never Alcohol [...] VACCINE (1 - 3-dose SCDM series) 2019 DEPRESSION SCREENING 09/07/2024 COVID-19 VACCINE (1 - 2024-2 6 season) 2025 INFLUENZA VACCINE (#1) 2025 ZOSTER VACCINE (1 [...] Documents on File Type Date Recorded Patient Printed Circuit Board Pcb Draftsman Expl anation Adv Directive/Living Will/POA 12/17/2016 Care Teams Can Line Operator Relationship Specialty Start Date End Date Darron Chilel MD PCP - General Family Medicine 12/10/20
--- OUTSIDE RECORDS SUMMARY | 2025-08-23 12:54 | XMS_ITS | Encounter Summary ---
Author Organization [facility] Address [address] [facility] [place] [address] Care Team Providers Care Sr. Director Product Management Name Role Phone Darron Chilel MD Primary Care Provider Encounter Details Date Type Department Care Team (Late st Contact Info) Description 01/10/2021 Lab Requisition [facility] [address] [facility], [place] [address] Jed Hauser MD [address] [place] [phone] Social History Tobacco Use Types Packs/Day Years [...] AM CDT) Case Report Dermatopathology Report Case: [id number] Authorizing Provider: Jed Hauser MD Collected: 01/09/2021 03:33 AM Ordering Location: [facility] Lab Received: 01/10/2021 07:20 AM [...] consists of 2 pieces of excision measuring [id number] and [id number]. The specimen is serially sectioned and a account representative section is submitted in cassette 1. [...] characteristic determined by the Dermatopathology Laboratory at [facility], directed by Dr. Reji Jaime. These tests need not be, and therefore are not, approved by the [place] Food and Drug Administration. The tests are used for clinical purposes. Billing Codes Specimen Charges Stain Charges 62147 1 1 1:25 PM CDT DERMATOPATHOLOGY LABORATORY Embedded Images 1 1:25 PM CDT DERMATOPATHOLOGY LABORATORY Pathology/Cytolo gy TISSUE SPECIMEN FROM SKIN / Unknown 01/09/2021 3:33 AM CDT 01/10/2021 7:20 AM CDT us Jed Hauser MD LAB - PATHOLOGY/CYTOLOGY ORDER NORBERTO Final Result DERMATOPATHOLOGY LABORATORY [facility] - Department of Dermatology [address], [address] [phone] documented in this encounter Visit Diagnoses Not on filedocumented in this encounter Care Teams Sr. Director Product Management Relationship Specialty Start Date End Date Darron Chilel MD PCP - General Family Medicine 12/10/20 documented as of this encounter
--- OUTSIDE RECORDS SUMMARY | 2025-08-23 12:54 | XMS_ITS | Encounter Summary ---
Author Organization [facility] Address [facility] [address] [place] [address] Care Team Providers Care Golf Starter And Ranger Name Role Phone Glo Oh MD Primary Care Pro vider Encounter Details Date Type Department Care Team (Late st Contact Info) Description 11/21/2017 Abstract [facility] CONVERSION [address] [place] [address] , Generic Conversion, Social History Tobacco Use Types Packs/Day Years Used Date Smoking Tobacco: Never Assessed Comments Unknown Sex and Gender Information Value Date Recorded Sex Assigned at Not on file Legal Sex Female 9:38 PM CADDY Gender Identity Not on file Sexual Orientation Not on file documented as of this encounter Plan of Treatment Not on file documented as of this encounter Visit Diagnoses Not on filedocumented in this encounter Care Teams Golf Starter And Ranger Relationship Specialty Start Date End Date Glo Oh MD [address] [place] [address] PCP - General FAMILY PRACTICE 04/20/19 documented as of this encounter
--- OUTSIDE RECORDS SUMMARY | 2025-08-23 12:54 | XMS_ITS | Clinical Summary ---
Author Organization [facility] Address [address] [place] [address] Phone Care Team Providers Care Internal Communications Intern Name Role Phone Diallo Mccall Primary Care Provider [phone] Medications ALPRAZOLAM ORAL Take by mouth. Active Encounters Date Type Department Care Team Description 08/08/2025 External Device Data [facility] ABSTRACTION Provider, Abstract 07/25/2025 External Device Data [facility] ABSTRACTION Provider, Abstract 07/19/2025 10:00 AM ART CONSULTANT - 07/19/2025 11:59 PM [facility] Hospital Encounter [facility] [address] [place] [address] [facility], External Provider Discharge Disposition: Home or Self Care 07/19/2025 9:55 AM ART CONSULTANT - 07/19/2025 11:59 PM [facility] Hospital Encounter [facility] [address] [place] [address] [facility], External Provider Discharge Disposition: Home or Self Care 07/18/2025 External Device Data [facility] ABSTRACTION Provider, Abstract 07/18/2025 External Device Data [facility] ABSTRACTION Provider, Abstract 07/18/2025 External Device Data [facility] ABSTRACTION Provider, Abstract 07/11/2025 External Device Data [facility] ABSTRACTION Provider, Abstract 07/05/2025 External Device Data [facility] ABSTRACTION Provider, Abstract 07/04/2025 External Device Data [facility] ABSTRACTION Provider, Abstract 06/28/2025 External Device Data [facility] ABSTRACTION Provider, Abstract 06/28/2025 External Device Data [facility] ABSTRACTION Provider, Abstract 06/20/2025 External Device Data [facility] ABSTRACTION Provider, Abstract 06/13/2025 External Device Data [facility] ABSTRACTION Provider, Abstract 06/06/2025 External Device Data [facility] ABSTRACTION Provider, Abstract 06/06/2025 External Device Data [facility] ABSTRACTION Provider, Abstract [...] on file Legal Sex Female 2:11 AM ART CONSULTANT Gender Identity Not on file Sexual Orientation Not on file Last Filed Vital Signs Vital Sign Reading Time Taken Comments Blood Pressure 137/95 11/04/2024 7:36 AM ART CONSULTANT Pulse 64 11/04/2024 7:36 AM ART CONSULTANT Temperature 36.4 C (97.5 F) 11/04/2024 5:23 AM ART CONSULTANT Respiratory Rate 18 11/04/2024 5:23 AM ART CONSULTANT Oxygen Saturation 99% 11/04/2024 7:36 AM ART CONSULTANT Inhaled Oxygen Concentration - - Weight 125.6 kg (277 lb) 11/04/2024 2:29 AM ART CONSULTANT Height 170.2 cm (5' 7) 11/04/2024 2:29 AM ART CONSULTANT Body Mass Index 43.38 11/04/2024 2:29 AM ART CONSULTANT Plan of Treatment Health Maintenance Due Date Last Done Comments DTAP/TDAP/TD VACCINES (1 - Tdap) 2011 HEPATITIS B VACCINES (1 of 3 - 19+ 3-dose series) 06/08 HPV/Cotest (21-29) 2013 CERVICAL CANCER SCREENING 2022 HPV/Cotest (30-65) 2022 PAP SMEAR 2022 INFLUENZA VACCINE (#1) 2025 06/07/2014 HPV VACCINES (No Doses Required) Completed Procedures Procedure Name Priority Date/Time Associated Diagnosis Comments MAMMO PRIOR STUDY Routine 07/19/2025 10: 00 AM ART CONSULTANT Follow-up exam MAMMO PRIOR STUDY Routine 07/19/2025 9:5 5 AM ART CONSULTANT Follow-up exam from Last 3 Months Results * MAMMO PRIOR STUDY (07/19/2025 10:00 AM ART CONSULTANT) Only the most recent of2 resultswithin the time period is included. Narrative 08/08/2025 9:52 AM ART CONSULTANT This exam was auto finalized to allow images to be scanned to PACS. us External Provider [facility] DIAGNOSTIC IMAGING ORDER NORBERTO Final Result from Last 3 Months Care Teams Internal Communications Intern Relationship Specialty Start Date End Date Diallo Mccall DO [address] [place] [id number] PCP - General Family Practice 11/04/24
--- OUTSIDE RECORDS SUMMARY | 2025-08-23 12:54 | XMS_ITS | Encounter Summary ---
Author Organization [facility] Address [address] [place] [address] Care Team Providers Care Early Childhood Coordinator Name Role Phone Darron Chilel MD Primary Care Provider Encounter Details Date Type Department Care Team (Late st Contact Info) Description 12/10/2020 Telephone [facility] - [address] [facility] [place] [id number] Loan Mak Social History Tobacco Use Types [...] on filedocumented in this encounter Care Teams Early Childhood Coordinator Relationship Specialty Start Date End Date Darron Chilel MD PCP - General Family Medicine 12/10/20 documented as of this encounter
--- OUTSIDE RECORDS SUMMARY | 2025-08-23 12:54 | XMS_ITS | Clinical Summary ---
Author Organization [facility] Address [address] [place] [id number] Care Team Providers Care Aviation Manager Name Role Phone Glo Oh MD Primary [...] on file Legal Sex Female 9:38 PM MARKET MAKER Gender Identity Not on file Sexual Orientation [...] Cancer Screening with HPV 2022 COVID-19 Vaccine (2024-2 6 season) 2025 Influenza Adult (#1) 2025 Hepatitis A Vaccines Aged Out No long er eligible based [...] patient's age to complete this topic Insurance [facility] Care Teams Aviation Manager Relationship Specialty Start Date End Date Glo Oh MD [address] [place] [address] PCP - General FAMILY PRACTICE 04/20/19
--- OUTSIDE RECORDS SUMMARY | 2025-08-23 12:55 | XMS_ITS | Patient Health Record ---
Author Organization [facility] Address [address] [place] [address] Care Team Providers Care Cardiopulmonary Technician And Eeg Tech Name Role Phone Shade Borja Unavailable [phone] Reason For Referral No Information Medications Medication SIG (Take, Route, Frequency, Duration) Notes Start Date End Date Status Citalopram Hydrobromide 10 MG Tablet Oral 12/31/2020 Active Clindamycin Phosphate 1 % Solution External 12/31/2020 Active ALPRAZolam 0.5 MG Tablet Oral 12/31/2020 Active Pantoprazole Sodium 40 MG Tablet Delayed Release Oral 12/31/2020 Active CYANOCOBALAMIN (VITAMIN B-12) *Reorder from Yippy for eRx and Interaction Alerts* 12/31/2020 Active Spironolactone 100 MG Tablet Oral 12/31/2020 Active lamoTRIgine 100 MG Tablet Oral 12/31/2020 Active Sertraline HCl 25 MG Tablet Oral 12/31/2020 Active Rosuvastatin Calcium 10 MG Tablet Oral 12/31/2020 Active Sertraline HCl 100 MG Tablet Oral 12/31/2020 Active Cranberry 400 mg Capsule Oral 12/31/2020 Active Immunizations Vaccine Route Administration Date Status Comme nts MMR Unknown 12/29/2015 Administered Influenza, seasonal, injecta ble, preservative free, 3 yrs and above Unknown 06/07/2014 Administered Social History Social History Additional Details Category Social Info Options Details Migrated Social History Migrated Social History Alcohol Intake: None 12/31/2020,Tobacco Years: Former smoker 12/17/2020,Smoking Status: 7 12/31/2020 Plan Of Treatment No Information Insurance Providers Payer Name Payer Address Payer Phone Subscriber Number Group Number Insured Name Patient Relationship to Insured Coverage Start Date Coverage End Date [employer] [employer] [address] [place] [address] [id number] TAPAN VIVAR Self - patient is the insured Medical (General) History Surgical History Surgery Date(Month/Year) Sinus surgery Tonsilectomy/adenoids Tonsillectomy ([id number]) Cosmetic surgery 09/07/2002 Endometrial ablation (52090) 09/07/2019 Myringotomy tube placement 09/07/2019
== END 2025-08-23 10:49 | disposition home or self-care (01) ==
DX: R10.9 Unspecified abdominal pain (principal)
CPT/HCPCS: 76705

== ENCOUNTER 2025-08-27 21:41 | Emergency (ER) | payer SELFPAY | END 2025-08-27 22:04 | disposition left against medical advice (07) | DX: Z53.21 Procedure and treatment not carried out due to patient leaving prior to being seen by health care provider (principal) | CPT/HCPCS: 99199 ==